=== PATIENT | female | born 1935 | race Caucasian/White ===

== ENCOUNTER 2016-07-01 09:57 | Outpatient (CLI) | payer MEDICARE | END 2016-07-01 09:58 | disposition home or self-care (01) | DX: I48.2 Chronic atrial fibrillation (principal); Z79.01 Long term (current) use of anticoagulants ==

== ENCOUNTER 2016-07-03 11:08 | Outpatient (CLI) | payer MEDICARE | END 2016-07-03 11:09 | disposition home or self-care (01) | DX: I50.9 Heart failure, unspecified (principal); I50.32 Chronic diastolic (congestive) heart failure; I27.2 Other secondary pulmonary hypertension; I36.1 Nonrheumatic tricuspid (valve) insufficiency ==

== ENCOUNTER 2016-07-29 12:06 | Outpatient (CLI) | payer MEDICARE | END 2016-07-29 12:07 | disposition home or self-care (01) | DX: I48.2 Chronic atrial fibrillation (principal); Z79.01 Long term (current) use of anticoagulants ==

== ENCOUNTER 2016-08-27 10:42 | Outpatient (CLI) | payer MEDICARE | END 2016-08-27 10:43 | disposition home or self-care (01) | DX: I48.2 Chronic atrial fibrillation (principal); Z79.01 Long term (current) use of anticoagulants ==

== ENCOUNTER 2016-09-03 09:51 | Outpatient (CLI) | payer MEDICARE | END 2016-09-03 09:52 | disposition home or self-care (01) | DX: I48.2 Chronic atrial fibrillation (principal); Z79.01 Long term (current) use of anticoagulants ==

== ENCOUNTER 2016-09-24 10:24 | Outpatient (CLI) | payer MEDICARE | END 2016-09-24 10:25 | disposition home or self-care (01) | DX: I48.2 Chronic atrial fibrillation (principal); Z79.01 Long term (current) use of anticoagulants ==

== ENCOUNTER 2016-10-22 08:50 | Outpatient (CLI) | payer MEDICARE | END 2016-10-22 08:51 | disposition home or self-care (01) | DX: I48.2 Chronic atrial fibrillation (principal); Z79.01 Long term (current) use of anticoagulants ==

== ENCOUNTER 2016-11-19 09:22 | Outpatient (CLI) | payer MEDICARE | END 2016-11-19 09:23 | disposition home or self-care (01) | LOC: LAB.F 09:22 | PROVIDERS: ATTEND Student in an Organized Health Care Education/Training Program | DX: I48.2 Chronic atrial fibrillation (principal) | CPT/HCPCS: 85610 ==

== ENCOUNTER 2016-12-10 10:04 | Outpatient (CLI) | payer MEDICARE | END 2016-12-10 10:05 | disposition home or self-care (01) | LOC: LAB.F 10:04 | PROVIDERS: ATTEND Student in an Organized Health Care Education/Training Program | DX: I48.2 Chronic atrial fibrillation (principal) | CPT/HCPCS: 85610 ==

== ENCOUNTER 2016-12-22 23:26 | Outpatient (CLI) | payer MEDICARE | END 2016-12-22 23:59 | disposition critical access hospital (66) | LOC: EMS 23:26 | PROVIDERS: ATTEND Surgery | DX: R53.83 Other fatigue (principal); R41.0 Disorientation, unspecified; R53.1 Weakness | CPT/HCPCS: A0425; A0427 ==

== ENCOUNTER 2016-12-22 23:55 | Observation (INO) | payer MEDICARE ==
[2016-12-23] MEDS ORDERED: SODIUM CHLORIDE 0.9% 1,000 ML IV ONE (00:03)
--- NOTE | 2016-12-23 00:14 | ED Physician Documentation ---
PD HPI ALTERED MENTAL STATUS - Stated complaint Stated Complaint: ALOC/WEAK - Chief complaint Chief Complaint: Neuro - History obtained from History obtained from: Patient, EMS - History of Present Illness Timing - onset: Today Timing - duration: Other (states has felt "off" all day.) Timing - details: Abrupt onset (awoke this am in a "fog") Quality / character: Confused. No: Less responsive, Unresponsive, Disoriented, Memory Loss, Agitated, Combative, Hallucinating Associated symptoms: General weakness. No: Fever, Headache, Stiff neck, Dyspnea , Cough, NVD, Urinary sx, Focal weakness, Seizure activity, Syncope Contributing factors: Anticoagulated, Diabetic Basline status: Alert and oriented X 3, Ambulatory, Independent Treatment COMPLETION MANAGER: Accucheck (53) Similar symptoms before: Has not had sx before Recently seen: Not recently seen Review of Systems Ten Systems: 10 systems reviewed and negative Constitutional: reports: Chills (fels cold). denies: Fever Eyes: denies: Decreased vision, Photophobia Ears: denies: Ear pain Nose: denies: Rhinorrhea / runny nose, Congestion Throat: denies: Sore throat Cardiac: denies: Chest pain / pressure Respiratory: denies: Dyspnea, Cough, Wheezing GI: denies: Abdominal Pain, Nausea, Vomiting, Diarrhea : denies: Dysuria, Frequency, Hesitancy Skin: denies: Rash Musculoskeletal: denies: Neck pain, Back pain Neurologic: reports: Confused, Altered mental status. denies: Focal weakness, Numbness, Syncope, Seizure, Headache PD PAST MEDICAL HISTORY - Past Medical History Past Medical History: Yes Cardiovascular: Hypertension, Atrial fibrillation - Present Medications Home Medications: Ambulatory Orders Medication Instructions Recorded Confirmed Biotin 5,000 mcg ORAL BID 12/23/16 12/23/16 Calcium Carbonate 600 mg ORAL BID 12/23/16 12/23/16 Cholecalciferol (Vitamin D3) 2,000 mcg ORAL TID 12/23/16 12/23/16 [Vitamin D3] Furosemide 40 mg ORAL DAILY 12/23/16 12/23/16 Loratadine [Claritin] 5 mg ORAL DAILY 12/23/16 12/23/16 Losartan [Cozaar] 25 mg ORAL BID 12/23/16 12/23/16 Metoprolol Succinate 50 mg ORAL BID 12/23/16 12/23/16 Multivitamin [Multiple Vitamins] 2 tab ORAL DAILY 12/23/16 12/23/16 Oxybutynin [Ditropan] 5 mg ORAL DAILY 12/23/16 12/23/16 Spironolactone 50 mg ORAL DAILY 12/23/16 12/23/16 Tramadol HCl [Tramadol HCl] 50 mg ORAL BID 12/23/16 12/23/16 Verapamil ER [Calan SA] 90 mg ORAL BID 12/23/16 12/23/16 Warfarin [Coumadin] 5 mg ORAL DAILY 12/23/16 12/23/16 - Allergies Allergies/Adverse Reactions: Allergies Allergy/AdvReac Type Severity Reaction Status Date / Time codeine Allergy Unknown Verified 12/23/16 00:04 Penicillins Allergy Unknown Verified 12/23/16 00:04 Sulfa (Sulfonamide Allergy Unknown Verified 12/23/16 00:04 Antibiotics) - Living Situation Living Arrangement: reports: At home - Social History Does the pt smoke?: No Does the pt have substance abuse?: No - Family History Family history: reports: Non contributory PD ED PE NORMAL - Vitals Vital signs reviewed: Yes - General General: No acute distress, Other (alert, oriented to person, place and time, but slow to respond at times) - HEENT HEENT: Atraumatic, PERRL, Moist mucous membranes, Pharynx benign - Neck Neck: Supple, no meningeal sign - Cardiac Cardiac: RRR, Strong equal pulses - Respiratory Respiratory: No respiratory distress, Clear bilaterally - Abdomen Abdomen: Soft, Non tender, Non distended - Back Back: No spinal TTP - Derm Derm: Warm and dry - Extremities Extremities: No tenderness to palpate, No edema, No calf tenderness / cord - Neuro Neuro: Alert and oriented X 3, dosier operator 2-12 intact, No motor deficit, No sensory deficit, Normal speech - Psych Psych: Normal mood, Normal affect Results - Vitals Vitals: Vital Signs - 24 hr 12/22/16 12/23/16 12/23/16 23:57 00:44 01:07 Temperature 35.6 C L Heart Rate 93 92 Respiratory 14 14 Rate Blood Pressure 132/61 H 114/55 L O2 Saturation 100 99 Oxygen O2 Source Room air - EKG (time done) 0038 Rate: Rate (enter#) (89) Rhythm: Atrial fibrillation Mart: Normal Intervals: RBBB Ischemia: Non specific changes Compare to prior EKG: Old EKG unavailable - Labs Labs: Laboratory Tests 12/23/16 12/23/16 12/23/16 00:08 00:08 00:08 WBC 13.7 H RBC 3.86 L Hgb 12.4 Hct 37.5 MCV 97.1 MCH 32.2 H MCHC 33.1 RDW 14.0 Plt Count 254 MPV 7.8 L Neut # 11.6 H Lymph # 0.9 L [place] # 1.1 H Eos # 0.1 Baso # 0.1 Absolute Nucleated RBC 0.01 Nucleated RBCs 0.0 PT INR Sodium 138 Potassium 3.3 L Chloride 106 Carbon Dioxide 20 L Anion Gap 12.0 BUN 55 H Creatinine 1.6 H Estimated GFR (MDRD) 31 L Glucose 148 H Calcium 9.2 Total Bilirubin 0.6 AST 40 ALT 27 Alkaline Phosphatase 74 Troponin I Total Protein 7.0 Albumin 4.4 Globulin 2.6 Albumin/Globulin Ratio 1.7 Lipase 49 TSH 2.76 Free T4 Urine Color Urine Clarity Urine pH Ur Specific [place] Urine Protein Urine Glucose (UA) Urine Ketones Urine Occult Blood Urine Nitrite Urine Bilirubin Urine Urobilinogen Ur Leukocyte Esterase Urine RBC Urine WBC Ur Squamous Epith Cells Urine Bacteria Ur Microscopic Review Urine Culture Comments Salicylates < 6.0 Urine Opiates Screen Ur Oxycodone Screen Urine Methadone Screen Ur Propoxyphene Screen Acetaminophen < 10 L Ur Barbiturates Screen Ur Tricyclics Screen Ur Phencyclidine Scrn Ur Amphetamine Screen U Methamphetamines Scrn U Benzodiazepines Scrn Urine Cocaine Screen U Cannabinoids Screen Ethyl Alcohol < 5.0 12/23/16 12/23/16 12/23/16 00:08 00:08 00:08 WBC RBC Hgb Hct MCV MCH MCHC RDW Plt Count MPV Neut # Lymph # [place] # Eos # Baso # Absolute Nucleated RBC Nucleated RBCs PT 40.4 H INR 3.5 H Sodium Potassium Chloride Carbon Dioxide Anion Gap BUN Creatinine Estimated GFR (MDRD) Glucose Calcium Total Bilirubin AST ALT Alkaline Phosphatase Troponin I 0.05 Total Protein Albumin Globulin Albumin/Globulin Ratio Lipase TSH Free T4 1.13 Urine Color Urine Clarity Urine pH Ur Specific [place] Urine Protein Urine Glucose (UA) Urine Ketones Urine Occult Blood Urine Nitrite Urine Bilirubin Urine Urobilinogen Ur Leukocyte Esterase Urine RBC Urine WBC Ur Squamous Epith Cells Urine Bacteria Ur Microscopic Review Urine Culture Comments Salicylates Urine Opiates Screen Ur Oxycodone Screen Urine Methadone Screen Ur Propoxyphene Screen Acetaminophen Ur Barbiturates Screen Ur Tricyclics Screen Ur Phencyclidine Scrn Ur Amphetamine Screen U Methamphetamines Scrn U Benzodiazepines Scrn Urine Cocaine Screen U Cannabinoids Screen Ethyl Alcohol 12/23/16 01:09 WBC RBC Hgb Hct MCV MCH MCHC RDW Plt Count MPV Neut # Lymph # [place] # Eos # Baso # Absolute Nucleated RBC Nucleated RBCs PT INR Sodium Potassium Chloride Carbon Dioxide Anion Gap BUN Creatinine Estimated GFR (MDRD) Glucose Calcium Total Bilirubin AST ALT Alkaline Phosphatase Troponin I Total Protein Albumin Globulin Albumin/Globulin Ratio Lipase TSH Free T4 Urine Color LT. YELLOW Urine Clarity SL. CLOUDY Urine pH 5.0 Ur Specific [place] 1.015 Urine Protein NEGATIVE Urine Glucose (UA) NEGATIVE Urine Ketones NEGATIVE Urine Occult Blood NEGATIVE Urine Nitrite NEGATIVE Urine Bilirubin NEGATIVE Urine Urobilinogen 0.2 (NORMAL) Ur Leukocyte Esterase SMALL H Urine RBC 0-5 Urine WBC 6-10 H Ur Squamous Epith Cells MOD Squamous H Urine Bacteria Rare Ur Microscopic Review INDICATED Urine Culture Comments NOT INDICATED Salicylates Urine Opiates Screen NEGATIVE Ur Oxycodone Screen NEGATIVE Urine Methadone Screen NEGATIVE Ur Propoxyphene Screen NEGATIVE Acetaminophen Ur Barbiturates Screen NEGATIVE Ur Tricyclics Screen NEGATIVE Ur Phencyclidine Scrn NEGATIVE Ur Amphetamine Screen NEGATIVE U Methamphetamines Scrn NEGATIVE U Benzodiazepines Scrn NEGATIVE Urine Cocaine Screen NEGATIVE U Cannabinoids Screen NEGATIVE Ethyl Alcohol - Rads (name of study) head CT Radiology: Prelim report reviewed, EMP read contemporaneously, See rad report ( No acute intracranial abnormality) cxr Radiology: Prelim report reviewed, EMP read contemporaneously, See rad report ( no acute disease) PD MEDICAL DECISION MAKING - ED course Complexity details: reviewed results, re-evaluated patient, considered differential, d/w patient, d/w family ED course: Patient is a 80-year-old female who lives alone at home who presents to the ED with altered mental status. Had difficulty speaking and spoke slowly initially upon arrival to the emergency department. This did improve in the ED. She appears to have a UTI and will place on Rocephin for this. Her INR is mildly elevated, will likely hold her next warfarin dose. Family states that she has been having syncopal events at home as well and spans of time where she does not remember what happened. She is being followed by cardiology and is supposed to have a Holter monitor placed. Unclear etiology of her altered mental status, but given the UTI, leukocytosis and altered mental status will place in observation. Discussed the case with Dr. Gibson, hospitalist who accepts. This document was made in part using voice recognition software. While efforts are made to proofread this document, sound alike and grammatical errors may occur. Departure - Departure Disposition: ED Place in Observation Clinical Impression: UTI (urinary tract infection) Qualifiers: Urinary tract infection type: acute cystitis Hematuria presence: without hematuria Qualified Code(s): N30.00 - Acute cystitis without hematuria Altered mental status Qualifiers: Altered mental status type: unspecified Qualified Code(s): R41.82 - Altered mental status, unspecified Leukocytosis Qualifiers: Leukocytosis type: unspecified Qualified Code(s): D72.829 - Elevated white blood cell count, unspecified Condition: Stable Discharge Date/Time: 12/23/16 03:26
[2016-12-23 00:17] LABS: BASOPHILS # (AUTO) 0.1 10^3/uL (0.0-0.1); BASOPHILS % (AUTO) 0.5 %; EOSINOPHILS # (AUTO) 0.1 10^3/uL (0.0-0.7); EOSINOPHILS % (AUTO) 0.4 %; HCT - HEMATOCRIT 37.5 % (37.0-47.0); HGB - HEMOGLOBIN 12.4 g/dL (12.0-16.0); LYMPHOCYTES # (AUTO) 0.9 10^3/uL (1.5-3.5); LYMPHOCYTES % (AUTO) 6.9 %; MEAN CORPUSCULAR HEMOGLOBIN 32.2 pg (27.0-31.0); MEAN CORPUSCULAR HGB CONC 33.1 g/dL (32.0-36.0); MEAN CORPUSCULAR VOLUME 97.1 fL (81.0-99.0); MEAN PLATELET VOLUME 7.8 fL (7.9-10.8); MONOCYTES # (AUTO) 1.1 10^3/uL (0.0-1.0); MONOCYTES % (AUTO) 7.8 %; NEUTROPHILS # (AUTO) 11.6 10^3/uL (1.5-6.6); NEUTROPHILS % (AUTO) 84.4 %; RED BLOOD COUNT 3.86 10^6/uL (4.20-5.40); UNCORRECTED WHITE BLOOD COUNT 13.7 x10^3/uL; WHITE BLOOD COUNT 13.7 x10^3/uL (4.8-10.8)
[2016-12-23 00:21] LABS: INR 3.5 (0.8-1.2); PT - PROTHROMBIN TIME 40.4 secs (9.9-12.6)
[2016-12-23 00:30] LABS: ALBUMIN/GLOBULIN RATIO 1.7 (1.0-2.2); BILIRUBIN,TOTAL 0.6 mg/dL (0.2-1.0); BUN - BLOOD UREA NITROGEN 55 mg/dL (6-20); CALCIUM 9.2 mg/dL (8.5-10.3); CARBON DIOXIDE - CO2 20 mmol/L (21-32); CHLORIDE 106 mmol/L (101-111); CREATININE 1.6 mg/dL (0.4-1.0); GFR - MDRD 31 (>89); GLUCOSE 148 mg/dL (70-100); LIPASE 49 U/L (22-51); POTASSIUM 3.3 mmol/L (3.5-5.0); SALICYLATE < 6.0 mg/dL; SODIUM 138 mmol/L (135-145)
[2016-12-23 00:31] LABS: ACETAMINOPHEN < 10 ug/mL (10-30)
--- NOTE | 2016-12-23 00:52 | CT Preliminary Report ---
Exam: CT Head W/O IMPRESSION: Generalized age-related cortical atrophic changes without evidence of acute intracranial abnormality. [facility] SITE ID: [id number]
--- NOTE | 2016-12-23 00:55 | CT Report ---
EXAM: CT HEAD EXAM DATE: 12/23/2016 12:33 AM. CLINICAL HISTORY: Altered level of consciousness. COMPARISON: None. TECHNIQUE: Multiaxial CT images were obtained from the foramen magnum to the vertex. IV contrast: Non e. Reformats: Coronal. In accordance with CT protocol optimization, one or more of the following dose reduction techniques w ere utilized for this exam: automated exposure control, adjustment of mA and/or KV based on patient s ize, or use of iterative reconstructive technique. FINDINGS: Parenchyma: No intraparenchymal hemorrhage. No evidence of mass, midline shift, or CT findings of acu te infarction. Garcia-white differentiation is distinct. Extraaxial Spaces: Normal for age. No subdural or epidural collections identified. Ventricles: The ventricles and cortical sulci are moderately enlarged, consistent with age-related ti ssue loss. Sinuses: Imaged paranasal sinuses, orbits, and mastoids show no significant abnormality. Bones: No evidence of fracture or calvarial defect. Other: Mild diffuse chronic microangiopathic white matter changes are evident. Mild intracranial athe rosclerosis is noted. IMPRESSION: Generalized age-related cortical atrophic changes without evidence of acute intracranial abnormality. [facility] Referring Provider Line: [phone] SITE ID: [id number]
[2016-12-23 01:42] LABS: BILIRUBIN,URINE NEGATIVE (NEGATIVE)
[2016-12-23 01:56] LABS: UA w/ MICROSCOPIC CHARGE YES
[2016-12-23 01:57] LABS: UR CULTURE IF IND NOT INDICATED
[2016-12-23] MEDS ORDERED: cefTRIAXone 1 GM in SODIUM CHLORIDE 0.9% MINIBAG 100 ML IV STA (01:59)
[2016-12-23] MEDS ORDERED: cefTRIAXone 1 GM VIAL ONE (02:09)
[2016-12-23] MEDS ORDERED: SODIUM CHLORIDE FLUSH 0.9% 10 ML SYRINGE IVP PRN (02:10)
[2016-12-23] MEDS ORDERED: ONDANSETRON 4 MG/2 ML VIAL IVP PRN (02:10)
[2016-12-23] MEDS ORDERED: PROCHLORPERAZINE 10 MG/2 ML VIAL IVP PRN (02:10)
[2016-12-23] MEDS ORDERED: ACETAMINOPHEN 325 MG TABLET PO PRN (02:10)
[2016-12-23] MEDS ORDERED: NS W/20 MEQ KCL 1,000 ML IV SCH (03:00)
--- NOTE | 2016-12-23 03:07 | XRAY Preliminary Report ---
Exam: XR Chest 2 View PA/LAT IMPRESSION: Stable appearance of the chest without acute cardiopulmonary abnormality. [facility] SITE ID: [id number]
--- NOTE | 2016-12-23 03:09 | XRAY Report ---
EXAM: CHEST RADIOGRAPHY EXAM DATE: 12/23/2016 02:29 AM. CLINICAL HISTORY: Leukocytosis, altered level of consciousness. COMPARISON: 03/26/2007 TECHNIQUE: 2 views. FINDINGS: Lungs/Pleura: No focal opacities evident. No pleural effusion. No pneumothorax. Normal volumes. Mediastinum: Nonspecific enlargement of the right pulmonary hilum, probably due to a prominent right descending pulmonary artery. This is stable from the prior exam. There is mild enlargement of the car diac silhouette. No pulmonary vascular congestion. Other: Left shoulder prosthesis noted. There is moderate multilevel degenerative change within the sp ine. IMPRESSION: Stable appearance of the chest without acute cardiopulmonary abnormality. [facility] Referring Provider Line: [phone] SITE ID: [id number]
--- NOTE | 2016-12-23 04:20 | HISTORY & PHYSICAL EXAMINATION ---
Chief Complaint - Chief Complaint Chief Complaint: weakness and confusion History of Present Illness - Admitted From Admitted From:: Emergency department - History Obtained From Records Reviewed: yes History obtained from: patient and daughter Exam Limitations: none - History of Present Illness HPI Comment/Other: Patient is a very pleasant 80-year-old female with a past medical history significant for atrial fibrillation on Coumadin, hypertension, congestive heart failure, coronary artery disease, osteoarthritis and history of bariatric surgery who presented to the emergency department with a chief complaint of weakness and confusion. The patient states that over the last month she has had several episodes of losing consciousness and not being able to remember periods of time. She states that she saw her primary care physician regarding this complaint 2 weeks ago and had blood tests as well as an echocardiogram at that time. She was then sent to a barrel bung remover and dumper just one week ago because of some changes on her echocardiogram. She states that the barrel bung remover and dumper was concerned that she may be on too many diuretics but did not change her medication. He did however order a Holter monitor which the patient is still awaiting. The patient states that today she just did not feel her normal self and this evening she went to the bathroom and had another episode where she lost consciousness. She states that she remembers waking up in the bathroom. She states that she then went to her bedroom and lied in bed for some time but she felt as though she was confused and was feeling dizzy. She states that she feels weak and confused as though everything is very foggy. She denies any fevers or chills. She does state that about a month ago she was having some dysuria and increased urinary frequency. She states that the dysuria has resolved but she continues to have increased frequency. She denies any abdominal pain, she does state that she feels nauseous but has not been vomiting. She denies any chest pain or palpitations she denies any headache or focal neurologic deficits. She denies having had any diarrhea. She states that she's been eating and drinking normally. She denies any changes in her appetite or recent unintentional weight loss. The patient denies any cough or shortness of air. She also denies any increased lower swelling, PND or orthopnea. The patient states that she pressed her life alert button in her room because she felt as though she was weak and confused. When the paramedics arrived at her home they found that she had a blood sugar of 53 and her temperature was 35.5. She was given some glucose with which she didn't really have an improvement in her mentation. On presentation to the emergency department the patient was found to have a temperature of 35.6, heart rate was in the 90s and she was saturating well on room air. She did not seem to be in any acute distress but continued to feel as though she was confused. She underwent routine lab work which did reveal a leukocytosis of 13.7, she also had hypokalemia with potassium of 3.3 and was mildly acidotic with an elevated creatinine of 1.6 from a baseline of 0.6-6 months earlier. The patient's troponin was 0.05 her EKG revealed atrial fibrillation with no obvious ST elevations or ischemic changes. The remainder the patient's electrolytes were within normal limits and her INR was slightly elevated at 3.5. The patient's urinalysis showed small leukocyte Estrace with 6- 10 WBCs and bacteria. Patient's UA tox was negative and her chest x-ray revealed no acute cardiopulmonary abnormalities. The patient also underwent a CT of her head which showed generalized age-related cortical atrophic changes without evidence of acute intracranial abnormality. The patient was placed in observation for treatment of her UTI with altered mental status as well as hydration given her acute kidney injury and potassium replacement. She will also be monitored on telemetry given her recent syncopal episodes. Review of Systems - Constitutional Constitutional: reports: Weakness. denies: Fatigue, Fever, Chills, Malaise, Poor appetite, Diaphoresis, Night sweats, Weight gain, Weight loss - Eyes Eyes: denies: Pain, Irritation, Blurred vision, Spots in vision, Vision loss, Dipolpia - Ears, Nose & Throat Ears, Nose & Throat: denies: Ear pain, Hearing loss, Hearing aids, Nasal pain, Nasal discharge, Nosebleeds, Nasal obstruction, Nasal congestion, Sore throat, Hoarseness - Cardiovascular Cariovascular: reports: Irregular heart rate, Lightheadedness, Syncope. denies : Palpitations, Chest pain, Edema, Exertional dyspnea, Decr. exercise tolerance , Orthopnea - Respiratory Respiratory: denies: Cough, Sputum production, Wheezing, Hemoptysis, Orthopnea, SOB at rest, SOB with exertion, Pleuritic pain - Gastrointestinal Gastrointestinal: reports: Nausea. denies: Abdominal pain, Abdominal distention , Constipation, Diarrhea, Change in bowel habits, Black stools, Bloody stools, Vomiting, Bile emesis, Coffee grounds emesis, Poor appetite - Genitourinary Genitourinary: reports: Dysuria, Frequency. denies: Urgency, Hematuria, Flank pain - Musculoskeletal Musculoskeletal: denies: Muscle pain, Back pain, Muscle aches, Stiffness, Limited range of motion, Muscle weakness, Joint pain, Joint swelling - Integumentary Integumentary: denies: Rash, Lesions, Dryness - Neurological Neurological: reports: General weakness, Dizziness, Memory problems. denies: Focal weakness, Headache, Numbness, Abnormal gait, Seizures, Incoordination, Slurred speech - Psychiatric Psychiatric: denies: Depression, Anxiety, Suicidal - Endocrine Endocrine: reports: Polyuria. denies: Polydypsia, Polyphagia, Intolerance to cold, Intolerance to heat - Hematologic/Lymphatic Hematologic/Lymphatic: denies: Anemia, Petechiae, Lymphadenopathy History - Past Medical History Cardiovascular: reports: Congestive heart failure, Hypertension, High cholesterol, Coronary artery disease, Atrial fibrillation Respiratory: reports: Pneumonia Neuro: reports: Headache/migraine, Fainting Endocrine/Autoimmune: reports: None GI: reports: Ulcers : reports: Incontinence, Kidney stones HEENT: reports: Chronic hearing loss, Other Musculoskeletal: reports: Osteoarthritis Derm: reports: None Other Past Medical History: 1. Atrial fibrillation. 2. Hypertension. 3. Congestive heart failure. 4. Coronary artery disease. 5. History of morbid obesity status post bariatric surgery. 6. History of obstructive sleep apnea improved after bariatric surgery. 7. Carpal tunnel release. 8. Left shoulder replacement. 9. Osteoarthritis. 10. Cataracts - Past Surgical History General: reports: Colonoscopy, Other Ortho: reports: Knee replacement, Shoulder arthroplasty, Carpal Tunnel surgery /COLOR CARD MAKER: reports: Hysterectomy HEENT: reports: Tonsil/Adenoidectomy - Family & Social History Family History: Mother: , CAD (Mom with CAD and CHF), Father: , COPD/Emphysema (Dad had emphysema), Sister: , Cancer (Sister with lung cancer and brother with colon cancer), Brother: , Cancer Family History Comment/Other: mother had congestive heart failure and father had emphysema. sister had lung cancer and brother had colon ca Living arrangement: At home Living Situation: Alone Social History Notes: The patient lives alone at home in [facility]. She is completely independent she does not use any assistance devices for walking. She still is very active in her garden. She has 4 children. Her and her moved to [facility] in 1997 to retired. Previous to that the patient lives in [place]. The patient worked for the [employer] in [place]. The patient is she has a dog. Patient has never smoked she does not drink alcohol and denies any illicit drug use - Substance History Use: Uses substance without health or social issues: NONE Abuse: Recurrent use of substance despite neg consequences: NONE Dependence: Experiences withdrawal or developed tolerances: NONE - POLST Patient has POLST: No POLST Status: DNR Meds/Allgy - Home Medications Home Medications: Ambulatory Orders Medication Instructions Recorded Confirmed Biotin 5,000 mcg ORAL BID 12/23/16 12/23/16 Calcium Carbonate 600 mg ORAL BID 12/23/16 12/23/16 Cholecalciferol (Vitamin D3) 2,000 mcg ORAL TID 12/23/16 12/23/16 [Vitamin D3] Furosemide 40 mg ORAL DAILY 12/23/16 12/23/16 Loratadine [Claritin] 5 mg ORAL DAILY 12/23/16 12/23/16 Losartan [Cozaar] 25 mg ORAL BID 12/23/16 12/23/16 Metoprolol Succinate 50 mg ORAL BID 12/23/16 12/23/16 Multivitamin [Multiple Vitamins] 2 tab ORAL DAILY 12/23/16 12/23/16 Oxybutynin [Ditropan] 5 mg ORAL DAILY 12/23/16 12/23/16 Spironolactone 50 mg ORAL DAILY 12/23/16 12/23/16 Tramadol HCl [Tramadol HCl] 50 mg ORAL BID 12/23/16 12/23/16 Verapamil ER [Calan SA] 90 mg ORAL BID 12/23/16 12/23/16 Warfarin [Coumadin] 5 mg ORAL DAILY 12/23/16 12/23/16 - Allergies Allergies/Adverse Reactions: Allergies Allergy/AdvReac Type Severity Reaction Status Date / Time codeine Allergy Unknown Verified 12/23/16 00:04 Penicillins Allergy Unknown Verified 12/23/16 00:04 Sulfa (Sulfonamide Allergy Unknown Verified 12/23/16 00:04 Antibiotics) Exam - Vital Signs Reviewed Vital Signs: Yes Vital Signs: Vital Signs x48h Temp Pulse Pulse Resp BP BP Pulse Ox 12/23/16 03:53 36.2 C L 79 18 138/70 H 99 12/23/16 02:33 36.4 C L 68 15 116/63 100 12/23/16 01:07 92 14 114/55 L 99 12/23/16 00:44 35.6 C L 12/22/16 23:57 93 14 132/61 H 100 - Physical Exam General Appearance: positive: No acute distress, Alert, Other (Slow to answer quesetions at times but states her confusion is much better after she got fluids and antibiotics) Eyes Bilateral: positive: Normal inspection, PERRL, EOMI, No lid inflammation, Conjunctivae nml, No scleral icterus ENT: positive: ENT inspection nml, Pharynx nml. negative: Purulent nasal drainage, Pharyngeal erythema, Oral lesions, Dry mucous membranes Neck: positive: Nml inspection, Thyroid nml, No JVD, Trachea midline. negative : Thyromegaly, Lymphadenopathy (R), Lymphadenopathy (L), Carotid bruit, Tracheal deviation Respiratory: positive: Chest non-tender, No respiratory distress, Breath sounds nml. negative: Wheezes, Rales, Rhonchi Cardiovascular: positive: No gallop, Irregularly irregular, Systolic murmur Peripheral Pulses: positive: 2+ Abdomen: positive: Non-tender, No organomegaly, Nml bowel sounds, No distention. negative: Guarding, Rebound, Hepatomegaly Skin: positive: Color nml, No rash, Warm. negative: Cyanosis, Pallor, Skin rash Extremities: positive: Non-tender, Full ROM, Nml appearance, No pedal edema. negative: Joint swelling Neurologic/Psychiatric: positive: Oriented x3, CN's nml (2-12), Motor nml, Sensation nml, Mood/affect nml Conclusion/Plan - Problem List (1) UTI (urinary tract infection) Conclusion/Plan: Patient presented with weakness and confusion. She was found to have a leukocytosis and was hypothermic on presentation. Patient's UA revealed leukocyte esterase positive, with WBC and bacteria. Patient had also been having dysuria and increased urinary frequency over the last month. Patients UA did reveal squamous cells but given her symptoms this was enough to diagnose a UTI. Plan: IV ceftriaxone IVFs Repeat UA and urine cx Monitor Qualifiers: Urinary tract infection type: acute cystitis Hematuria presence: without hematuria Qualified Code(s): N30.00 - Acute cystitis without hematuria (2) Syncope Conclusion/Plan: Patient appears to be having syncopal episodes for the past month She had what appears to be another syncopal episode in her bathroom today She has seen her PCP regarding these episodes and underwent lab work and an echocardiogram which she was told had changed from previous therefore she was sent to her barrel bung remover and dumper Holter monitor has been ordered as an outpatient She did appear dehydrated on presentation clinically and with labs It is possible that she maybe having these syncopal episodes secondary to dehydration due to her diuretics and UTI. She could also be having arrhythmias given her history of CHF and atrial fibrillation. These are unlikely to be vasovagal episodes. Stroke or TIA is also unlikely Plan: Telemetry monitoring Treat UTI and give IVFs Hold lasix, lisinopril and aldactone Carotid doppler Qualifiers: Syncope type: unspecified Qualified Code(s): R55 - Syncope and collapse (3) PUSHPA (acute kidney injury) Conclusion/Plan: Likely prerenal as patient appears dry on exam and on labs with mild acidosis and hypokalemia and elevated BUN Home Visitor is elevated to 1.6 from baseline of 0.6 just 6 months ago Likely secondary to over diuresis in the setting of UTI Plan: IVFs with potassium Hold lasix, aldactone and lisinopril Avoid nephrotoxic agents Monitor Home Visitor (4) Hypokalemia Conclusion/Plan: Likely secondary to dehydration and over diuresis Plan: Hold lasix Give IVF with K Recheck K (5) CHF (congestive heart failure) Conclusion/Plan: Patient has history of CHF appears likely to be systolic CHF given her medications She is on optimal meds for systolic HF with metoprolol, lisinopril and aldactone Patient also on lasix but appears to be dry She does not appear to be in an exacerbation Plan: Hold lasix, lisinopril and aldactone given PUSHPA and dehydration Give gentle hydration given history of CHF Echo done at PCP office 2 weeks ago therefore no need for echo Monitor on tele for arrhythmias Qualifiers: Congestive heart failure type: systolic Congestive heart failure chronicity : chronic Qualified Code(s): I50.22 - Chronic systolic (congestive) heart failure (6) Atrial fibrillation Conclusion/Plan: Currently in Afib with controlled rate On metoprolol for rate control On coumadin for anticoagulation CHADS2 score is 3 INR is 3.5 Plan: Hold coumadin for elevated INR Continue metoprolol Monitor on tele Qualifiers: Atrial fibrillation type: chronic Qualified Code(s): I48.2 - Chronic atrial fibrillation - Lab Results Lab results reviewed: Yes Fish Bones: 12/23/16 00:08 12/23/16 00:08 Other Lab Results: Laboratory Results WBC 13.7 x10^3/uL (4.8-10.8) H 12/23/16 00:08 RBC 3.86 10^6/uL (4.20-5.40) L 12/23/16 00:08 Hgb 12.4 g/dL (12.0-16.0) 12/23/16 00:08 Hct 37.5 % (37.0-47.0) 12/23/16 00:08 MCV 97.1 fL (81.0-99.0) 12/23/16 00:08 MCH 32.2 pg (27.0-31.0) H 12/23/16 00:08 MCHC 33.1 g/dL (32.0-36.0) 12/23/16 00:08 RDW 14.0 % (12.0-15.0) 12/23/16 00:08 Plt Count 254 10^3/uL (130-450) 12/23/16 00:08 MPV 7.8 fL (7.9-10.8) L 12/23/16 00:08 Neut # 11.6 10^3/uL (1.5-6.6) H 12/23/16 00:08 Lymph # 0.9 10^3/uL (1.5-3.5) L 12/23/16 00:08 [place] # 1.1 10^3/uL (0.0-1.0) H 12/23/16 00:08 Eos # 0.1 10^3/uL (0.0-0.7) 12/23/16 00:08 Baso # 0.1 10^3/uL (0.0-0.1) 12/23/16 00:08 Absolute Nucleated RBC 0.01 x10^3/uL 12/23/16 00:08 Nucleated RBCs 0.0 /100WBC 12/23/16 00:08 PT 40.4 secs (9.9-12.6) H 12/23/16 00:08 INR 3.5 (0.8-1.2) H 12/23/16 00:08 Sodium 138 mmol/L (135-145) 12/23/16 00:08 Potassium 3.3 mmol/L (3.5-5.0) L 12/23/16 00:08 Chloride 106 mmol/L (101-111) 12/23/16 00:08 Carbon Dioxide 20 mmol/L (21-32) L 12/23/16 00:08 Anion Gap 12.0 (6-13) 12/23/16 00:08 BUN 55 mg/dL (6-20) H 12/23/16 00:08 Creatinine 1.6 mg/dL (0.4-1.0) H 12/23/16 00:08 Estimated GFR (MDRD) 31 (>89) L 12/23/16 00:08 Glucose 148 mg/dL (70-100) H 12/23/16 00:08 Calcium 9.2 mg/dL (8.5-10.3) 12/23/16 00:08 Total Bilirubin 0.6 mg/dL (0.2-1.0) 12/23/16 00:08 AST 40 IU/L (10-42) 12/23/16 00:08 ALT 27 IU/L (10-60) 12/23/16 00:08 Alkaline Phosphatase 74 IU/L (42-121) 12/23/16 00:08 Troponin I 0.05 ng/mL (<0.49) 12/23/16 00:08 Total Protein 7.0 g/dL (6.7-8.2) 12/23/16 00:08 Albumin 4.4 g/dL (3.2-5.5) 12/23/16 00:08 Globulin 2.6 g/dL (2.1-4.2) 12/23/16 00:08 Albumin/Globulin Ratio 1.7 (1.0-2.2) 12/23/16 00:08 Lipase 49 U/L (22-51) 12/23/16 00:08 TSH 2.76 uIU/mL (0.34-5.60) 12/23/16 00:08 Free T4 1.13 ng/dL (0.58-1.64) 12/23/16 00:08 Urine Color LT. YELLOW 12/23/16 01:09 Urine Clarity SL. CLOUDY (CLEAR) 12/23/16 01:09 Urine pH 5.0 PH (5.0-7.5) 12/23/16 01:09 Ur Specific Oto 1.015 (1.002-1.030) 12/23/16 01:09 Urine Protein NEGATIVE mg/dL (NEGATIVE) 12/23/16 01:09 Urine Glucose (UA) NEGATIVE mg/dL (NEGATIVE) 12/23/16 01:09 Urine Ketones NEGATIVE mg/dL (NEGATIVE) 12/23/16 01:09 Urine Occult Blood NEGATIVE (NEGATIVE) 12/23/16 01:09 Urine Nitrite NEGATIVE (NEGATIVE) 12/23/16 01:09 Urine Bilirubin NEGATIVE (NEGATIVE) 12/23/16 01:09 Urine Urobilinogen 0.2 (NORMAL) E.U./dL (NORMAL) 12/23/16 01:09 Ur Leukocyte Esterase SMALL (NEGATIVE) H 12/23/16 01:09 Urine RBC 0-5 /HPF (0-5) 12/23/16 01:09 Urine WBC 6-10 /HPF (0-5) H 12/23/16 01:09 Ur Squamous Epith Cells MOD Squamous (<= Few) H 12/23/16 01:09 Urine Bacteria Rare /HPF (None Seen) 12/23/16 01:09 Ur Microscopic Review INDICATED 12/23/16 01:09 Urine Culture Comments NOT INDICATED 12/23/16 01:09 Salicylates < 6.0 mg/dL 12/23/16 00:08 Urine Opiates Screen NEGATIVE (NEGATIVE) 12/23/16 01:09 Ur Oxycodone Screen NEGATIVE (NEGATIVE) 12/23/16 01:09 Urine Methadone Screen NEGATIVE (NEGATIVE) 12/23/16 01:09 Ur Propoxyphene Screen NEGATIVE (NEGATIVE) 12/23/16 01:09 Acetaminophen < 10 ug/mL (10-30) L 12/23/16 00:08 Ur Barbiturates Screen NEGATIVE (NEGATIVE) 12/23/16 01:09 Ur Tricyclics Screen NEGATIVE (NEGATIVE) 12/23/16 01:09 Ur Phencyclidine Scrn NEGATIVE (NEGATIVE) 12/23/16 01:09 Ur Amphetamine Screen NEGATIVE (NEGATIVE) 12/23/16 01:09 U Methamphetamines Scrn NEGATIVE (NEGATIVE) 12/23/16 01:09 U Benzodiazepines Scrn NEGATIVE (NEGATIVE) 12/23/16 01:09 Urine Cocaine Screen NEGATIVE (NEGATIVE) 12/23/16 01:09 U Cannabinoids Screen NEGATIVE (NEGATIVE) 12/23/16 01:09 Ethyl Alcohol < 5.0 mg/dL 12/23/16 00:08 - Diagnostic Imaging Results Diagnostic Imaging Results: positive: Final report reviewed Diagnostic Imaging Results Comments: CXR: Negative CT head: Negative - EKG Results EKG Interpreted Independently: Yes EKG Findings: A fib with normal rate. No ST elevations. Issues/Core Measures - Anticipated LOS Anticipated Stay Length: Less than 2 midnights - DVT/VTE - Prophylaxis VTE/DVT Device ordered at admit?: Yes
[2016-12-23 05:28] LABS: INR 3.2 (0.8-1.2); PT - PROTHROMBIN TIME 36.7 secs (9.9-12.6)
[2016-12-23 05:40] LABS: ALBUMIN/GLOBULIN RATIO 1.6 (1.0-2.2); BILIRUBIN,TOTAL 0.5 mg/dL (0.2-1.0); CALCIUM 9.1 mg/dL (8.5-10.3); CREATININE 1.6 mg/dL (0.4-1.0); MAGNESIUM 1.9 mg/dL (1.7-2.8); PHOSPHORUS 4.1 mg/dL (2.5-4.6); POTASSIUM 4.2 mmol/L (3.5-5.0); TOTAL PROTEIN 6.5 g/dL (6.7-8.2)
[2016-12-23 06:05] LABS: BASOPHILS % (AUTO) 0.4 %; HCT - HEMATOCRIT 34.7 % (37.0-47.0); HGB - HEMOGLOBIN 11.8 g/dL (12.0-16.0); LYMPHOCYTES # (AUTO) 0.6 10^3/uL (1.5-3.5); LYMPHOCYTES % (AUTO) 8.9 %; MEAN CORPUSCULAR HEMOGLOBIN 32.5 pg (27.0-31.0); MEAN CORPUSCULAR VOLUME 95.6 fL (81.0-99.0); MEAN PLATELET VOLUME 7.2 fL (7.9-10.8); MONOCYTES # (AUTO) 0.5 10^3/uL (0.0-1.0); MONOCYTES % (AUTO) 7.5 %; NEUTROPHILS # (AUTO) 5.4 10^3/uL (1.5-6.6); NEUTROPHILS % (AUTO) 83.2 %; RED BLOOD COUNT 3.63 10^6/uL (4.20-5.40); UNCORRECTED WHITE BLOOD COUNT 6.5 x10^3/uL; WHITE BLOOD COUNT 6.5 x10^3/uL (4.8-10.8)
[2016-12-23 06:19] LABS: HEMOGLOBIN A1C 0.42 g/dL
[2016-12-23] MEDS: CHOLECALCIFEROL 1,000 UNIT TABLET PO SCH ×2 (06:23→14:03)
[2016-12-23] MEDS: SODIUM CHLORIDE FLUSH 0.9% 10 ML SYRINGE IVP SCH ×2 (06:25→14:03)
[2016-12-23] MEDS ORDERED: PANTOPRAZOLE 40 MG TABLET PO SCH (07:00)
--- NOTE | 2016-12-23 07:59 | Ultrasound Preliminary Report ---
Exam: US Carotid Doppler Complete IMPRESSION: 1. No hemodynamically significant internal carotid arterial stenoses. 2. Tortuous bilateral internal carotid arteries, particularly on the left. 3. Antegrade flow bilateral vertebral arteries. [facility] SITE ID: [id number]
[2016-12-23] MEDS ORDERED: SACCHAROMYCES BOULARDII 250 MG CAPSULE PO SCH (08:00)
--- NOTE | 2016-12-23 08:56 | Ultrasound Report ---
EXAM: CAROTID DOPPLER ULTRASOUND EXAM DATE: 12/23/2016 07:36 AM. CLINICAL HISTORY: Syncope. COMPARISON: None. TECHNIQUE: Real-time sonographic vascular imaging was performed by the presiding judge through the [employer] d arterial system with a linear transducer utilizing color-flow, Doppler flow and spectral analysis. Multiple training representative static images were saved for review. FINDINGS: Moderate calcified plaque within the left carotid bulb and ICA. Left ICA is quite tortuous with multiple 90 degree bends. Mild to moderate scattered atherosclerotic plaque in the right, bulb and ICA. Tortuous right ICA. Right: RCCA Prox: PSV 89 cm/sec. RCCA Dist: PSV 83 cm/sec, EDV 13 cm/sec. RECA: PSV 94 cm/sec. R Bulb: PSV 70 cm/sec, EDV 14 cm/sec, ICA/CCA ratio 0.84. TEJAS Prox: PSV 83 cm/sec, EDV 16 cm/sec, ICA/CCA ratio 1.0. TEJAS Mid: PSV 81 cm/sec, EDV 28 cm/sec, ICA/CCA ratio 0.98. TEJAS Dist: PSV 77 cm/sec, EDV 17 cm/sec, ICA/CCA ratio 0.93. RVA: PSV 45 cm/sec. RVA flow direction: Antegrade. Left: LCCA Prox: PSV 109 cm/sec. LCCA Dist: PSV 82 cm/sec, EDV 15 cm/sec. LECA: PSV 106 cm/sec. L Bulb: PSV 79 cm/sec, EDV 15 cm/sec, ICA/CCA ratio 0.96. LICA Prox: PSV 80 cm/sec, EDV 24 cm/sec, ICA/CCA ratio 0.98. LICA Mid: PSV 102 cm/sec, EDV 22 cm/sec, ICA/CCA ratio 1.24. LICA Dist: PSV 70 cm/sec, EDV 22 cm/sec, ICA/CCA ratio 0.85. LVA: PSV 59 cm/sec. LVA flow direction: Antegrade. Other: None. IMPRESSION: 1. No hemodynamically significant internal carotid arterial stenoses. 2. Tortuous bilateral internal carotid arteries, particularly on the left. 3. Antegrade flow bilateral vertebral arteries. Validated velocity measurements with angiographic measurements and velocity criteria are extrapolated from diameter data as defined by the Society of Radiologists in Ultrasound Consensus Conference Radi ology 2003; 229;340-346. [facility] Referring Provider Line: [phone] SITE ID: [id number]
[2016-12-23] MEDS ORDERED: CALCIUM CARBONATE CHEW 500 MG TABLET PO SCH (09:00)
[2016-12-23] MEDS ORDERED: traMADol 50 MG TABLET PO SCH (09:00)
[2016-12-23] MEDS ORDERED: VERAPAMIL ER 180 MG TABLET PO SCH (09:00)
[2016-12-23] MEDS ORDERED: POLYETHYLENE GLYCOL 3350 17 GM PACKET PO SCH (09:00)
[2016-12-23] MEDS ORDERED: METOPROLOL SUCCINATE 50 MG TABLET PO SCH (09:00)
[2016-12-23] MEDS ORDERED: Biotin 5,000 MCG PO SCH (09:00)
[2016-12-23] MEDS ORDERED: OXYBUTYNIN 5MG TABLET PO SCH (09:00)
[2016-12-23] MEDS ORDERED: LORATADINE 10 MG TABLET PO SCH (10:00)
[2016-12-23 12:17] VITALS: BP 140/83
--- NOTE | 2016-12-23 12:28 | PROVIDER PROGRESS NOTE ---
Assessment/Plan - Problem List (1) Hypotension due to medication Assessment/Plan: # UTI Ruled out pt has NO dysuria or frequency. Would not treat given no sing/sx UA Not a clean catch # Syncopal episodes suspect this is due to ANYTI-HYPERTENSIVE therapy. D/w covering for PCP and pt is on multiple bp meds. # Htn on multiple medications, presented with syncope. suspect pt having symptomatic low bp will discontinue spironolactone and losartan # hx of CHF Echo 06/07 Normal systolic function, probable abnormal diastolic function. mod- severe tricuspid insufficiency with mod pulm htn. I see no indication for spironolactone. # Atrial fibrillation Continue coumadin INR 3.2 verapamil CR 180mg 1/2 tab bid and metoprolol 50 bid # hypokalemia resolved AM labs # ARF baseline Cr 0.8 up to 1.6 today. # DVT PPX on coumadin - Current Meds Current Meds: Current Medications Generic Name Dose Route Start Last Admin Trade Name Freq PRN Reason Stop Dose Admin Acetaminophen 650 mg 12/23/16 02:10 12/23/16 04:10 Tylenol PO 650 mg Q4HR PRN Administration Pain 1 to 4 Calcium Carbonate/Glycine 500 mg 12/23/16 09:00 12/23/16 08:57 Tums PO 500 mg BID YOJANA Administration Cholecalciferol 2,000 unit 12/23/16 06:00 12/23/16 06:23 Vitamin D3 PO 2,000 unit TID YOJANA Administration Potassium Chloride/Sodium Chloride 1,000 mls @ 100 mls/hr 12/23/16 03:00 04:10 Normal Saline 0.9% W/20 Meq Kcl IV 100 mls/hr .Q10H YOJANA Administration Loratadine 10 mg 12/23/16 10:00 12/23/16 11:22 Claritin PO 10 mg DAILY YOJANA Administration Metoprolol Succinate 50 mg 12/23/16 09:00 12/23/16 08:58 Toprol Xl PO 50 mg BID YOJANA Administration Oxybutynin Chloride 5 mg 12/23/16 09:00 12/23/16 08:57 Ditropan PO 5 mg DAILY YOJANA Administration Pantoprazole Sodium 40 mg 12/23/16 07:00 12/23/16 06:23 Protonix PO 40 mg QDAC YOJANA Administration Polyethylene Glycol 17 gm 12/23/16 09:00 12/23/16 08:59 Miralax PO Not Given DAILY YOJANA Saccharomyces Boulardii 250 mg 12/23/16 08:00 12/23/16 08:57 Florastor PO 250 mg BIDWM YOJANA Administration Sodium Chloride 10 ml 12/23/16 06:00 12/23/16 06:25 Normal Saline Flush 0.9% IVP Not Given Q8HR YOJANA Tramadol HCl 50 mg 12/23/16 09:00 12/23/16 08:57 Ultram PO 50 mg BID YOJANA Administration Verapamil HCl 90 mg 12/23/16 09:00 12/23/16 08:58 Calan Sa PO 90 mg BID YOJANA Administration - Lab Result Fish Bone Diagrams: 12/23/16 05:58 12/23/16 04:40 - Additional Planning My Orders: My Active Orders 12/23/16 Evaluate and Treat OT [OT] Routine Evaluate and Treat PT [PT] Routine 12/23/16 10:00 Loratadine [Claritin] 10 mg PO DAILY Subjective - Subjective Patient Reports: Resting Comfortably, No Complaints Objective Vital Signs: Vital Signs - 24 hr 12/23/16 12/23/16 12/23/16 02:33 03:53 05:00 Temperature 36.4 C L 36.2 C L 36.4 C L Heart Rate 68 Heart Rate [ 79 63 Brachial] Respiratory 15 18 16 Rate Blood Pressure 116/63 Blood Pressure 138/70 H 122/61 [Left Brachial artery] O2 Saturation 100 99 97 12/23/16 08:00 Temperature 36.8 C Heart Rate Heart Rate [ 80 Brachial] Respiratory 16 Rate Blood Pressure Blood Pressure 128/82 H [Left Brachial artery] O2 Saturation Oxygen O2 Source Room air I&O (Last 24 Hrs): Intake and Output Totals x24h 12/21/16 12/22/16 12/23/16 23:59 23:59 23:59 Intake Total 938 Output Total 650 Balance 288 General: Alert, Oriented x3, Cooperative Cardiovascular: Other (irregular no murmur) Respiratory: Chest non-tender, No respiratory distress, Breath sounds nml Abdomen: Normal bowel sounds, Soft, No tenderness Extremities: No edema, No tenderness/swelling - Results Results: Laboratory Results WBC 6.5 x10^3/uL (4.8-10.8) 12/23/16 05:58 RBC 3.63 10^6/uL (4.20-5.40) L 12/23/16 05:58 Hgb 11.8 g/dL (12.0-16.0) L 12/23/16 05:58 Hct 34.7 % (37.0-47.0) L 12/23/16 05:58 MCV 95.6 fL (81.0-99.0) 12/23/16 05:58 MCH 32.5 pg (27.0-31.0) H 12/23/16 05:58 MCHC 34.0 g/dL (32.0-36.0) 12/23/16 05:58 RDW 14.0 % (12.0-15.0) 12/23/16 05:58 Plt Count 220 10^3/uL (130-450) 12/23/16 05:58 MPV 7.2 fL (7.9-10.8) L 12/23/16 05:58 Neut # 5.4 10^3/uL (1.5-6.6) 12/23/16 05:58 Lymph # 0.6 10^3/uL (1.5-3.5) L 12/23/16 05:58 [place] # 0.5 10^3/uL (0.0-1.0) 12/23/16 05:58 Eos # 0.0 10^3/uL (0.0-0.7) 12/23/16 05:58 Baso # 0.0 10^3/uL (0.0-0.1) 12/23/16 05:58 Absolute Nucleated RBC 0.00 x10^3/uL 12/23/16 05:58 Nucleated RBCs 0.0 /100WBC 12/23/16 05:58 PT 36.7 secs (9.9-12.6) H 12/23/16 04:40 INR 3.2 (0.8-1.2) H 12/23/16 04:40 Sodium 140 mmol/L (135-145) 12/23/16 04:40 Potassium 4.2 mmol/L (3.5-5.0) 12/23/16 04:40 Chloride 110 mmol/L (101-111) 12/23/16 04:40 Carbon Dioxide 21 mmol/L (21-32) 12/23/16 04:40 Anion Gap 9.0 (6-13) 12/23/16 04:40 BUN 55 mg/dL (6-20) H 12/23/16 04:40 Creatinine 1.6 mg/dL (0.4-1.0) H 12/23/16 04:40 Estimated GFR (MDRD) 31 (>89) L 12/23/16 04:40 Glucose 129 mg/dL (70-100) H 12/23/16 04:40 Glycated Hemoglobin 5.3 % (4.6-6.2) 12/23/16 05:58 Estim Average Glucose 105 (70-100) H 12/23/16 05:58 Calcium 9.1 mg/dL (8.5-10.3) 12/23/16 04:40 Phosphorus 4.1 mg/dL (2.5-4.6) 12/23/16 04:40 Magnesium 1.9 mg/dL (1.7-2.8) 12/23/16 04:40 Total Bilirubin 0.5 mg/dL (0.2-1.0) 12/23/16 04:40 AST 35 IU/L (10-42) 12/23/16 04:40 ALT 24 IU/L (10-60) 12/23/16 04:40 Alkaline Phosphatase 64 IU/L (42-121) 12/23/16 04:40 Troponin I 0.05 ng/mL (<0.49) 12/23/16 00:08 Total Protein 6.5 g/dL (6.7-8.2) L 12/23/16 04:40 Albumin 4.0 g/dL (3.2-5.5) 12/23/16 04:40 Globulin 2.5 g/dL (2.1-4.2) 12/23/16 04:40 Albumin/Globulin Ratio 1.6 (1.0-2.2) 12/23/16 04:40 Lipase 49 U/L (22-51) 12/23/16 00:08 TSH 2.76 uIU/mL (0.34-5.60) 12/23/16 00:08 Free T4 1.13 ng/dL (0.58-1.64) 12/23/16 00:08 Urine Color LT. YELLOW 12/23/16 01:09 Urine Clarity SL. CLOUDY (CLEAR) 12/23/16 01:09 Urine pH 5.0 PH (5.0-7.5) 12/23/16 01:09 Ur Specific [place] 1.015 (1.002-1.030) 12/23/16 01:09 Urine Protein NEGATIVE mg/dL (NEGATIVE) 12/23/16 01:09 Urine Glucose (UA) NEGATIVE mg/dL (NEGATIVE) 12/23/16 01:09 Urine Ketones NEGATIVE mg/dL (NEGATIVE) 12/23/16 01:09 Urine Occult Blood NEGATIVE (NEGATIVE) 12/23/16 01:09 Urine Nitrite NEGATIVE (NEGATIVE) 12/23/16 01:09 Urine Bilirubin NEGATIVE (NEGATIVE) 12/23/16 01:09 Urine Urobilinogen 0.2 (NORMAL) E.U./dL (NORMAL) 12/23/16 01:09 Ur Leukocyte Esterase SMALL (NEGATIVE) H 12/23/16 01:09 Urine RBC 0-5 /HPF (0-5) 12/23/16 01:09 Urine WBC 6-10 /HPF (0-5) H 12/23/16 01:09 Ur Squamous Epith Cells MOD Squamous (<= Few) H 12/23/16 01:09 Urine Bacteria Rare /HPF (None Seen) 12/23/16 01:09 Ur Microscopic Review INDICATED 12/23/16 01:09 Urine Culture Comments NOT INDICATED 12/23/16 01:09 Salicylates < 6.0 mg/dL 12/23/16 00:08 Urine Opiates Screen NEGATIVE (NEGATIVE) 12/23/16 01:09 Ur Oxycodone Screen NEGATIVE (NEGATIVE) 12/23/16 01:09 Urine Methadone Screen NEGATIVE (NEGATIVE) 12/23/16 01:09 Ur Propoxyphene Screen NEGATIVE (NEGATIVE) 12/23/16 01:09 Acetaminophen < 10 ug/mL (10-30) L 12/23/16 00:08 Ur Barbiturates Screen NEGATIVE (NEGATIVE) 12/23/16 01:09 Ur Tricyclics Screen NEGATIVE (NEGATIVE) 12/23/16 01:09 Ur Phencyclidine Scrn NEGATIVE (NEGATIVE) 12/23/16 01:09 Ur Amphetamine Screen NEGATIVE (NEGATIVE) 12/23/16 01:09 U Methamphetamines Scrn NEGATIVE (NEGATIVE) 12/23/16 01:09 U Benzodiazepines Scrn NEGATIVE (NEGATIVE) 12/23/16 01:09 Urine Cocaine Screen NEGATIVE (NEGATIVE) 12/23/16 01:09 U Cannabinoids Screen NEGATIVE (NEGATIVE) 12/23/16 01:09 Ethyl Alcohol < 5.0 mg/dL 12/23/16 00:08
--- NOTE | 2016-12-23 14:19 | Discharge Plan ---
Discharge Plan Disposition: 01 Home, Self Care Condition: Stable Diet: Low Sodium Activity Restrictions: No Restrictions Additional Instructions or Follow Up instructions: Low sodium diet. weigh yourself daily check your blood pressure and take to your primary care provider appointment. Don't take coumadin tonight 12/23, resume coumadin 12/24 and take as directed No Smoking: If you smoke, Please STOP! Call for help. Follow-up with: Laurita Villalpando MD [Primary Care Provider] -
--- NOTE | 2016-12-23 22:53 | DISCHARGE SUMMARY ---
DATE OF ADMISSION: 12/23/2016 DATE OF DISCHARGE: 12/23/2016 REASON FOR ADMISSION: Weakness, confusion, and falls. DISCHARGE DIAGNOSES 1. Syncopal episodes due to hypotension. 2. Hypertension. 3. History of diastolic heart failure and pulmonary hypertension. 4. Atrial fibrillation. 5. Hypokalemia. 6. Acute renal failure. 7. Abnormal urinalysis, urinary tract infection ruled out. BRIEF HISTORY OF PRESENTATION: The patient has multiple medical problems, including atrial fibrillati on on Coumadin, hypertension, congestive heart failure, coronary artery disease, osteoarthritis and h istory of bariatric surgery who presented to the emergency department with the chief complaint of wea kness and confusion. The patient states that over the last month, she has had several episodes of los ing consciousness and not being able to remember periods of time. She reports feeling dizzy and light -headed. HOSPITAL COURSE BY PROBLEMS 1. Syncopal episodes, likely due to hypotension. The patient checks her blood pressure at home and st ates it is never above 110 and she feels symptomatic with standing and some times walking, including dizzy, light-headed, and her daughter states has been falling. I spoke with her clinic and the [facility] primary care provider. The patient is on verapamil CR 180 mg 1/2 tablet twice daily, Lasix 40 mg a day, losartan 50 mg. She was not sure if the patient was taking 1-1/2 tablet or 1/2 tablet twice raymundo ly. Metoprolol 50 b.i.d., spironolactone 50 daily, and oxybutynin. The patient received IV fluids in the emergency department, and her blood pressure is now 122/61 to 140/83 with a heart rate of 81. She was continued on metoprolol 50 twice daily and verapamil 90 mg twice daily. I spoke with the patient and her daughter and recommended that metoprolol 50 mg b.i.d. and verapamil 90 b.i.d. be continued, discontinue spironolactone. The patient does not have systolic heart failure and I see no indication for this. Stop taking losartan and stop taking Lasix. If the patient has high blood pressure greater than systolic of 145 to 150, develops lower extremity swelling or daily weight gain, recommend she re sume Lasix. Counseled the patient to avoid salt in her diet and restrict fluid intake. She was [facility] Diet Coke when I walked in the room and I told her to avoid soda pop. 2. Hypertension. On multiple medications. Presented with syncope. Suspect the patient having symptoma tic low blood pressure. See above. 3. History of congestive heart failure. Cardiac echo in May of 2016 with normal systolic functio n, probable abnormal diastolic function, moderate to severe tricuspid insufficiency with moderate pul monary hypertension. I see no indication for spironolactone, which I recommended the patient disconti nue. 4. Atrial fibrillation. On Coumadin, beta adeline, and calcium channel adeline. Recommended the patie nt continue verapamil and metoprolol. If she has hypotension and needs to discontinue one medication, I would discontinue metoprolol. Continue Coumadin. Her INR is 3.2. I told her to skip this evening's dose and resume as usual tomorrow with followup in the Coumadin clinic. 5. Hypokalemia. This resolved with IV fluid. 6. Acute renal failure. Baseline creatinine 0.8, up to 1.6. This did not correct with IV fluid. The p atient needs close followup and would avoid BARBIE or ARB for the time being. DIAGNOSTIC IMAGING 1. CT head. Impression: Generalized, age-related cortical atrophic changes without evidence of acute intracranial abnormality. 2. Carotid Doppler. Impression: No hemodynamically significant internal carotid arterial stenosis, to rtuous bilateral internal carotid arteries, particularly on the left, antegrade flow, bilateral verte bral arteries. I spoke with the covering provider for the patient and recommended they taper the patient off of some of her antihypertensive therapy. The patient was told to follow up with her primary care provider in 1 week. Return to the hospital if she develops any neurologic symptoms or chest pain. JOB #: [id number] EXT JOB #:[id number]
[2016-12-24] MEDS ORDERED: cefTRIAXone 1 GM in SODIUM CHLORIDE 0.9% MINIBAG 100 ML IV SCH (02:00)
[2016-12-24] MEDS ORDERED: MULTIVITAMIN TABLET PO SCH (08:00)
== END 2016-12-23 14:34 | disposition home or self-care (01) ==
LOC: EDUNIT# → ED 23:55 → MS 12-23 02:10
PROVIDERS: ADMIT Internal Medicine; ATTEND Internal Medicine
DX: R55 Syncope and collapse (principal); I95.2 Hypotension due to drugs; T46.5X5A Adverse effect of other antihypertensive drugs, initial encounter; I48.91 Unspecified atrial fibrillation; E87.6 Hypokalemia; N17.9 Acute kidney failure, unspecified; I11.0 Hypertensive heart disease with heart failure; I50.30 Unspecified diastolic (congestive) heart failure; R82.99 Other abnormal findings in urine; I25.10 Atherosclerotic heart disease of native coronary artery without angina pectoris; I27.2 Other secondary pulmonary hypertension; M19.90 Unspecified osteoarthritis, unspecified site; Y92.009 Unspecified place in unspecified non-institutional (private) residence as the place of occurrence of the external cause; Z79.01 Long term (current) use of anticoagulants; Z79.899 Other long term (current) drug therapy; Z96.612 Presence of left artificial shoulder joint; Z98.84 Bariatric surgery status
CPT/HCPCS: 36415; 70450; 71020; 80053; 80306; 80307; 81001; 83036; 83690; 83735; 84100; 84439; 84443; 84484; 85025; 85610; 93005; 93880; 96361; 96374; 99284; 99285; A9270; G0378; G0480; 80320; 80329; 81003; 87086

== ENCOUNTER 2017-01-03 09:44 | Outpatient (CLI) | payer MEDICARE | END 2017-01-03 09:45 | disposition home or self-care (01) | LOC: LAB.F 09:44 | PROVIDERS: ATTEND Student in an Organized Health Care Education/Training Program | DX: I48.2 Chronic atrial fibrillation (principal); Z79.01 Long term (current) use of anticoagulants | CPT/HCPCS: 85610 ==

== ENCOUNTER 2017-01-17 10:10 | Outpatient (CLI) | payer MEDICARE | END 2017-01-17 10:11 | disposition home or self-care (01) | LOC: LAB.F 10:10 | PROVIDERS: ATTEND Student in an Organized Health Care Education/Training Program | DX: I48.2 Chronic atrial fibrillation (principal) | CPT/HCPCS: 85610 ==

== ENCOUNTER 2017-02-14 09:30 | Outpatient (CLI) | payer MEDICARE | END 2017-02-14 09:31 | disposition home or self-care (01) | LOC: LAB.F 09:30 | PROVIDERS: ATTEND Student in an Organized Health Care Education/Training Program | DX: I48.2 Chronic atrial fibrillation (principal) | CPT/HCPCS: 85610 ==

== ENCOUNTER 2017-03-03 09:33 | Outpatient (CLI) | payer MEDICARE | END 2017-03-03 09:34 | disposition home or self-care (01) | LOC: LAB.F 09:33 | PROVIDERS: ATTEND Student in an Organized Health Care Education/Training Program | DX: I48.2 Chronic atrial fibrillation (principal); Z79.01 Long term (current) use of anticoagulants | CPT/HCPCS: 85610 ==

== ENCOUNTER 2017-03-12 10:14 | Outpatient (CLI) | payer MEDICARE | END 2017-03-12 10:15 | disposition home or self-care (01) | LOC: LAB.F 10:14 | PROVIDERS: ATTEND Student in an Organized Health Care Education/Training Program | DX: I48.2 Chronic atrial fibrillation (principal); Z79.01 Long term (current) use of anticoagulants | CPT/HCPCS: 85610 ==

== ENCOUNTER 2017-03-20 09:42 | Outpatient (CLI) | payer MEDICARE | END 2017-03-20 09:43 | disposition home or self-care (01) | LOC: LAB.F 09:42 | PROVIDERS: ATTEND Student in an Organized Health Care Education/Training Program | DX: I48.2 Chronic atrial fibrillation (principal); Z79.01 Long term (current) use of anticoagulants | CPT/HCPCS: 85610 ==

== ENCOUNTER 2017-03-27 09:42 | Outpatient (CLI) | payer MEDICARE | END 2017-03-27 09:43 | disposition home or self-care (01) | LOC: LAB.F 09:42 | PROVIDERS: ATTEND Student in an Organized Health Care Education/Training Program | DX: I48.2 Chronic atrial fibrillation (principal); Z79.01 Long term (current) use of anticoagulants | CPT/HCPCS: 85610 ==

== ENCOUNTER 2017-04-07 10:43 | Outpatient (CLI) | payer MEDICARE | END 2017-04-07 10:44 | disposition critical access hospital (66) | LOC: EMS 10:43 | PROVIDERS: ATTEND Surgery | DX: R06.02 Shortness of breath (principal); R60.0 Localized edema | CPT/HCPCS: A0425; A0427 ==

== ENCOUNTER 2017-04-21 10:04 | Outpatient (CLI) | payer MEDICARE | END 2017-04-21 10:05 | disposition home or self-care (01) | LOC: LAB.F 10:04 | PROVIDERS: ATTEND Student in an Organized Health Care Education/Training Program | DX: I48.2 Chronic atrial fibrillation (principal); Z79.01 Long term (current) use of anticoagulants | CPT/HCPCS: 85610 ==

== ENCOUNTER 2017-05-05 09:52 | Outpatient (CLI) | payer MEDICARE | END 2017-05-05 09:53 | disposition home or self-care (01) | LOC: LAB.F 09:52 | PROVIDERS: ATTEND Student in an Organized Health Care Education/Training Program | DX: I48.2 Chronic atrial fibrillation (principal); Z79.01 Long term (current) use of anticoagulants | CPT/HCPCS: 85610 ==

== ENCOUNTER 2017-05-19 10:37 | Outpatient (CLI) | payer MEDICARE ==
[2017-05-19 18:38] LABS: CALCIUM 8.8 mg/dL (8.5-10.3); CREATININE 1.3 mg/dL (0.4-1.0)
== END 2017-05-19 10:38 | disposition home or self-care (01) ==
LOC: LAB.F 10:37
PROVIDERS: ATTEND Student in an Organized Health Care Education/Training Program
DX: I48.2 Chronic atrial fibrillation (principal); Z79.01 Long term (current) use of anticoagulants; I50.33 Acute on chronic diastolic (congestive) heart failure; Z51.81 Encounter for therapeutic drug level monitoring
CPT/HCPCS: 80048; 85610

== ENCOUNTER 2017-06-02 10:29 | Outpatient (CLI) | payer MEDICARE | END 2017-06-02 10:30 | disposition home or self-care (01) | LOC: LAB.F 10:29 | PROVIDERS: ATTEND Student in an Organized Health Care Education/Training Program | DX: I48.2 Chronic atrial fibrillation (principal); Z79.01 Long term (current) use of anticoagulants ==

== ENCOUNTER 2017-06-23 07:46 | Outpatient (CLI) | payer MEDICARE | END 2017-06-23 07:47 | disposition critical access hospital (66) | LOC: EMS 07:46 | PROVIDERS: ATTEND Surgery | DX: R05 Cough (principal); R50.9 Fever, unspecified; R52 Pain, unspecified | CPT/HCPCS: A0425; A0429 ==

== ENCOUNTER 2017-06-23 08:14 | Emergency (ER) | payer MEDICARE ==
[2017-06-23] MEDS ORDERED: SODIUM CHLORIDE 0.9% 1,000 ML IV ONE (08:23)
[2017-06-23] MEDS ORDERED: ONDANSETRON ODT 4 MG TABLET TL STA (08:23)
[2017-06-23] MEDS ORDERED: BENZONATATE 100 MG CAPSULE PO STA (08:23)
[2017-06-23] MEDS ORDERED: ACETAMINOPHEN 325 MG TABLET PO STA (08:23)
--- NOTE | 2017-06-23 08:28 | ED Physician Documentation ---
History of Present Illness - Stated complaint Stated Complaint: FLU/PNA SYMPTOMS - Additonal information Additional information: hx from pt 81 female sick for 2 days fever (101.8 per EMS) cough nausea diarrhea myalgias got flu shot no travel this AM not able to take her heart meds 2/2 nausea Review of Systems Constitutional: reports: Fever, Chills, Myalgias Cardiac: reports: Chest pain / pressure (from cough) Respiratory: reports: Cough GI: reports: Abdominal Pain (from cough), Nausea, Diarrhea Skin: denies: Rash Musculoskeletal: denies: Extremity swelling Endocrine: reports: Easy bruising / bleeding (coumadin) Immunocompromised: denies: Immunocompromised PD PAST MEDICAL HISTORY - Past Medical History Cardiovascular: Congestive heart failure, Hypertension, High cholesterol, Coronary artery disease, Atrial fibrillation Respiratory: Pneumonia Neuro: Headache/migraine, Fainting Endocrine/Autoimmune: None GI: Ulcers : Incontinence, Kidney stones HEENT: Chronic hearing loss, Other Musculoskeletal: Osteoarthritis Derm: None - Past Surgical History Past Surgical History: Yes General: Colonoscopy, Other Ortho: Knee replacement, Shoulder arthroplasty, Carpal Tunnel surgery /[employer]ING [employer]: Hysterectomy HEENT: Tonsil/Adenoidectomy - Present Medications Home Medications: Ambulatory Orders Medication Instructions Recorded Confirmed Biotin 5,000 mcg ORAL BID 12/23/16 06/23/17 Calcium Carbonate 600 mg ORAL BID 12/23/16 06/23/17 Cholecalciferol (Vitamin D3) 2,000 mcg ORAL TID 12/23/16 06/23/17 [Vitamin D3] Metoprolol Succinate 50 mg ORAL BID 12/23/16 06/23/17 Multivitamin [Multiple Vitamins] 2 tab ORAL DAILY 12/23/16 06/23/17 Oxybutynin [Ditropan] 5 mg ORAL DAILY 12/23/16 06/23/17 Tramadol HCl 50 mg ORAL BID 12/23/16 06/23/17 Verapamil ER [Calan SA] 90 mg ORAL BID 12/23/16 06/23/17 Warfarin [Coumadin] 5 mg ORAL DAILY 12/23/16 06/23/17 Benzonatate [Tessalon] 100 mg PO TID PRN #20 capsule 06/23/17 Ondansetron Odt [Zofran] 4 mg TL Q6H PRN #10 tablet 06/23/17 - Allergies Allergies/Adverse Reactions: Allergies Allergy/AdvReac Type Severity Reaction Status Date / Time codeine Allergy Unknown Verified 12/23/16 00:04 Penicillins Allergy Unknown Verified 12/23/16 00:04 Sulfa (Sulfonamide Allergy Unknown Verified 12/23/16 00:04 Antibiotics) - Social History Does the pt smoke?: No Smoking Status: Never smoker Does the pt drink ETOH?: No Does the pt have substance abuse?: No - Immunizations Immunizations are current?: Yes - POLST Patient has POLST: No POLST Status: DNR PD ED PE NORMAL - Vitals Vital signs reviewed: Yes - General General: Alert and oriented X 3 - HEENT HEENT: PERRL - Neck Neck: Supple, no meningeal sign - Cardiac Cardiac: No: RRR (tachy) - Respiratory Respiratory: No: Clear bilaterally (ronchi afua upper lobes) - Abdomen Abdomen: Soft, Non tender - Derm Derm: Normal color - Extremities Extremities: Other (minimal afua symm edema s TTP) - Neuro Neuro: Alert and oriented X 3 Results - Vitals Vitals: Vital Signs - 24 hr 06/23/17 06/23/17 06/23/17 08:17 08:46 09:03 Temperature 37.7 C H Heart Rate 92 87 Respiratory 20 23 23 Rate Blood Pressure 166/118 H 169/91 H O2 Saturation 96 88 L 100 06/23/17 06/23/17 09:44 09:53 Temperature 37.4 C Heart Rate 83 Respiratory 23 Rate Blood Pressure 145/77 H O2 Saturation 96 94 Oxygen O2 Source Room air Oxygen Flow Rate 2 - Labs Labs: Laboratory Tests 06/23/17 06/23/17 06/23/17 08:30 08:40 08:40 WBC 4.4 L RBC 3.76 L Hgb 11.2 L Hct 33.8 L MCV 90.0 MCH 29.9 MCHC 33.2 RDW 16.6 H Plt Count 226 MPV 6.9 L Neut # 3.3 Lymph # 0.4 L [place] # 0.6 Eos # 0.0 Baso # 0.1 Absolute Nucleated RBC 0.00 Nucleated RBC % 0.0 PT INR Sodium 137 Potassium 4.2 Chloride 99 L Carbon Dioxide 26 Anion Gap 12.0 BUN 19 Creatinine 0.7 Estimated GFR (MDRD) 81 L Glucose 100 Lactic Acid Calcium 9.4 Influenza A (Rapid) Negative Influenza B (Rapid) Negative Influenza Types A,B Ag - 06/23/17 06/23/17 08:40 08:40 WBC RBC Hgb Hct MCV MCH MCHC RDW Plt Count MPV Neut # Lymph # [place] # Eos # Baso # Absolute Nucleated RBC Nucleated RBC % PT 22.9 H INR 2.1 H Sodium Potassium Chloride Carbon Dioxide Anion Gap BUN Creatinine Estimated GFR (MDRD) Glucose Lactic Acid 0.8 Calcium Influenza A (Rapid) Influenza B (Rapid) Influenza Types A,B Ag PD MEDICAL DECISION MAKING - ED course ED course: neg CXR neg flu labs fine except mild anemia which is not new felt better after IVF zofran and tessalon pt had one sat documented at 88 but rpt room air sats were in the 90s, we "road tested" pt and she was steady with ambulating and not hypoxic her son is coming from [place], she has an attentive next door neighbor, she has a lifeline, and she feels safe going home will dc home given age would like close PMD fup Departure - Departure Disposition: Home, Self Care Clinical Impression: Viral syndrome Condition: Good Instructions: ED Viral Syndrome Follow-Up: Janice Aparicio MD [Primary Care Provider] - Prescriptions: Benzonatate [Tessalon] 100 mg PO TID PRN #20 capsule PRN Reason: to ease cough Ondansetron Odt [Zofran] 4 mg TL Q6H PRN #10 tablet PRN Reason: Nausea / Vomiting Comments: The xray did not show pneumonia. The influenza swab was negative. Your blood work looked fine. So this is likely a viral syndrome That does not make you any less ill than if you have a bacterial infection - but it does mean that antibiotics won't help Since you are feeling better after treatment in the ER, I think it is safe for you to go home with tylenol for fevers, zofran for nausea and vomiting, and tessalon to ease the cough. Please rest and drink plenty of fluids Follow up with your PPMD for a recheck this week unless completely better. And return to the ER if worse - sometimes after a viral illness a secondary infection such as pneumonia develops so if you get worse, please come back
[2017-06-23 08:53] LABS: BASOPHILS # (AUTO) 0.1 10^3/uL (0.0-0.1); BASOPHILS % (AUTO) 1.2 %; EOSINOPHILS % (AUTO) 0.9 %; HGB - HEMOGLOBIN 11.2 g/dL (12.0-16.0); LYMPHOCYTES # (AUTO) 0.4 10^3/uL (1.5-3.5); LYMPHOCYTES % (AUTO) 8.7 %; MEAN CORPUSCULAR HEMOGLOBIN 29.9 pg (27.0-31.0); MEAN CORPUSCULAR HGB CONC 33.2 g/dL (32.0-36.0); MEAN PLATELET VOLUME 6.9 fL (7.9-10.8); MONOCYTES # (AUTO) 0.6 10^3/uL (0.0-1.0); MONOCYTES % (AUTO) 13.7 %; NEUTROPHILS # (AUTO) 3.3 10^3/uL (1.5-6.6); NEUTROPHILS % (AUTO) 75.5 %; PLT - PLATELET COUNT 226 10^3/uL (130-450); RED BLOOD COUNT 3.76 10^6/uL (4.20-5.40); RED CELL DISTRIBUTION WIDTH 16.6 % (12.0-15.0); WHITE BLOOD COUNT 4.4 x10^3/uL (4.8-10.8)
[2017-06-23 08:56] LABS: INR 2.1 (0.8-1.2); PT - PROTHROMBIN TIME 22.9 secs (9.9-12.6)
[2017-06-23 09:02] LABS: CALCIUM 9.4 mg/dL (8.5-10.3); CREATININE 0.7 mg/dL (0.4-1.0)
--- NOTE | 2017-06-23 09:16 | XRAY Report ---
EXAM: CHEST RADIOGRAPHY EXAM DATE: 06/23/2017 08:54 AM. CLINICAL HISTORY: Fever cough upper lobe ronchi. COMPARISON: 12/23/2016. TECHNIQUE: 2 views. FINDINGS: Lungs/Pleura: Similar mild cardiomegaly, mild prominence of the right pulmonary hilum. No focal pulmo nary opacity. No pleural effusion or pneumothorax are evident. Mediastinum: As above. Other: None. IMPRESSION: No acute cardiopulmonary abnormality. [facility] Referring Provider Line: [phone] SITE ID: [id number]
--- NOTE | 2017-06-23 09:16 | XRAY Preliminary Report ---
Exam: XR CHEST 2 VIEW PA/LAT IMPRESSION: No acute cardiopulmonary abnormality. [facility] SITE ID: [id number]
[2017-06-23 09:45] VITALS: BP 145/77
== END 2017-06-23 11:05 | disposition home or self-care (01) ==
LOC: EDUNIT# → ED 08:14
DX: B34.9 Viral infection, unspecified (principal); D64.9 Anemia, unspecified; I25.10 Atherosclerotic heart disease of native coronary artery without angina pectoris; I11.0 Hypertensive heart disease with heart failure; I50.9 Heart failure, unspecified; I48.91 Unspecified atrial fibrillation; Z79.01 Long term (current) use of anticoagulants
CPT/HCPCS: 36415; 80048; 83605; 85025; 85610; 87040; 87275; 87276; 96360; 99283; 99284; A9270; Q0162

== ENCOUNTER 2017-07-15 09:58 | Outpatient (CLI) | payer MEDICARE | END 2017-07-15 09:59 | disposition home or self-care (01) | LOC: LAB.F 09:58 | PROVIDERS: ATTEND Student in an Organized Health Care Education/Training Program | DX: I48.2 Chronic atrial fibrillation (principal); Z79.01 Long term (current) use of anticoagulants | CPT/HCPCS: 85610 ==

== ENCOUNTER 2017-08-12 10:50 | Outpatient (CLI) | payer MEDICARE | END 2017-08-12 10:51 | disposition home or self-care (01) | LOC: LAB.F 10:50 | PROVIDERS: ATTEND Student in an Organized Health Care Education/Training Program | DX: I48.2 Chronic atrial fibrillation (principal); Z79.01 Long term (current) use of anticoagulants | CPT/HCPCS: 85610 ==

== ENCOUNTER 2017-08-27 09:12 | Outpatient (CLI) | payer MEDICARE | END 2017-08-27 09:13 | disposition home or self-care (01) | LOC: LAB.F 09:12 | PROVIDERS: ATTEND Student in an Organized Health Care Education/Training Program | DX: I48.2 Chronic atrial fibrillation (principal); Z79.01 Long term (current) use of anticoagulants | CPT/HCPCS: 85610 ==

== ENCOUNTER 2017-09-18 09:06 | Outpatient (CLI) | payer MEDICARE | END 2017-09-18 09:07 | disposition home or self-care (01) | LOC: LAB.F 09:06 | PROVIDERS: ATTEND Student in an Organized Health Care Education/Training Program | DX: I48.2 Chronic atrial fibrillation (principal); Z79.01 Long term (current) use of anticoagulants | CPT/HCPCS: 85610 ==

== ENCOUNTER 2017-10-09 09:37 | Outpatient (CLI) | payer MEDICARE | END 2017-10-09 09:38 | disposition home or self-care (01) | LOC: LAB.F 09:37 | PROVIDERS: ATTEND Nurse Practitioner Family | DX: I48.2 Chronic atrial fibrillation (principal); Z79.01 Long term (current) use of anticoagulants | CPT/HCPCS: 85610 ==

== ENCOUNTER 2017-11-06 10:14 | Outpatient (CLI) | payer MEDICARE | END 2017-11-06 10:15 | disposition home or self-care (01) | LOC: LAB.F 10:14 | PROVIDERS: ATTEND Nurse Practitioner Family | DX: I48.2 Chronic atrial fibrillation (principal); Z79.01 Long term (current) use of anticoagulants | CPT/HCPCS: 85610 ==

== ENCOUNTER 2017-11-20 10:47 | Outpatient (CLI) | payer MEDICARE | END 2017-11-20 10:48 | disposition home or self-care (01) | LOC: LAB.F 10:47 | PROVIDERS: ATTEND Nurse Practitioner Family | DX: I48.2 Chronic atrial fibrillation (principal); Z79.01 Long term (current) use of anticoagulants | CPT/HCPCS: 85610 ==

== ENCOUNTER 2017-12-15 09:53 | Outpatient (CLI) | payer MEDICARE | END 2017-12-15 09:54 | disposition home or self-care (01) | LOC: LAB.F 09:53 | PROVIDERS: ATTEND Nurse Practitioner Family | DX: I48.2 Chronic atrial fibrillation (principal); Z79.01 Long term (current) use of anticoagulants | CPT/HCPCS: 85610 ==

== ENCOUNTER 2017-12-29 09:29 | Outpatient (CLI) | payer MEDICARE | END 2017-12-29 09:30 | disposition home or self-care (01) | LOC: LAB.F 09:29 | PROVIDERS: ATTEND Nurse Practitioner Family | DX: I48.2 Chronic atrial fibrillation (principal); Z79.01 Long term (current) use of anticoagulants | CPT/HCPCS: 85610 ==

== ENCOUNTER 2018-01-01 14:19 | Outpatient (CLI) | payer MEDICARE ==
[2018-01-01 14:48] LABS: BASOPHILS # (AUTO) 0.1 10^3/uL (0.0-0.1); BASOPHILS % (AUTO) 1.3 %; EOSINOPHILS # (AUTO) 0.1 10^3/uL (0.0-0.7); EOSINOPHILS % (AUTO) 2.3 %; HGB - HEMOGLOBIN 9.4 g/dL (12.0-16.0); LYMPHOCYTES % (AUTO) 22.9 %; MEAN CORPUSCULAR HGB CONC 32.5 g/dL (32.0-36.0); MEAN CORPUSCULAR VOLUME 83.1 fL (81.0-99.0); MEAN PLATELET VOLUME 6.6 fL (7.9-10.8); MONOCYTES # (AUTO) 0.6 10^3/uL (0.0-1.0); MONOCYTES % (AUTO) 14.6 %; NEUTROPHILS # (AUTO) 2.6 10^3/uL (1.5-6.6); NEUTROPHILS % (AUTO) 58.9 %; PLT - PLATELET COUNT 316 10^3/uL (130-450); RED CELL DISTRIBUTION WIDTH 16.1 % (12.0-15.0); WHITE BLOOD COUNT 4.4 x10^3/uL (4.8-10.8)
[2018-01-01 15:01] LABS: ALBUMIN/GLOBULIN RATIO 1.4 (1.0-2.2); BILIRUBIN,TOTAL 0.6 mg/dL (0.2-1.0); CALCIUM 9.2 mg/dL (8.5-10.3); CREATININE 0.9 mg/dL (0.4-1.0); TOTAL PROTEIN 6.9 g/dL (6.7-8.2)
[2018-01-01 15:39] LABS: FREE T4 (FREE THYROXINE) 0.93 ng/dL (0.58-1.64)
== END 2018-01-01 14:20 | disposition home or self-care (01) ==
LOC: LAB 14:19
PROVIDERS: ATTEND Internal Medicine Cardiovascular Disease
DX: I48.91 Unspecified atrial fibrillation (principal)
CPT/HCPCS: 36415; 80053; 83880; 84439; 84443; 85025

== ENCOUNTER 2018-01-12 10:20 | Outpatient (CLI) | payer MEDICARE | END 2018-01-12 10:21 | disposition home or self-care (01) | LOC: LAB.F 10:20 | PROVIDERS: ATTEND Nurse Practitioner Family | DX: I48.2 Chronic atrial fibrillation (principal); Z79.01 Long term (current) use of anticoagulants | CPT/HCPCS: 85610 ==

== ENCOUNTER 2018-01-28 10:14 | Outpatient (CLI) | payer MEDICARE | END 2018-01-28 10:15 | disposition home or self-care (01) | LOC: LAB.F 10:14 | PROVIDERS: ATTEND Student in an Organized Health Care Education/Training Program | DX: I48.2 Chronic atrial fibrillation (principal); Z79.01 Long term (current) use of anticoagulants | CPT/HCPCS: 85610 ==

== ENCOUNTER 2018-02-11 10:05 | Outpatient (CLI) | payer MEDICARE ==
[2018-02-11 17:27] LABS: BASOPHILS # (AUTO) 0.1 10^3/uL (0.0-0.1); BASOPHILS % (AUTO) 2.5 %; MEAN CORPUSCULAR HEMOGLOBIN 25.9 pg (27.0-31.0); MEAN CORPUSCULAR VOLUME 80.8 fL (81.0-99.0); MEAN PLATELET VOLUME 7.2 fL (7.9-10.8); MONOCYTES # (AUTO) 0.6 10^3/uL (0.0-1.0); MONOCYTES % (AUTO) 12.6 %; NEUTROPHILS # (AUTO) 2.8 10^3/uL (1.5-6.6); NEUTROPHILS % (AUTO) 60.9 %; PLT - PLATELET COUNT 312 10^3/uL (130-450); RED BLOOD COUNT 3.87 10^6/uL (4.20-5.40); RED CELL DISTRIBUTION WIDTH 17.7 % (12.0-15.0); WHITE BLOOD COUNT 4.5 x10^3/uL (4.8-10.8)
[2018-02-11 18:03] LABS: % IRON SATURATION 47 % (20-50); IRON 231 ug/dL (28-170); TOTAL IRON BINDING CAPACITY 496 ug/dL (250-450); TRANSFERRIN 354 mg/dL (192-382)
== END 2018-02-11 10:06 | disposition home or self-care (01) ==
LOC: LAB.F 10:05
PROVIDERS: ATTEND Nurse Practitioner Family
DX: I48.2 Chronic atrial fibrillation (principal); Z79.01 Long term (current) use of anticoagulants; D64.9 Anemia, unspecified; R79.0 Abnormal level of blood mineral
CPT/HCPCS: 36415; 82728; 83540; 84466; 85025; 85610

== ENCOUNTER 2018-02-15 08:00 | Outpatient (CLI) | payer MEDICARE | END 2018-02-15 23:59 | LOC: LAB.R 08:00 | PROVIDERS: ATTEND Nurse Practitioner Adult Health | DX: D64.9 Anemia, unspecified (principal) | CPT/HCPCS: 82270 ==

== ENCOUNTER 2018-02-19 10:39 | Outpatient (CLI) | payer MEDICARE ==
[2018-02-19] MEDS ORDERED: REGADENOSON 0.4 MG/5 ML SYRINGE IVP ONE ×2 (11:49→14:29)
--- NOTE | 2018-02-19 14:54 | CARDIAC PROCEDURE NOTE ---
DATE OF SERVICE: 02/19/2018 Physician: MIKE Xiong PCP: Dr. Luevano. DIRECTOR OF WOMEN'S SERVICES: Cornel Collier M.D. PROCEDURE: Pharmacologic cardiac stress test. PROCEDURE SYMPTOMS: Dyspnea on exertion. CARDIAC RISK FACTORS: Age, hypertension. PREVIOUS CARDIAC PROCEDURES: MPS. CLINICAL HISTORY: An 82-year-old female without known coronary artery disease. She has chronic atrial fibrillation with a right bundle branch block, congestive heart failure, and mild LVH. INITIAL RESTING VITAL SIGNS: BP 138/66, heart rate 77, height 59 inches, weight 189 pounds. BMI: 38.0. PROCEDURE AND FINDINGS: The patient identity and date verified. Consent signed. Pharmaceutical check. Pharmacologic stress testing was performed with Lexiscan at a dose of 0.4 mg over 10 seconds. The heart rate increased to 103 beats per minute from the infusion. Blood pressure response was normal during the stress procedure. The patient developed moderate infusion-related symptoms, which included flushing, chest pain, headache, and required caffeine to fully resolve. The resting electrocardiogram showed controlled rate atrial fibrillation with right bundle branch block, and nonspecific ST or T-wave changes. Maximum ST segment depression with stress was less than 0.5 mm and upsloping. There was rare PVC ectopy. FINAL IMPRESSIONS 1. Good quality test. 2. Negative electrocardiogram for ischemia in the setting of vasodilator stress. 3. Nondiagnostic stress test for angina. 4. Occasional to rare premature ventricular contractions. DISCUSSION AND RECOMMENDATIONS: Await myocardial perfusion report. TD: 02/19/2018 13:33 MTDD
--- NOTE | 2018-02-19 16:15 | Nuclear Medicine Report ---
Procedure Date: 02/19/2018 Accession Number: [id number] / [id number] Procedure: NM - Myocardial Perfusion STR/RST CPT Code: FULL RESULT: EXAM: SINGLE-ISOTOPE PHARMACOLOGICAL STRESS TEST WITH REGADENOSON. SINGLE-ISOTOPE AND ONE-DAY REST/STRESS MYOCARDIAL PERFUSION SCANS WITH TOMOGRAPHIC IMAGING, QUANTITATIVE ANALYSIS, WALL MOTION ANALYSIS AND CALCULATION OF EJECTION FRACTION. EXAM DATE: 02/19/2018 12:11 PM. CLINICAL HISTORY: Dyspnea on exertion COMPARISON: None. TECHNIQUE: After the intravenous administration of 9.6 mCi of Tc-99m sestamibi, a rest myocardial perfusion scan was done with tomography. Motion correction was applied when appropriate. After an appropriate delay, pharmacological stress was performed with the infusion of 0.4 mg regadenoson per protocol. According to protocol, 41.9 mCi of Tc-99m sestamibi was injected for stress myocardial perfusion scan. Motion correction was applied when appropriate. Gated tomographic images were obtained for wall motion analysis and computation of left ventricular ejection fraction. FINDINGS: Perfusion images: Left ventricular chamber size is normal at rest and unchanged at stress. No convincing fixed perfusion deficits. There is a moderate size region of mildly to moderately reduced uptake involving the entire inferior/inferolateral wall, similar on stress and rest images without convincing focal wall motion on gated images, may represent diaphragmatic attenuation artifact. No convincing reversible perfusion deficits. Gated images: No convincing focal wall motion abnormality. The left ventricular ejection fraction is estimated at 64% (normal > 50%). IMPRESSION: 1. No convincing reversible perfusion deficits to indicate stress-induced ischemia. 2. Moderate size fixed inferior/inferolateral wall perfusion deficit may represent diaphragmatic attenuation artifact. 3. Left ventricular ejection fraction of 64% (normal > 50%). [facility]
[2018-02-19 16:51] VITALS: BP 138/66
== END 2018-02-19 10:40 | disposition home or self-care (01) ==
LOC: DI 10:39
PROVIDERS: ATTEND Internal Medicine Cardiovascular Disease
DX: R06.00 Dyspnea, unspecified (principal); I48.2 Chronic atrial fibrillation; I11.0 Hypertensive heart disease with heart failure; I50.9 Heart failure, unspecified; I45.10 Unspecified right bundle-branch block
CPT/HCPCS: 78452; 93017; A9500; J2785

== ENCOUNTER 2018-03-09 11:57 | Outpatient (CLI) | payer MEDICARE | END 2018-03-09 11:58 | disposition home or self-care (01) | LOC: LAB.S 11:57 | PROVIDERS: ATTEND Nurse Practitioner Family | DX: I48.2 Chronic atrial fibrillation (principal); Z79.01 Long term (current) use of anticoagulants | CPT/HCPCS: 85610 ==

== ENCOUNTER 2018-04-06 10:37 | Outpatient (CLI) | payer MEDICARE ==
[2018-04-06 17:57] LABS: INR 4.3 (0.8-1.2)
== END 2018-04-06 10:38 | disposition home or self-care (01) ==
LOC: LAB.F 10:37
PROVIDERS: ATTEND Nurse Practitioner Family
DX: I48.2 Chronic atrial fibrillation (principal); Z79.01 Long term (current) use of anticoagulants; Z51.81 Encounter for therapeutic drug level monitoring
CPT/HCPCS: 36415; 85610

== ENCOUNTER → 2018-04-17 | Outpatient (CLI) | payer MEDICARE | LOC: LAB.F 08:00 | PROVIDERS: ATTEND Nurse Practitioner Family | DX: I48.2 Chronic atrial fibrillation (principal); Z79.01 Long term (current) use of anticoagulants | CPT/HCPCS: 85610 ==

== ENCOUNTER 2018-04-29 09:31 | Outpatient (CLI) | payer MEDICARE | END 2018-04-29 09:32 | disposition home or self-care (01) | LOC: LAB.F 09:31 | PROVIDERS: ATTEND Nurse Practitioner Family | DX: I48.2 Chronic atrial fibrillation (principal); Z79.01 Long term (current) use of anticoagulants | CPT/HCPCS: 85610 ==

== ENCOUNTER 2018-05-27 10:15 | Outpatient (CLI) | payer MEDICARE | END 2018-05-27 10:16 | disposition home or self-care (01) | LOC: LAB.F 10:15 | PROVIDERS: ATTEND Family Medicine | DX: I48.2 Chronic atrial fibrillation (principal); Z79.01 Long term (current) use of anticoagulants | CPT/HCPCS: 85610 ==

== ENCOUNTER 2018-06-24 09:17 | Outpatient (CLI) | payer MEDICARE | END 2018-06-24 09:18 | disposition home or self-care (01) | LOC: LAB.F 09:17 | PROVIDERS: ATTEND Family Medicine | DX: I48.2 Chronic atrial fibrillation (principal); Z79.01 Long term (current) use of anticoagulants | CPT/HCPCS: 85610 ==

== ENCOUNTER 2018-07-22 10:17 | Outpatient (CLI) | payer MEDICARE | END 2018-07-22 10:18 | disposition home or self-care (01) | LOC: LAB.F 10:17 | PROVIDERS: ATTEND Family Medicine | DX: I48.2 Chronic atrial fibrillation (principal); Z79.01 Long term (current) use of anticoagulants | CPT/HCPCS: 85610 ==

== ENCOUNTER 2018-08-19 11:12 | Outpatient (CLI) | payer MEDICARE | END 2018-08-19 23:59 | disposition home or self-care (01) | LOC: LAB.F 11:12 | PROVIDERS: ATTEND Family Medicine | DX: I48.2 Chronic atrial fibrillation (principal); Z79.01 Long term (current) use of anticoagulants | CPT/HCPCS: 85610 ==

== ENCOUNTER 2018-09-16 10:33 | Outpatient (CLI) | payer MEDICARE | END 2018-09-16 10:34 | disposition home or self-care (01) | LOC: LAB.F 10:33 | PROVIDERS: ATTEND Family Medicine | DX: I48.2 Chronic atrial fibrillation (principal); Z79.01 Long term (current) use of anticoagulants | CPT/HCPCS: 85610 ==

== ENCOUNTER 2018-10-07 10:12 | Outpatient (CLI) | payer MEDICARE | END 2018-10-07 10:13 | disposition home or self-care (01) | LOC: LAB.F 10:12 | PROVIDERS: ATTEND Family Medicine | DX: I48.2 Chronic atrial fibrillation (principal); Z79.01 Long term (current) use of anticoagulants | CPT/HCPCS: 85610 ==

== ENCOUNTER 2018-11-04 12:34 | Outpatient (CLI) | payer MEDICARE | END 2018-11-04 23:59 | disposition home or self-care (01) | LOC: LAB.F 12:34 | PROVIDERS: ATTEND Family Medicine | DX: I48.2 Chronic atrial fibrillation (principal); Z79.01 Long term (current) use of anticoagulants | CPT/HCPCS: 85610 ==

== ENCOUNTER 2018-12-03 09:12 | Outpatient (CLI) | payer MEDICARE | END 2018-12-03 09:13 | disposition home or self-care (01) | LOC: LAB.F 09:12 | PROVIDERS: ATTEND Family Medicine | DX: I48.2 Chronic atrial fibrillation (principal); Z79.01 Long term (current) use of anticoagulants | CPT/HCPCS: 85610 ==

== ENCOUNTER 2018-12-31 09:34 | Outpatient (CLI) | payer MEDICARE | END 2018-12-31 09:35 | disposition home or self-care (01) | LOC: LAB.S 09:34 | PROVIDERS: ATTEND Family Medicine | DX: I48.2 Chronic atrial fibrillation (principal); Z79.01 Long term (current) use of anticoagulants | CPT/HCPCS: 85610 ==

== ENCOUNTER 2019-01-21 | Outpatient (CLI) | payer MEDICARE | END 2019-01-21 09:40 | disposition home or self-care (01) | DX: I48.2 Chronic atrial fibrillation (principal); Z79.01 Long term (current) use of anticoagulants | CPT/HCPCS: 85610 ==

== ENCOUNTER 2019-02-11 10:19 | Outpatient (CLI) | payer MEDICARE | END 2019-02-11 10:20 | disposition home or self-care (01) | LOC: LAB.S 10:19 | PROVIDERS: ATTEND Family Medicine | DX: I48.2 Chronic atrial fibrillation (principal); Z79.01 Long term (current) use of anticoagulants | CPT/HCPCS: 85610 ==

== ENCOUNTER 2019-03-11 09:33 | Outpatient (CLI) | payer MEDICARE | END 2019-03-11 09:34 | disposition home or self-care (01) | LOC: LAB.S 09:33 | PROVIDERS: ATTEND Family Medicine | DX: I48.2 Chronic atrial fibrillation (principal); Z79.01 Long term (current) use of anticoagulants | CPT/HCPCS: 85610 ==

== ENCOUNTER 2019-04-08 10:00 | Outpatient (CLI) | payer MEDICARE | END 2019-04-08 10:01 | disposition home or self-care (01) | LOC: LAB.S 10:00 | PROVIDERS: ATTEND Family Medicine | DX: I48.20 Chronic atrial fibrillation, unspecified (principal); Z79.01 Long term (current) use of anticoagulants | CPT/HCPCS: 85610 ==

== ENCOUNTER 2019-06-09 10:06 | Outpatient (CLI) | payer MEDICARE | END 2019-06-09 10:07 | disposition home or self-care (01) | LOC: LAB.S 10:06 | PROVIDERS: ATTEND Family Medicine | DX: Z79.01 Long term (current) use of anticoagulants (principal); I48.20 Chronic atrial fibrillation, unspecified | CPT/HCPCS: 85610 ==

== ENCOUNTER 2019-07-14 09:32 | Outpatient (CLI) | payer MEDICARE | END 2019-07-14 09:33 | disposition home or self-care (01) | LOC: LAB.S 09:32 | PROVIDERS: ATTEND Family Medicine | DX: Z79.01 Long term (current) use of anticoagulants (principal); I48.20 Chronic atrial fibrillation, unspecified | CPT/HCPCS: 85610 ==

== ENCOUNTER 2019-08-10 08:40 | Outpatient (CLI) | payer MEDICARE | END 2019-08-10 08:41 | disposition home or self-care (01) | LOC: LAB.S 08:40 | PROVIDERS: ATTEND Family Medicine | DX: I48.20 Chronic atrial fibrillation, unspecified (principal); Z79.01 Long term (current) use of anticoagulants | CPT/HCPCS: 85610 ==

== ENCOUNTER 2019-08-25 09:11 | Outpatient (CLI) | payer MEDICARE | END 2019-08-25 09:12 | disposition home or self-care (01) | LOC: LAB.S 09:11 | PROVIDERS: ATTEND Family Medicine | DX: I48.20 Chronic atrial fibrillation, unspecified (principal); Z79.01 Long term (current) use of anticoagulants | CPT/HCPCS: 85610 ==

== ENCOUNTER 2019-09-15 09:13 | Outpatient (CLI) | payer MEDICARE | END 2019-09-15 09:14 | disposition home or self-care (01) | LOC: LAB.S 09:13 | PROVIDERS: ATTEND Family Medicine | DX: I48.20 Chronic atrial fibrillation, unspecified (principal); Z79.01 Long term (current) use of anticoagulants | CPT/HCPCS: 85610 ==

== ENCOUNTER 2019-10-19 09:53 | Outpatient (CLI) | payer MEDICARE | END 2019-10-19 09:54 | disposition home or self-care (01) | LOC: LAB 09:53 | PROVIDERS: ATTEND Family Medicine | DX: I48.20 Chronic atrial fibrillation, unspecified (principal) | CPT/HCPCS: 85610 ==

== ENCOUNTER 2019-11-16 10:15 | Outpatient (CLI) | payer MEDICARE | END 2019-11-16 10:16 | disposition home or self-care (01) | LOC: LAB 10:15 | PROVIDERS: ATTEND Family Medicine | DX: I48.20 Chronic atrial fibrillation, unspecified (principal) | CPT/HCPCS: 85610 ==

== ENCOUNTER 2019-12-14 09:38 | Outpatient (CLI) | payer MEDICARE | END 2019-12-14 09:39 | disposition home or self-care (01) | LOC: LAB.S 09:38 | PROVIDERS: ATTEND Family Medicine | DX: I48.20 Chronic atrial fibrillation, unspecified (principal) | CPT/HCPCS: 85610 ==

== ENCOUNTER 2020-01-11 09:34 | Outpatient (CLI) | payer MEDICARE | END 2020-01-11 09:35 | disposition home or self-care (01) | LOC: LAB.S 09:34 | PROVIDERS: ATTEND Family Medicine | DX: I48.20 Chronic atrial fibrillation, unspecified (principal) | CPT/HCPCS: 85610 ==

== ENCOUNTER 2020-03-08 10:36 | Outpatient (CLI) | payer MEDICARE | END 2020-03-08 10:37 | disposition home or self-care (01) | LOC: LAB.S 10:36 | PROVIDERS: ATTEND Family Medicine | DX: I48.20 Chronic atrial fibrillation, unspecified (principal) | CPT/HCPCS: 85610 ==

== ENCOUNTER 2020-04-05 09:54 | Outpatient (CLI) | payer MEDICARE | END 2020-04-05 09:55 | disposition home or self-care (01) | LOC: LAB.S 09:54 | PROVIDERS: ATTEND Family Medicine | DX: I48.20 Chronic atrial fibrillation, unspecified (principal) | CPT/HCPCS: 85610 ==

== ENCOUNTER 2020-05-03 10:41 | Outpatient (CLI) | payer MEDICARE | END 2020-05-03 10:42 | disposition home or self-care (01) | LOC: LAB.S 10:41 | PROVIDERS: ATTEND Family Medicine | DX: I48.20 Chronic atrial fibrillation, unspecified (principal) | CPT/HCPCS: 85610 ==

== ENCOUNTER 2020-05-31 10:54 | Outpatient (CLI) | payer MEDICARE | END 2020-05-31 10:55 | disposition home or self-care (01) | LOC: LAB.S 10:54 | PROVIDERS: ATTEND Family Medicine | DX: I48.20 Chronic atrial fibrillation, unspecified (principal) | CPT/HCPCS: 85610 ==

== ENCOUNTER 2020-06-01 12:34 | Outpatient (CLI) | payer MEDICARE ==
--- NOTE | 2020-06-01 13:59 | XRAY Report ---
PROCEDURE: Chest 2 View X-Ray INDICATIONS: COUGH TECHNIQUE: 2 view(s) of the chest. COMPARISON: 06/23/2017 chest radiograph. FINDINGS: Surgical changes and devices: None. Lungs and pleura: Interstitial and airspace opacities in the right perihilar and suprahilar region, n ew from the prior study. Diffusely increased interstitial markings throughout both lungs. Mediastinum: Mediastinal contours are normal. Cardiomegaly. Bones and chest wall: No suspicious bony abnormalities. Soft tissues appear unremarkable. IMPRESSION: Mixed alveolar and airspace opacity in the right perihilar and suprahilar regions with fullness of th e right hilum. Findings are worrisome for malignancy. CT chest with IV contrast is recommended. Cardia mainly with suspected findings of mild to moderate interstitial and perhaps alveolar pulmonary edema. Correlate with BNP level Reviewed by: Tyrell Woodall MD on 06/01/2020 1:58 PM PST Approved by: Tyrell Woodall MD on 06/01/2020 1:58 PM PST Station ID: [id number]
== END 2020-06-01 12:35 | disposition home or self-care (01) ==
LOC: DI.S 12:34
PROVIDERS: ATTEND Family Medicine
DX: R91.8 Other nonspecific abnormal finding of lung field (principal)

== ENCOUNTER 2020-06-28 10:32 | Outpatient (CLI) | payer MEDICARE | END 2020-06-28 23:59 | disposition home or self-care (01) | LOC: LAB.S 10:32 | PROVIDERS: ATTEND Family Medicine | DX: I48.20 Chronic atrial fibrillation, unspecified (principal) | CPT/HCPCS: 85610 ==

== ENCOUNTER 2020-07-26 09:42 | Outpatient (CLI) | payer MEDICARE | END 2020-07-26 09:43 | disposition home or self-care (01) | LOC: LAB.S 09:42 | PROVIDERS: ATTEND Family Medicine | DX: I48.20 Chronic atrial fibrillation, unspecified (principal) | CPT/HCPCS: 85610 ==

== ENCOUNTER 2020-08-17 13:23 | Outpatient (CLI) | payer MEDICARE ==
[2020-08-17 13:51] LABS: CREATININE 0.9 mg/dL (0.4-1.0)
== END 2020-08-17 13:24 | disposition home or self-care (01) ==
LOC: LAB 13:23
PROVIDERS: ATTEND Internal Medicine Cardiovascular Disease
DX: I50.9 Heart failure, unspecified (principal)
CPT/HCPCS: 36415; 80048; 83880

== ENCOUNTER 2020-08-23 09:53 | Outpatient (CLI) | payer MEDICARE | END 2020-08-23 09:54 | disposition home or self-care (01) | LOC: LAB.S 09:53 | PROVIDERS: ATTEND Family Medicine | DX: I48.20 Chronic atrial fibrillation, unspecified (principal) | CPT/HCPCS: 85610 ==

== ENCOUNTER 2020-09-06 09:53 | Outpatient (CLI) | payer MEDICARE | END 2020-09-06 09:54 | disposition home or self-care (01) | LOC: LAB.S 09:53 | PROVIDERS: ATTEND Family Medicine | DX: I48.20 Chronic atrial fibrillation, unspecified (principal) | CPT/HCPCS: 85610 ==

== ENCOUNTER 2020-11-02 09:49 | Outpatient (CLI) | payer MEDICARE | END 2020-11-02 09:50 | disposition home or self-care (01) | LOC: LAB.S 09:49 | PROVIDERS: ATTEND Family Medicine | DX: I48.20 Chronic atrial fibrillation, unspecified (principal) | CPT/HCPCS: 36416; 85610 ==

== ENCOUNTER 2020-11-30 09:43 | Outpatient (CLI) | payer MEDICARE ==
[2020-11-30 14:58] LABS: ALBUMIN 4.7 g/dL (3.2-5.5); BILIRUBIN,TOTAL 0.7 mg/dL (0.2-1.0); CALCIUM 9.5 mg/dL (8.5-10.3); CREATININE 0.9 mg/dL (0.4-1.0); POTASSIUM 4.4 mmol/L (3.5-5.0)
== END 2020-11-30 09:44 | disposition home or self-care (01) ==
LOC: LAB.S 09:43
PROVIDERS: ATTEND Family Medicine
DX: I48.20 Chronic atrial fibrillation, unspecified (principal); I50.9 Heart failure, unspecified; R60.9 Edema, unspecified
CPT/HCPCS: 36415; 36416; 80053; 85610

== ENCOUNTER 2020-12-29 09:30 | Outpatient (CLI) | payer MEDICARE | END 2020-12-29 09:31 | disposition home or self-care (01) | LOC: LAB.S 09:30 | PROVIDERS: ATTEND Family Medicine | DX: I48.20 Chronic atrial fibrillation, unspecified (principal) | CPT/HCPCS: 36416; 85610 ==

== ENCOUNTER 2021-01-26 09:55 | Outpatient (CLI) | payer MEDICARE | END 2021-01-26 09:56 | disposition home or self-care (01) | LOC: LAB.S 09:55 | PROVIDERS: ATTEND Family Medicine | DX: I48.20 Chronic atrial fibrillation, unspecified (principal) | CPT/HCPCS: 36416; 85610 ==

== ENCOUNTER 2021-02-16 09:36 | Outpatient (CLI) | payer MEDICARE | END 2021-02-16 09:37 | disposition home or self-care (01) | LOC: LAB.S 09:36 | PROVIDERS: ATTEND Family Medicine | DX: I48.20 Chronic atrial fibrillation, unspecified (principal) | CPT/HCPCS: 36416; 85610 ==

== ENCOUNTER 2021-03-14 11:20 | Observation (INO) | payer MEDICARE ==
[2021-03-14 12:02] LABS: BASOPHILS # (AUTO) 0.1 10^3/uL (0.0-0.1); BASOPHILS % (AUTO) 1.6 %; EOSINOPHILS # (AUTO) 0.1 10^3/uL (0.0-0.7); EOSINOPHILS % (AUTO) 1.6 %; HCT - HEMATOCRIT 38.4 % (37.0-47.0); HGB - HEMOGLOBIN 12.2 g/dL (12.0-16.0); LYMPHOCYTES # (AUTO) 0.6 10^3/uL (1.5-3.5); LYMPHOCYTES % (AUTO) 13.3 %; MEAN CORPUSCULAR HEMOGLOBIN 33.6 pg (27.0-31.0); MEAN CORPUSCULAR HGB CONC 31.8 g/dL (32.0-36.0); MEAN CORPUSCULAR VOLUME 105.8 fL (81.0-99.0); MEAN PLATELET VOLUME 8.8 fL (7.9-10.8); MONOCYTES # (AUTO) 0.5 10^3/uL (0.0-1.0); MONOCYTES % (AUTO) 11.5 %; NEUTROPHILS # (AUTO) 3.2 10^3/uL (1.5-6.6); NEUTROPHILS % (AUTO) 71.8 %; PLT - PLATELET COUNT 197 10^3/uL (130-450); RED BLOOD COUNT 3.63 10^6/uL (4.20-5.40); RED CELL DISTRIBUTION WIDTH 14.7 % (12.0-15.0); WHITE BLOOD COUNT 4.5 x10^3/uL (4.8-10.8)
--- NOTE | 2021-03-14 12:04 | XRAY Report ---
PROCEDURE: Chest 1 View X-Ray INDICATIONS: Chest pain TECHNIQUE: One view of the chest was acquired. COMPARISON: 06/01/2020 FINDINGS: Surgical changes and devices: None. Lungs and pleura: No pleural effusions or pneumothorax. Right hilar fullness as seen on prior study. Increased interstitial markings. Mediastinum: Mediastinal contours appear normal. Heart size is enlarged. Bones and chest wall: No suspicious bony lesions. Overlying soft tissues appear unremarkable. IMPRESSION: Cardiomegaly with interstitial edema. Fullness in the right hilum as described on the previous chest radiograph report. Findings are suspic ious for malignancy. Please obtain a CT chest with IV contrast as recommended previously. Reviewed by: Tyrell Woodall MD on 03/14/2021 12:02 PM PDT Approved by: Tyrell Woodall MD on 03/14/2021 12:02 PM PDT Station ID: [id number]
[2021-03-14 12:14] LABS: ALBUMIN 4.5 g/dL (3.2-5.5); ALBUMIN/GLOBULIN RATIO 1.7 (1.0-2.2); BILIRUBIN,TOTAL 0.9 mg/dL (0.2-1.0); CALCIUM 9.3 mg/dL (8.5-10.3); CREATININE 1.1 mg/dL (0.4-1.0); POTASSIUM 4.3 mmol/L (3.5-5.0); TOTAL PROTEIN 7.1 g/dL (6.7-8.2)
--- NOTE | 2021-03-14 13:09 | ED Physician Documentation ---
PD HPI DYSPNEA - Stated complaint Stated Complaint: SOA - Chief complaint Chief Complaint: Cardiac - History obtained from History obtained from: Patient - History of Present Illness Timing - onset: How many weeks ago (2-3) Timing - duration: Weeks (2-3) Timing - details: Gradual onset (10 lb weight gain over that time. 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 HEENT: Tonsil/Adenoidectomy - Present Medications Home Medications: Ambulatory Orders Medication Instructions Recorded Confirmed Calcium Carbonate [Calcium] 600 mg ORAL BID 12/23/16 03/14/21 Cholecalciferol (Vitamin D3) 50 mcg ORAL DAILY 12/23/16 03/14/21 [Vitamin D3] Multivitamin [Multiple Vitamins] 1 tab ORAL DAILY 12/23/16 03/14/21 Verapamil ER [Calan SA] 90 mg ORAL BID 12/23/16 06/23/17 Warfarin [Coumadin] 5 mg ORAL TUSA 12/23/16 03/14/21 Ferrous Sulfate 325 mg PO BID 03/14/21 03/14/21 Furosemide [Lasix] 40 mg PO DAILY 03/14/21 03/14/21 Losartan [Cozaar] 50 mg PO DAILY 03/14/21 03/14/21 Metoprolol Tartrate [Lopressor] 50 mg PO BID 03/14/21 03/14/21 Oxybutynin Chloride [Ditropan Xl] 10 mg PO DAILY 03/14/21 03/14/21 Potassium Chloride 20 meq PO DAILY 03/14/21 03/14/21 Warfarin [Coumadin] 7.5 mg PO SUMOWETHFR 03/14/21 03/14/21 traMADol [Ultram] 100 mg PO BID 03/14/21 03/14/21 - Allergies Allergies/Adverse Reactions: Allergies Allergy/AdvReac Type Severity Reaction Status Date / Time codeine Allergy Emesis Verified 03/14/21 17:40 Penicillins Allergy Rash Verified 03/14/21 17:40 Sulfa (Sulfonamide Allergy Emesis Verified 03/14/21 17:40 Antibiotics) - Social History Does the pt smoke?: No Smoking Status: Never smoker Does the pt drink ETOH?: No Does the pt have substance abuse?: No - Immunizations Immunizations are current?: Yes - POLST Patient has POLST: No POLST Status: DNR PD ED PE NORMAL - Vitals Vital signs reviewed: Yes (initial vitals showing 84% sats with walking to ED room.) - General General: Alert and oriented X 3, Well developed/nourished, Other (sats improved with rest and oxygen NC. ) - HEENT HEENT: Pharynx benign - Neck Neck: Supple, no meningeal sign, No adenopathy - Cardiac Cardiac: No murmur. No: RRR (irregular with good rate control c/w chronic atrial fib. ) - Respiratory Respiratory: No: Clear bilaterally (no wheezing. There are fine crackles both sides in lower 1/3 of lung [place]. ) - Abdomen Abdomen: Soft, Non tender, Other (some feeling of fullness and decreased bowel sounds without distension. ) - Female Female : Deferred - Rectal Rectal: Deferred - Back Back: No CVA TTP - Derm Derm: Normal color, Warm and dry - Extremities Extremities: Normal ROM s pain, No calf tenderness / cord, Other (2+ edema both legs/ankles. Feeling of some edema in lower abd pannus as well. NO redness nor warmth. ) - Neuro Neuro: Alert and oriented X 3, No motor deficit, Normal speech Results - Vitals Vitals: Vital Signs - 24 hr 03/14/21 03/14/21 03/14/21 11:27 13:13 13:30 Temperature 36.0 C L Heart Rate 85 66 73 Respiratory 16 26 H 20 Rate Blood Pressure 145/91 H 164/88 H 169/122 H O2 Saturation 100 84 L 97 Oxygen O2 Source Nasal cannula Oxygen Flow Rate 2 - EKG (time done) 11:30 Rate: Rate (enter#) (89) Rhythm: Atrial fibrillation [place]: Normal Intervals: RBBB Ischemia: Normal ST segments. No: ST elevation c/w ischemia, ST depression Compare to prior EKG: Unchanged from prior EKG (from few years ago) - Labs Labs: Laboratory Tests 03/14/21 03/14/21 03/14/21 11:54 11:54 11:54 WBC 4.5 L RBC 3.63 L Hgb 12.2 Hct 38.4 MCV 105.8 H MCH 33.6 H MCHC 31.8 L RDW 14.7 Plt Count 197 MPV 8.8 Neut # (Auto) 3.2 Lymph # (Auto) 0.6 L [place] # (Auto) 0.5 Eos # (Auto) 0.1 Baso # (Auto) 0.1 Absolute Nucleated RBC 0.00 Nucleated RBC % 0.0 PT INR Sodium 139 Potassium 4.3 Chloride 102 Carbon Dioxide 25 Anion Gap 12.0 BUN 39 H Creatinine 1.1 H Estimated GFR (MDRD) 47 L Glucose 89 Calcium 9.3 Magnesium Total Bilirubin 0.9 AST 68 H ALT 57 Alkaline Phosphatase 117 Troponin I High Sens 40.8 H* B-Natriuretic Peptide Total Protein 7.1 Albumin 4.5 Globulin 2.6 Albumin/Globulin Ratio 1.7 Lipase 34 Nasal Adenovirus (PCR) Nasal B. parapertussis DNA (PCR) Nasal Coronavir 229E PCR Nasal Coronavir HKU1 PCR Nasal Coronavir NL63 PCR Nasal Coronavir OC43 PCR Nasal Enterovir/Rhinovir PCR Nasal Influenza B PCR Nasal Influenza A PCR Nasal Parainfluen 1 PCR Nasal Parainfluen 2 PCR Nasal Parainfluen 3 PCR Nasal Parainfluen 4 PCR Nasal RSV (PCR) Nasal B.pertussis DNA PCR Nasal C.pneumoniae (PCR) Pierre Human Metapneumo PCR Nasal M.pneumoniae (PCR) Nasal SARS-CoV-2 (PCR) 03/14/21 03/14/21 03/14/21 11:54 11:54 13:42 WBC RBC Hgb Hct MCV MCH MCHC RDW Plt Count MPV Neut # (Auto) Lymph # (Auto) [place] # (Auto) Eos # (Auto) Baso # (Auto) Absolute Nucleated RBC Nucleated RBC % PT 41.0 H INR 3.7 H Sodium Potassium Chloride Carbon Dioxide Anion Gap BUN Creatinine Estimated GFR (MDRD) Glucose Calcium Magnesium 2.2 Total Bilirubin AST ALT Alkaline Phosphatase Troponin I High Sens B-Natriuretic Peptide 731 H Total Protein Albumin Globulin Albumin/Globulin Ratio Lipase Nasal Adenovirus (PCR) Nasal B. parapertussis DNA (PCR) Nasal Coronavir 229E PCR Nasal Coronavir HKU1 PCR Nasal Coronavir NL63 PCR Nasal Coronavir OC43 PCR Nasal Enterovir/Rhinovir PCR Nasal Influenza B PCR Nasal Influenza A PCR Nasal Parainfluen 1 PCR Nasal Parainfluen 2 PCR Nasal Parainfluen 3 PCR Nasal Parainfluen 4 PCR Nasal RSV (PCR) Nasal B.pertussis DNA PCR Nasal C.pneumoniae (PCR) Pierre Human Metapneumo PCR Nasal M.pneumoniae (PCR) Nasal SARS-CoV-2 (PCR) 03/14/21 13:48 WBC RBC Hgb Hct MCV MCH MCHC RDW Plt Count MPV Neut # (Auto) Lymph # (Auto) [place] # (Auto) Eos # (Auto) Baso # (Auto) Absolute Nucleated RBC Nucleated RBC % PT INR Sodium Potassium Chloride Carbon Dioxide Anion Gap BUN Creatinine Estimated GFR (MDRD) Glucose Calcium Magnesium Total Bilirubin AST ALT Alkaline Phosphatase Troponin I High Sens B-Natriuretic Peptide Total Protein Albumin Globulin Albumin/Globulin Ratio Lipase Nasal Adenovirus (PCR) NOT DETECTED Nasal B. parapertussis DNA (PCR) NOT DETECTED Nasal Coronavir 229E PCR NOT DETECTED Nasal Coronavir HKU1 PCR NOT DETECTED Nasal Coronavir NL63 PCR NOT DETECTED Nasal Coronavir OC43 PCR NOT DETECTED Nasal Enterovir/Rhinovir PCR NOT DETECTED Nasal Influenza B PCR NOT DETECTED Nasal Influenza A PCR NOT DETECTED Nasal Parainfluen 1 PCR NOT DETECTED Nasal Parainfluen 2 PCR NOT DETECTED Nasal Parainfluen 3 PCR NOT DETECTED Nasal Parainfluen 4 PCR NOT DETECTED Nasal RSV (PCR) NOT DETECTED Nasal B.pertussis DNA PCR NOT DETECTED Nasal C.pneumoniae (PCR) NOT DETECTED Pierre Human Metapneumo PCR NOT DETECTED Nasal M.pneumoniae (PCR) NOT DETECTED Nasal SARS-CoV-2 (PCR) NOT DETECTED - Rads (name of study) chest xray Radiology: Prelim report reviewed (some vascular congestion. right perihilar fullness concerning for mass on film. Similar to a year ago with suggestion of CT to eval. No further imaging at that time. ), See rad report chest CT Radiology: Prelim report reviewed (no mass nor infiltrate. The apparent mass on CXR likely shadow confluence and some shadow of the aorta. Normal CT appearance. ), See rad report PD MEDICAL DECISION MAKING - ED course Complexity details: reviewed results, re-evaluated patient (she has urine output of 800 ml after IV dose lasix. ), considered differential (seems c/w CHF from atrial fib. Not hypertensive, and no accessory muscle use. Will give diuretic and did not give nitrates right off. 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
[2021-03-14] MEDS ORDERED: FUROSEMIDE 40 MG/4 ML VIAL IVP STA (13:34)
[2021-03-14] MEDS ORDERED: IOPAMIDOL-300 100 ML VIAL ONE (13:41)
[2021-03-14 13:52] LABS: INR 3.7 (0.8-1.2)
--- NOTE | 2021-03-14 14:36 | CT Report ---
PROCEDURE: CHEST W INDICATIONS: right hilar infiltrate on CXR CONTRAST: IV CONTRAST: Isovue 300 ml: 100 PO CONTRAST: *NO PO CONTRAST TECHNIQUE: After the administration of intravenous contrast, images were acquired from the pulmonary apices to t he posterior costophrenic angles. Multiplanar MIP reformats were acquired. For radiation dose reduc tion, the following was used: automated exposure control, adjustment of mA and/or kV according to pa tient size. COMPARISON: Chest x-ray 03/14/2021 FINDINGS: Image quality: There is limited visualization of the chest secondary to artifact from shoulder arthro plasty. Lungs and pleura: Mild bilateral effusions, right greater than left. Central and peripheral airways a re patent and normal in caliber. Mediastinum: Heart size is markedly enlarged. No pericardial effusion. No mediastinal or hilar niesha opathy by size criteria. The ascending thoracic aorta measures 3.7 cm. Esophagus is normal in caliber . No hiatal hernia. Bones and chest wall: No suspicious bony lesions. No vertebral body compression fractures. No axil silvano or supraclavicular adenopathy by size criteria. The thyroid is normal in size and there are no incidental findings.. Abdomen: Bilateral nonobstructing renal calculi are noted. As noted on the left. Visualized upper ab dominal solid organs appear normal. Upper abdominal bowel loops are normal in caliber. IMPRESSION: 1. No hilar mass. Appearance on x-ray was likely secondary to markedly enlarged cardiac silhouette an d patient positioning. 2. Mild bilateral effusions. CLINICAL RECOMMENDATION STATEMENTS: In patients <35 years with an ITN detected on CT, MRI, or extrathyroidal ultrasound, the Committee re commends further evaluation with dedicated thyroid ultrasound if the nodule is ?1 cm and has no suspi cious imaging features, and if the patient has normal life expectancy. In patients ?35 years with an ITN detected on CT, MRI, or extrathyroidal ultrasound, the Committee re commends further evaluation with dedicated thyroid ultrasound if the nodule is ?1.5 cm and has no neil picious imaging features, and if the patient has normal life expectancy. (ACR, 2014) Reviewed by: Nell Chacon MD on 03/14/2021 2:35 PM PDT Approved by: Nell Chacon MD on 03/14/2021 2:35 PM PDT Station ID: [id number]
[2021-03-14 15:12] LABS: B. PARAPERTUSSIS- RESP PCR PAN NOT DETECTED; B. PERTUSSIS- RESP PCR PANEL NOT DETECTED; C. PNEUMONIAE- RESP PCR PANEL NOT DETECTED; CORONAVIRUS 229E-RESP PCR NOT DETECTED; CORONAVIRUS HKU1-RESP PCR NOT DETECTED; CORONAVIRUS NL63-RESP PCR NOT DETECTED; CORONAVIRUS OC43-RESP PCR NOT DETECTED; HUMAN METAPNEUMOVIRUS NOT DETECTED; INFLUENZA A- RESP PCR PANEL NOT DETECTED; INFLUENZA B - RESP PCR PANEL NOT DETECTED; M. PNEUMONIAE- RESP PCR PANEL NOT DETECTED; PARAINFLUENZA VIRUS 1 NOT DETECTED; PARAINFLUENZA VIRUS 2 NOT DETECTED; PARAINFLUENZA VIRUS 3 NOT DETECTED; PARAINFLUENZA VIRUS 4 NOT DETECTED; RHINOVIRUS/ENTEROVIRUS NOT DETECTED; RSV- RESP PCR PANEL NOT DETECTED; SARS-CoV-2 -RESP PCR PANEL NOT DETECTED
[2021-03-14] MEDS ORDERED: ONDANSETRON 4 MG/2 ML VIAL IVP PRN (15:28)
[2021-03-14] MEDS ORDERED: ACETAMINOPHEN 325 MG TABLET PO PRN (15:28)
[2021-03-14] MEDS ORDERED: SODIUM CHLORIDE FLUSH 0.9% 10 ML SYRINGE IVP PRN (15:28)
[2021-03-14] MEDS ORDERED: IOPAMIDOL-300 100 ML VIAL IVP ONE (15:43)
--- NOTE | 2021-03-14 15:56 | HISTORY & PHYSICAL EXAMINATION ---
Chief Complaint - Chief Complaint Chief Complaint: " I couldn't breath" and "I was going up in my weight" <Stephany Clark - Last Filed: 03/14/21 19:04> History of Present Illness - Admitted From Admitted From:: [facility] <Stephany Clark - Last Filed: 03/14/21 19:04> - History of Present Illness HPI Comment/Other: Pleasant 85 year old female presented to the hospital with dyspnea and increased edema. She reports that her work of breathing was steadily becoming more difficult over the course of 1 month and she noticed that her weight was also increasing despite making a conscious effort to eat healthier and restrict sodium in her diet. She contacted her PCP Janice Aparicio in [place] today after noticing a 10 lb weight gain over 1 month who instructed her to been seen at the hospital. She reports taking her Lasix 40mg as instructed. She denies chest pain, cough, or fevers. She reports intermittent wheezing and orthopenea that has improved since admission. She denies significant changes to lower extremity edema but reported feeling that her "abdomen feels full". Her past medical history is significant for atrial fibrillation in which she take coumadin. She also has a history of congestive heart failure which she takes lasix and a potassium supplement to manage. Her osteoarthrtitis led to bilateral knee replacements and she uses Tramadol for chronic pain control. Lastly she reports a history of bariatric surgery helped her loss 150 lbs. Upon presentation to the emergency department the patient had a bedside oxygen saturation of 84% on room air. She was placed on 2L/min nasal canula and her bedside oxygen saturation improved to 97%. Lasix 80mg IV was also given. Her initial chest x-ray reported cardiomegaly, interstitial edema, and a right hilar mass. A subsequent chest CT with contrast was completed and interpreted as negative for hilar mass with the appearance on the initial x-ray likely due to an enlarged cardiac silhouette. The CT also identified mild bilateral effusions. Upon presentation to the unit, patient reported "feeling better" and denied dyspnea. (Glenna Clarkarina) History - Past Medical History Cardiovascular: reports: Congestive heart failure, Hypertension, High cholesterol, Coronary artery disease, Atrial fibrillation Respiratory: reports: Pneumonia Neuro: reports: Headaches, Migraines Endocrine/Autoimmune: reports: None GI: reports: Ulcers : reports: Incontinence, Kidney stones HEENT: reports: Chronic vision loss, Chronic hearing loss Musculoskeletal: reports: Osteoarthritis Derm: reports: None - Past Surgical History General: reports: Colonoscopy, Other (Bariatric surgery) Ortho: reports: Knee replacement, Shoulder arthroplasty, Carpal Tunnel surgery /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 She is completely independent and uses a cane for walking. She still active in her garden. She has 4 children, one that in 2019 from suicide. Her remaining children live in [place] with her closest son in [place]. She moved to [facility] in 1997 with her to retired. Previous to that the patient lives in [facility]. The patient worked for the [employer] in [employer]. The patient is and has a dog. Patient has never smoked she does not drink alcohol and denies any illicit drug use - Substance History Use: Uses substance without health or social issues: NONE Dependence: Experiences withdrawal or developed tolerances: NONE - POLST Patient has POLST: No POLST Status: DNR <Stephany Clark - Last Filed: 03/14/21 19:04> Meds/Allgy <Stephany Clark - Last Filed: 03/14/21 19:04> <Shien Juarez - Last Filed: 03/14/21 19:06> - Home Medications Home Medications: Ambulatory Orders Medication Instructions Recorded Confirmed Calcium Carbonate [Calcium] 600 mg ORAL BID 12/23/16 03/14/21 Cholecalciferol (Vitamin D3) 50 mcg ORAL DAILY 12/23/16 03/14/21 [Vitamin D3] Multivitamin [Multiple Vitamins] 1 tab ORAL DAILY 12/23/16 03/14/21 Verapamil ER [Calan SA] 90 mg ORAL BID 12/23/16 06/23/17 Warfarin [Coumadin] 5 mg ORAL TUSA 12/23/16 03/14/21 Ferrous Sulfate 325 mg PO BID 03/14/21 03/14/21 Furosemide [Lasix] 40 mg PO DAILY 03/14/21 03/14/21 Losartan [Cozaar] 50 mg PO DAILY 03/14/21 03/14/21 Metoprolol Tartrate [Lopressor] 50 mg PO BID 03/14/21 03/14/21 Oxybutynin Chloride [Ditropan Xl] 10 mg PO DAILY 03/14/21 03/14/21 Potassium Chloride 20 meq PO DAILY 03/14/21 03/14/21 Warfarin [Coumadin] 7.5 mg PO SUMOWETHFR 03/14/21 03/14/21 traMADol [Ultram] 100 mg PO BID 03/14/21 03/14/21 - Allergies Allergies/Adverse Reactions: Allergies Allergy/AdvReac Type Severity Reaction Status Date / Time codeine Allergy Emesis Verified 03/14/21 17:40 Penicillins Allergy Rash Verified 03/14/21 17:40 Sulfa (Sulfonamide Allergy Emesis Verified 03/14/21 17:40 Antibiotics) Review of Systems - Constitutional Constitutional: reports: Fatigue, Weight gain (10 lbs over 1 month). denies: Fever, Chills, Weakness, Poor appetite - Eyes Eyes: reports: Vision loss, Corrective lenses. denies: Blurred vision - Ears, Nose & Throat Ears, Nose & Throat: reports: Hearing loss, Hearing aids, Nasal discharge (related to allergies). denies: Vertigo, Sore throat - Cardiovascular Cariovascular: reports: Irregular heart rate, Edema, Exertional dyspnea. chelo es: Palpitations, Chest pain - Respiratory Respiratory: reports: Wheezing, SOB with exertion. denies: Cough, Sputum production, Pleuritic pain - Gastrointestinal Gastrointestinal: reports: Abdominal distention. denies: Abdominal pain, Constipation, Diarrhea, Change in bowel habits, Nausea, Vomiting - Genitourinary Genitourinary: reports: Frequency, Incontinence - Musculoskeletal Musculoskeletal: reports: Stiffness - Integumentary Integumentary: denies: Rash - Neurological Neurological: denies: Focal weakness, Headache, Numbness, Abnormal gait - Psychiatric Psychiatric: denies: Depression, Anxiety - Hematologic/Lymphatic Hematologic/Lymphatic: reports: Bruising <Stephany Clark - Last Filed: 03/14/21 19:04> <Eduardo,Stephany - Last Filed: 03/14/21 19:04> Prior Level of Functionality: Living home alone, independent with activities of daily living. Uses cane for stability during ambulation. (Stephany Clark) Exam - Vital Signs Reviewed Vital Signs: Yes - Physical Exam General Appearance: positive: No acute distress, Alert Eyes Bilateral: positive: Normal inspection, PERRL, EOMI Respiratory: positive: Chest non-tender, No respiratory distress, Other (Slight decreased breath sounds to left lower base.) Cardiovascular: positive: No murmur, Irregularly irregular, JVD present Peripheral Pulses: positive: 2+ Abdomen: positive: Non-tender, Nml bowel sounds, No distention Back: positive: Nml inspection Skin: positive: Color nml, Warm, Dry, Other (Scattered areas of ecchymosis to bilateral arms) Extremities: positive: Non-tender, Full ROM, Nml appearance, Pedal edema, Other (1+ pitting edema to bilateral feet to mid-calf.) Neurologic/Psychiatric: positive: Oriented x3, Sensation nml, Mood/affect nml <Stephany Clark - Last Filed: 03/14/21 19:04> - Vital Signs Vital Signs: Vital Signs x48h Temp Pulse Pulse Resp BP BP Pulse Ox 03/14/21 16:59 36.3 C L 63 16 150/82 H 100 03/14/21 13:30 73 20 169/122 H 97 03/14/21 13:13 66 26 H 164/88 H 84 L 03/14/21 11:27 36.0 C L 85 16 145/91 H 100 Conclusion/Plan - Problem List (1) Acute exacerbation of CHF (congestive heart failure) Conclusion/Plan: Patient presented to ED to with c/c of progressive dyspnea and weight gain over 1 month. She has a history of CHF which she manages with lasix 40mg twice daily and follows a low sodium diet. She reported a slight increased in her bilateral lower extremity edema but reported her "abdomen feeling full". Initial chest x- ray showed cardiomegaly with interstitial edema. A subsequent chest CT with contrast showed mild bilateral effusions. She was given 80 mg of Lasix in the ED. BNP was elevated at 731. Initial troponin was 40.8. Elevated BNP and troponin most likely due to CHF exacerbation. Plan: Continue to diuresis patient with lasix 40mg IVP twice daily. Resume low sodium cardiac diet. Daily weights to monitor effectiveness of treatment. Repeat troponin to monitor trend. (2) Acute respiratory failure with hypoxia Conclusion/Plan: Patient presented to the ED with dyspnea, edema, and weight gain. She has a history of CHF. Her initial chest x-ray showed interstitial edema and cardiomeglay. A subsequent Chest CT with contrast was reported as mild bilateral effusions. Upon presentation to the ED she was found to be hypoxic with bedside oxygen saturation 84% on room air. She was placed on nasal cannula with 2L/min of oxygen therapy and her bedside oxygenation saturation improved to 97. She remains on 2L/min nasal cannula and denies dyspnea. Hypoxia is likely secondary to CHF exacerbation. Plan: Continue to monitor bedside oxygenation saturation and titrate oxygen therapy as needed. Encourage coughing and deep breathing exercises to prevent atalectasis from decreased activity. (3) PUSHPA (acute kidney injury) Conclusion/Plan: Initial labs showed elevated Creatinine 1.1 and low GFR 47. Previous hospitalization from 06/23/2017 Creatinine within range 0.7 with low GFR 81. Most likely due to CHF exacerbation. Plan: Continue to monitor kidney function with daily BMPs. (4) Atrial fibrillation, chronic Conclusion/Plan: Patient has a history of atrial fibrillation and is on Coumadin therapy. INR on admission is 3.7. Her cardiac rhythm is currently controlled A-fib with a rate of 60-80s. She also takes metoprolol 50 mg twice daily at home. Plan: Continue to monitor INR and dose Coumadin therapy accordingly. Continue to monitor cardiac rhythm with remote telemetry. Continue with home Metoprolol dose for rate control. - Lab Results Lab results reviewed: Yes Fish Bones: 03/14/21 11:54 03/14/21 11:54 - Diagnostic Imaging Results Diagnostic Imaging Results: positive: Final report reviewed <Stephany Clark - Last Filed: 03/14/21 19:04> - Lab Results Fish Bones: 03/14/21 11:54 03/14/21 11:54 <Shine Juarez - Last Filed: 03/14/21 19:06>
[2021-03-14] MEDS ORDERED: WARFARIN 5 MG TABLET PO SCH (19:00)
[2021-03-14] MEDS: traMADol 50 MG TABLET PO SCH (20:29)
[2021-03-14] MEDS: METOPROLOL TARTRATE 50 MG TABLET PO SCH (20:29)
[2021-03-14] MEDS: SODIUM CHLORIDE FLUSH 0.9% 10 ML SYRINGE IVP SCH (20:29)
[2021-03-15] MEDS: SODIUM CHLORIDE FLUSH 0.9% 10 ML SYRINGE IVP SCH ×2 (00:24→08:28)
[2021-03-15] MEDS: FUROSEMIDE 40 MG/4 ML VIAL IVP SCH ×2 (05:18→11:54)
[2021-03-15 06:17] LABS: BASOPHILS # (AUTO) 0.1 10^3/uL (0.0-0.1); EOSINOPHILS # (AUTO) 0.1 10^3/uL (0.0-0.7); EOSINOPHILS % (AUTO) 3.5 %; HCT - HEMATOCRIT 39.3 % (37.0-47.0); HGB - HEMOGLOBIN 12.5 g/dL (12.0-16.0); LYMPHOCYTES # (AUTO) 0.7 10^3/uL (1.5-3.5); LYMPHOCYTES % (AUTO) 19.4 %; MEAN CORPUSCULAR HEMOGLOBIN 33.3 pg (27.0-31.0); MEAN CORPUSCULAR HGB CONC 31.8 g/dL (32.0-36.0); MEAN CORPUSCULAR VOLUME 104.8 fL (81.0-99.0); MEAN PLATELET VOLUME 9.3 fL (7.9-10.8); MONOCYTES # (AUTO) 0.6 10^3/uL (0.0-1.0); MONOCYTES % (AUTO) 15.9 %; NEUTROPHILS % (AUTO) 58.9 %; PLT - PLATELET COUNT 213 10^3/uL (130-450); RED BLOOD COUNT 3.75 10^6/uL (4.20-5.40); RED CELL DISTRIBUTION WIDTH 14.6 % (12.0-15.0); WHITE BLOOD COUNT 3.5 x10^3/uL (4.8-10.8)
[2021-03-15 06:24] LABS: CALCIUM 9.2 mg/dL (8.5-10.3); CREATININE 0.9 mg/dL (0.4-1.0)
[2021-03-15] MEDS ORDERED: FERROUS GLUCONATE 324 MG TABLET PO SCH (08:00)
[2021-03-15] MEDS ORDERED: MULTIVITAMIN TABLET PO SCH (08:00)
[2021-03-15] MEDS: traMADol 50 MG TABLET PO SCH (08:26)
[2021-03-15] MEDS: METOPROLOL TARTRATE 50 MG TABLET PO SCH (08:27)
[2021-03-15] MEDS ORDERED: POTASSIUM CHLORIDE 10 MEQ CAPSULE PO SCH (09:00)
[2021-03-15] MEDS ORDERED: LOSARTAN 50 MG TABLET PO SCH (09:00)
[2021-03-15] MEDS ORDERED: SOLIFENACIN SUCCINATE 10 MG TABLET PO SCH (09:00)
[2021-03-15] MEDS ORDERED: CHOLECALCIFEROL 25 MCG TABLET PO SCH (09:00)
[2021-03-15] MEDS ORDERED: LORATADINE 10 MG TABLET PO SCH (09:00)
[2021-03-15] MEDS ORDERED: CALCIUM CARB (OYSTER SHELL) 500 MG TABLET PO SCH (09:00)
[2021-03-15 10:41] LABS: FOLATE 8.82 ng/mL (5.90 - >24.8)
--- NOTE | 2021-03-15 11:07 | DISCHARGE SUMMARY ---
Discharge Summary Admit Date: 03/14/21 Discharge Date: 03/15/21 Discharging Provider: Shine Juarez Code Status: Attempt Resuscitation Condition at Discharge: Stable Discharge Disposition: 01 Home, Self Care - DIAGNOSES Admission Diagnoses: Acute Exacerbation of CHF Acute respiratory failure with hypoxia Acute kidney injury Atrial fibrillation, chronic Discharge Diagnoses with Status of Each Condition: Acute Exacerbation of CHF: Improved/resolved. Patient breathing comfortably on room air. Acute respiratory failure with hypoxia: Improved/resolved. Patient breathing comfortably on room air. Acute kidney injury:. Improved/resolved Atrial fibrillation, chronic: Stable - HPI History of Present Illness: HPI: Pleasant 85 year old female presented to the hospital with dyspnea and increased edema. She reports that her work of breathing was steadily becoming more difficult over the course of 1 month and she noticed that her weight was also increasing despite making a conscious effort to eat healthier and restrict sodium in her diet. She contacted her PCP Janice Aparicio in [place] today after noticing a 10 lb weight gain over 1 month who instructed her to been seen at the hospital. She reports taking her Lasix 40mg as instructed. She denies chest pain, cough, or fevers. She reports intermittent wheezing and orthopenea that has improved since admission. She denies significant changes to lower extremity edema but reported feeling that her "abdomen feels full". Her past medical history is significant for atrial fibrillation in which she take coumadin. She also has a history of congestive heart failure which she takes lasix and a potassium supplement to manage. Her osteoarthrtitis led to bilateral knee replacements and she uses Tramadol for chronic pain control. Lastly she reports a history of bariatric surgery helped her loss 150 lbs. Upon presentation to the emergency department the patient had a bedside oxygen saturation of 84% on room air. She was placed on 2L/min nasal canula and her bedside oxygen saturation improved to 97%. Lasix 80mg IV was also given. Her initial chest x-ray reported cardiomegaly, interstitial edema, and a right hilar mass. A subsequent chest CT with contrast was completed and interpreted as negative for hilar mass with the appearance on the initial x-ray likely due to an enlarged cardiac silhouette. The CT also identified mild bilateral effusions. Upon presentation to the unit, patient reported "feeling better" and denied dyspnea. - HOSPITAL COURSE Hospital Course: Patient was admitted to the MedSurg floor and Lasix 40 mg IV twice daily was ordered. She received 2 doses by the time of discharge. By the time she got to her room she was feeling better and came off supplemental oxygen shortly afterwards. She had a desaturation study done on 03/15/2021 and was deemed not in need of supplemental oxygen upon discharge because her oxygen saturation maintained at least 90% with ambulation on room air. 2D echocardiogram done on 03/15/2021 showed left ventricular size was normal. T here was moderate concentric left ventricular hypertrophy. Overall left ventricular systolic function was mildly impaired with an ejection fraction of 45 to 50%. Diastolic G and subtle regional wall motion abnormalities with difficult to assess due to the presence of arrhythmia. The left ventricular septal wall was flattened in diastole and systole which was consistent with right ventricular volume and pressure overload. Right ventricle: Severe right ventricular enlargement. The right ventricular systolic function is moderately impaired. Left atrium: Severe increase in left atrial volume index. Right atrium: Severe right atrial enlargement. The aortic valve is trileaflet there is moderate aortic valve sclerosis but no aortic stenosis Secondary mitral regurgitation noted. Severe tricuspid regurgitation is present. The RVSP at rest is 55 mmHg. Moderate abnormal right heart pressures. There is no pericardial effusion. There is no pleural effusion. There is no mass or thrombus. The patient was discharged home in stable condition. She was instructed to take Lasix 40 mg p.o. twice daily x5 days. She is to follow-up with her primary care physician within 1 week. She is to call and schedule a follow-up appointment with her head packager Dr. Collier. - ALLERGIES Allergies/Adverse Reactions: Allergies Allergy/AdvReac Type Severity Reaction Status Date / Time codeine Allergy Emesis Verified 03/14/21 17:40 Penicillins Allergy Rash Verified 03/14/21 17:40 Sulfa (Sulfonamide Allergy Emesis Verified 03/14/21 17:40 Antibiotics) - MEDICATIONS Home Medications: Ambulatory Orders Medication Instructions Recorded Confirmed Calcium Carbonate [Calcium] 600 mg ORAL BID 12/23/16 03/14/21 Cholecalciferol (Vitamin D3) 50 mcg ORAL DAILY 12/23/16 03/14/21 [Vitamin D3] Multivitamin [Multiple Vitamins] 1 tab ORAL DAILY 12/23/16 03/14/21 Verapamil ER [Calan SA] 90 mg ORAL BID 12/23/16 06/23/17 Warfarin [Coumadin] 5 mg ORAL TUSA 12/23/16 03/14/21 Ferrous Sulfate 325 mg PO BID 03/14/21 03/14/21 Furosemide [Lasix] 40 mg PO DAILY 03/14/21 03/14/21 Losartan [Cozaar] 50 mg PO DAILY 03/14/21 03/14/21 Metoprolol Tartrate [Lopressor] 50 mg PO BID 03/14/21 03/14/21 Oxybutynin Chloride [Ditropan Xl] 10 mg PO DAILY 03/14/21 03/14/21 Potassium Chloride 20 meq PO DAILY 03/14/21 03/14/21 Warfarin [Coumadin] 7.5 mg PO SUMOWETHFR 03/14/21 03/14/21 traMADol [Ultram] 100 mg PO BID 03/14/21 03/14/21 - PHYSICAL EXAM AT DISCHARGE General Appearance: positive: No acute distress, Alert Eyes Bilateral: positive: PERRL, EOMI ENT: positive: No signs of dehydration Neck: positive: Thyroid nml, Trachea midline Respiratory: positive: Chest non-tender, No respiratory distress, Breath sounds nml. negative: Wheezes, Rales, Rhonchi Cardiovascular: positive: Irregularly irregular, JVD present (improved from admission) Abdomen: positive: Non-tender, No organomegaly, Nml bowel sounds, No distention. negative: Guarding, Rebound Back: positive: Nml inspection Skin: positive: No rash, Warm, Dry Extremities: positive: Non-tender, Full ROM, Nml appearance, No pedal edema Neurologic/Psychiatric: positive: Oriented x3, Mood/affect nml - LABS Result Diagrams: 03/15/21 05:26 03/15/21 05:26 - TIME SPENT Time Spent in Discharge (Minutes): 20
--- NOTE | 2021-03-15 11:18 | Discharge Plan ---
Discharge Plan Problem Reviewed?: Yes Disposition: Home, Self Care Condition: Stable Diet: Cardiac Activity Restrictions: Activity as Tolerated Health Concerns: You were admitted on 03/14/2021 with difficulty in breathing and hypoxia. This was believed to be secondary to exacerbation of CHF. You were treated with IV Lasix on the day of admission and the following day. Your breathing improved significantly. You had oxygen study done on the day of discharge and you were determined not to be in need of oxygen upon discharge. You had a 2D echocardiogram of your heart done on 03/15/2021 which showed your ejection fraction of 45-50. This is a mild impairment in its function. You are being discharged with instructions to take Lasix 40 mg twice a day by mouth for the next 5 days. You are to follow-up with your primary care physician within 7 days. You are also to follow-up with your tar distillation supervisor Dr. Collier. The above was explained to you, you expressed understanding and are agreeable with the plan. No Smoking: If you smoke, Please STOP! Call for help. Follow-up with: DINA COLLAZO MD [Primary Care Provider] -
[2021-03-15 11:30] VITALS: BP 130/65
[2021-03-15] MEDS ORDERED: TRIAMCIN/MOXIFLOX OPHTHALMIC 0.6 ML VIAL IO ONE (13:42)
[2021-03-17] MEDS ORDERED: WARFARIN 5 MG TABLET PO SCH (18:19)
== END 2021-03-15 13:45 | disposition home or self-care (01) ==
LOC: ED 11:20 → MS2 15:28
PROVIDERS: ADMIT Internal Medicine; ATTEND Internal Medicine
DX: I11.0 Hypertensive heart disease with heart failure (principal); I50.23 Acute on chronic systolic (congestive) heart failure; J96.01 Acute respiratory failure with hypoxia; I48.20 Chronic atrial fibrillation, unspecified; N17.9 Acute kidney failure, unspecified; I08.3 Combined rheumatic disorders of mitral, aortic and tricuspid valves; E78.5 Hyperlipidemia, unspecified; I25.10 Atherosclerotic heart disease of native coronary artery without angina pectoris; G89.29 Other chronic pain; M19.90 Unspecified osteoarthritis, unspecified site; R32 Unspecified urinary incontinence; R35.0 Frequency of micturition; H54.7 Unspecified visual loss; H91.90 Unspecified hearing loss, unspecified ear; Z66 Do not resuscitate; Z20.822 Contact with and (suspected) exposure to COVID-19; Z79.899 Other long term (current) drug therapy; Z79.01 Long term (current) use of anticoagulants; Z98.84 Bariatric surgery status; Z96.653 Presence of artificial knee joint, bilateral; Z87.01 Personal history of pneumonia (recurrent)
CPT/HCPCS: 36415; 71045; 71260; 80048; 80053; 82607; 82746; 83690; 83735; 83880; 84484; 85025; 85610; 87631; 93005; 93306; 94761; 96374; 96376; 99281; 99285; A9270; G0378; Q9967; 0202U

== ENCOUNTER 2021-03-20 10:23 | Outpatient (CLI) | payer MEDICARE | END 2021-03-20 10:24 | disposition home or self-care (01) | LOC: LAB.S 10:23 | PROVIDERS: ATTEND Family Medicine | DX: I48.20 Chronic atrial fibrillation, unspecified (principal) | CPT/HCPCS: 36416; 85610 ==

== ENCOUNTER 2021-04-03 09:31 | Outpatient (CLI) | payer MEDICARE | END 2021-04-03 09:32 | disposition home or self-care (01) | LOC: LAB.S 09:31 | PROVIDERS: ATTEND Family Medicine | DX: I48.20 Chronic atrial fibrillation, unspecified (principal) | CPT/HCPCS: 36416; 85610 ==

== ENCOUNTER 2021-04-17 10:21 | Outpatient (CLI) | payer MEDICARE | END 2021-04-17 10:22 | disposition home or self-care (01) | LOC: LAB.S 10:21 | PROVIDERS: ATTEND Family Medicine | DX: I48.20 Chronic atrial fibrillation, unspecified (principal) | CPT/HCPCS: 36416; 85610 ==

== ENCOUNTER 2021-05-01 11:18 | Outpatient (CLI) | payer MEDICARE | END 2021-05-01 11:19 | disposition home or self-care (01) | LOC: LAB.S 11:18 | PROVIDERS: ATTEND Family Medicine | DX: I48.20 Chronic atrial fibrillation, unspecified (principal) | CPT/HCPCS: 36416; 85610 ==

== ENCOUNTER 2021-05-22 10:48 | Outpatient (CLI) | payer MEDICARE | END 2021-05-22 10:49 | disposition home or self-care (01) | LOC: LAB.S 10:48 | PROVIDERS: ATTEND Family Medicine | DX: I48.20 Chronic atrial fibrillation, unspecified (principal) | CPT/HCPCS: 36416; 85610 ==

== ENCOUNTER 2021-05-31 10:32 | Outpatient (CLI) | payer MEDICARE ==
[2021-05-31 10:50] LABS: BASOPHILS # (AUTO) 0.1 10^3/uL (0.0-0.1); BASOPHILS % (AUTO) 1.7 %; EOSINOPHILS # (AUTO) 0.1 10^3/uL (0.0-0.7); EOSINOPHILS % (AUTO) 2.8 %; HCT - HEMATOCRIT 39.6 % (37.0-47.0); LYMPHOCYTES # (AUTO) 0.8 10^3/uL (1.5-3.5); LYMPHOCYTES % (AUTO) 22.3 %; MEAN CORPUSCULAR HEMOGLOBIN 33.9 pg (27.0-31.0); MEAN CORPUSCULAR HGB CONC 32.8 g/dL (32.0-36.0); MEAN CORPUSCULAR VOLUME 103.1 fL (81.0-99.0); MEAN PLATELET VOLUME 9.1 fL (7.9-10.8); MONOCYTES # (AUTO) 0.5 10^3/uL (0.0-1.0); MONOCYTES % (AUTO) 14.9 %; NEUTROPHILS # (AUTO) 2.1 10^3/uL (1.5-6.6); PLT - PLATELET COUNT 191 10^3/uL (130-450); RED BLOOD COUNT 3.84 10^6/uL (4.20-5.40); RED CELL DISTRIBUTION WIDTH 13.2 % (12.0-15.0); WHITE BLOOD COUNT 3.6 x10^3/uL (4.8-10.8)
[2021-05-31 11:10] LABS: ALBUMIN 4.5 g/dL (3.2-5.5); ALBUMIN/GLOBULIN RATIO 1.6 (1.0-2.2); BILIRUBIN,TOTAL 0.9 mg/dL (0.2-1.0); CALCIUM 9.9 mg/dL (8.5-10.3); CREATININE 1.3 mg/dL (0.4-1.0); POTASSIUM 4.2 mmol/L (3.5-5.0); TOTAL PROTEIN 7.3 g/dL (6.7-8.2)
[2021-05-31 11:27] LABS: THYROID STIMULATING HORMONE 2.05 uIU/mL (0.34-5.60)
[2021-05-31 11:29] LABS: FREE T4 (FREE THYROXINE) 0.96 ng/dL (0.58-1.64)
== END 2021-05-31 10:33 | disposition home or self-care (01) ==
LOC: LAB 10:32
PROVIDERS: ATTEND Internal Medicine Cardiovascular Disease
DX: I50.9 Heart failure, unspecified (principal)
CPT/HCPCS: 36415; 80053; 83880; 84439; 84443; 85025

== ENCOUNTER 2021-06-28 10:50 | Outpatient (CLI) | payer MEDICARE | END 2021-06-28 10:51 | disposition home or self-care (01) | LOC: LAB.S 10:50 | PROVIDERS: ATTEND Family Medicine | DX: I48.20 Chronic atrial fibrillation, unspecified (principal) | CPT/HCPCS: 36416; 85610 ==

== ENCOUNTER 2021-07-17 12:21 | Outpatient (CLI) | payer MEDICARE ==
[2021-07-17] MEDS ORDERED: REGADENOSON 0.4 MG/5 ML SYRINGE IVP ONE (12:50)
--- NOTE | 2021-07-17 14:27 | CARDIAC PROCEDURE NOTE ---
Stress Test Report Service Date: 07/17/21 Service Time: 12:30 Ordering Provider: Cornel Collier MD Indication for Test: Assess for inducible ischemia, in setting of recent heart failure exacerbation and intermittent chest pressure. Significant Medical History: -Magda has a known history of chronic systolic heart failure dating back at least a few years, as well as atrial fibrillation. In 2018 she had a Lexiscan stress myocardial perfusion imaging study that was negative for ischemia. However she presented in late February to this hospital with concern for subacute fluid retention estimated at over 30 pounds accumulating over several weeks, for which she was admitted for diuresis and optimization of her medical regimen. An echocardiogram during that admission showed mild global LV hypokinesis with ejection fraction 45 to 50%, severe right ventricular enlargement and impaired function, dilated atria, estimated RV/PA systolic pressure 55 mmHg and CVP greater than 15 mmHg. Today's study was ordered in follow-up of that admission. -She tells me that since discharge she has felt much better than did prior to the hospitalization and the achieved benefit has been maintained, with weight- based diuretic dosing. She is able to lie flat without nocturnal dyspnea. She does admit to intermittent episodes of chest pressure sometimes associated with diaphoresis, that is unpredictable in onset. However she believes the last significant episode was prior to her hospitalization. She lives alone in a 1 story home and is able to succeed with all the basic activities of daily living, though she tells me that at times she moves slowly and it might take her a couple of days to fully unload her car after a big shopping trip, out perishables for the first day and bringing in all the dry goods over the next 1- 2 days. She would feel well enough to pursue some gardening, which is her favorite activity, though has not done this since the hospitalization, due to the cold weather. Cardiac Risk Factors: Her chart indicates a history of coronary artery disease (details not available); she has history of hypertension and her mother had CHF (details unknown). She denies history of diabetes, tobacco smoking and hyperlipidemia. Type of Stress Test: Pharmacologic Stress Test with MPI Pharmacologic Agent: Lexiscan Procedure: -Pharmacologic Stress Test- After signing informed consent, the patient underwent rest SPECT imaging and then performed a walking Lexiscan pharmacologic stress test. After obtaining resting vital signs and EKG (resting), the patient walked for 2 minutes (without elevation) at 0.8 mph ("baseline") followed by injection of Lexiscan and high dose 99Tc-Myoview with an additional 2 minutes of walking ("peak" reassesment) followed by monitoring for an additional 8 minutes ("recovery"). The test was terminated due to completing the protocol. Resting heart rate (HR): 70 Baseline HR: 100 Peak HR: 96 Abnormal HR response. Resting BP: 127/81 Baseline BP: 101/73 Peak BP: 79/50 Hypotensive BP response. Rhythm during testing: Atrial fibrillation, with probable intermittently aberrantly conducted QRS complexes. Symptoms: Following Lexiscan administration the patient initially experienced increased shortness of breath, followed by marked lightheadedness, correlating temporally with the marked BP decrease. Symptoms were fully resolved by 8 minutes of recovery. EKG at rest showed atrial fibrillation with controlled ventricular response rate, with right bundle branch block with secondary repolarization abnormalities. EKG at peak stress showed no ischemia by EKG criteria. In Recovery blood pressure slowly increased after initial hypotensive response; note that data recording cuts off after 6 minutes, but repeat BP at 8 minutes showed likely rebound hypertensive response, at 173/71. Nuclear imaging was performed at rest and with stress. The images are reported separately. ILuis A MD, was present throughout this pharmacologic stress study and supervised it in its entirety. Summary: 1) Abnormal resting EKG. 2) Adequate stress was likely achieved. 3) Abnormal hypotensive BP response to pharmacologic agent. 4) No ischemic changes by EKG criteria were seen at peak stress. 5) Analysis of gated nuclear images reveals normal left ventricular size and systolic function, though with comment noting "septal rocking"; SPECT analysis reveals normal perfusion of the left ventricle at rest and following walking Lexiscan stress, thus no evidence of prior infarct or inducible ischemia. See separate report for more detail. CONCLUSIONS: 1) Abnormal walking Lexiscan stress myocardial perfusion study, with marked and symptomatic hypotension, that gradually resolved, with rebound hypertension. 2) In spite of abnormal hypotensive response to Lexiscan there is no evidence of prior infarct or inducible ischemia.
[2021-07-17] MEDS: REGADENOSON 0.4 MG/5 ML SYRINGE IVP ONE (14:32)
--- NOTE | 2021-07-17 17:48 | Nuclear Medicine Report ---
PROCEDURE: Rest and pharmacological stress myocardial perfusion SPECT with gated imaging and ejection fraction INDICATIONS: FATIGUE, CHF RADIOPHARMACEUTICAL: 13.1 mCi Tc-99m Myoview IV at rest and 40.8 mCi Tc-99m Myoview IV at peak exerc ise. Gwx-jet-xpfzoock was performed. TECHNIQUE: Radiopharmaceutical was injected at peak stress test, and also at rest. SPECT images wer e obtained. SPECT myocardial perfusion images were displayed in short axis, horizontal long axis, an d vertical long axis views. Gated images were reviewed using Auto[employer] software. COMPARISON: Myocardial perfusion scan, 02/19/2018. FINDINGS: Raw data: There is good myocardial labeling by radiotracer. No significant motion artifacts. Lung- to-heart ratio is 0.34 (normal is less than 0.46 for tetrafosmin tracer). Left ventricle function: Gated images demonstrate normal left ventricle wall thickening. There is se ptal rocking. No transient ischemic dilation; TID is 0.87 (normal less than 1.30). The left ventric le resting end-diastolic volume is 72 mL. Left ventricle stress ejection fraction is 62%; normal jv ues are above 45%. Myocardial perfusion: There is normal distribution of activity in the left and right ventricular nomi cardium. No fixed or reversible perfusion defects. IMPRESSION: 1. Normal myocardial perfusion images. No perfusion defect to suggest myocardial ischemia or infarct. 2. Normal left ventricular volume and systolic function. There is septal rocking. 3. No significant change from the last exam. 4. Please correlate with stress EKG result. PQRS ATTESTATIONS: Measure 322 - Is this imaging test primarily performed on a low-risk surgery patient for preoperative evaluation within 30 days preceding their low-risk non-cardiac surgery? Low-risk surgery is defined as cardiac or myocardial infarction less than 1%, including (but not limited to) endoscopic pr ocedures, superficial procedures, cataract surgery, and excisional breast surgery: Answer: No Measure 323 - Is this imaging test performed primarily for the monitoring of an asymptomatic patient who had percutaneous coronary intervention on the visit date or within 2 years of the visit date? An swer: No Measure 324 - Is this imaging test performed primarily for the initial detection and risk assessment on an asymptomatic, low coronary heart disease patient? Low CHD risk definition = clinicians should consider the maximum number of available patient factors used to estimate risk based on [place] (A TP III criteria), typically age, gender, diabetes, smoking status, and use of blood pressure medicati on, and integrate age appropriate estimates for missing elements, such as LDL or standard blood press ure. Answer: No Reviewed by: Zhao Dickey MD on 07/17/2021 5:47 PM PST Approved by: Zhao Dickey MD on 07/17/2021 5:47 PM PST Station ID: [id number]
== END 2021-07-17 12:22 | disposition home or self-care (01) ==
LOC: DI 12:21
PROVIDERS: ATTEND Internal Medicine Cardiovascular Disease
DX: R53.83 Other fatigue (principal); I50.9 Heart failure, unspecified; R94.39 Abnormal result of other cardiovascular function study; I25.10 Atherosclerotic heart disease of native coronary artery without angina pectoris; I11.0 Hypertensive heart disease with heart failure
CPT/HCPCS: 78452; 93016; 93017; 93018; A9500; J2785

== ENCOUNTER 2021-08-02 10:16 | Outpatient (CLI) | payer MEDICARE | END 2021-08-02 10:17 | disposition home or self-care (01) | LOC: LAB.S 10:16 | PROVIDERS: ATTEND Family Medicine | DX: I48.20 Chronic atrial fibrillation, unspecified (principal) | CPT/HCPCS: 36416; 85610 ==

== ENCOUNTER 2021-08-20 10:17 | Outpatient (CLI) | payer MEDICARE | END 2021-08-20 10:18 | disposition home or self-care (01) | LOC: LAB.S 10:17 | PROVIDERS: ATTEND Family Medicine | DX: I48.20 Chronic atrial fibrillation, unspecified (principal) | CPT/HCPCS: 36416; 85610 ==

== ENCOUNTER 2021-09-17 10:06 | Outpatient (CLI) | payer MEDICARE | END 2021-09-17 10:07 | disposition home or self-care (01) | LOC: LAB.S 10:06 | PROVIDERS: ATTEND Family Medicine | DX: I48.20 Chronic atrial fibrillation, unspecified (principal) | CPT/HCPCS: 36416; 85610 ==

== ENCOUNTER 2021-10-15 10:55 | Outpatient (CLI) | payer MEDICARE | END 2021-10-15 10:56 | disposition home or self-care (01) | LOC: LAB.S 10:55 | PROVIDERS: ATTEND Family Medicine | DX: I48.20 Chronic atrial fibrillation, unspecified (principal) | CPT/HCPCS: 36416; 85610 ==

== ENCOUNTER 2021-11-12 09:59 | Outpatient (CLI) | payer MEDICARE | END 2021-11-12 10:00 | disposition home or self-care (01) | LOC: LAB.S 09:59 | PROVIDERS: ATTEND Family Medicine | DX: I48.20 Chronic atrial fibrillation, unspecified (principal) | CPT/HCPCS: 36416; 85610 ==

== ENCOUNTER 2021-12-12 10:29 | Outpatient (CLI) | payer MEDICARE | END 2021-12-12 10:30 | disposition home or self-care (01) | LOC: LAB.S 10:29 | PROVIDERS: ATTEND Family Medicine | DX: I48.20 Chronic atrial fibrillation, unspecified (principal) | CPT/HCPCS: 36416; 85610 ==

== ENCOUNTER 2022-01-14 09:45 | Outpatient (CLI) | payer MEDICARE | END 2022-01-14 09:46 | disposition home or self-care (01) | LOC: LAB.S 09:45 | PROVIDERS: ATTEND Family Medicine | DX: I48.20 Chronic atrial fibrillation, unspecified (principal) | CPT/HCPCS: 36416; 85610 ==

== ENCOUNTER 2022-03-11 09:45 | Outpatient (CLI) | payer MEDICARE | END 2022-03-11 09:46 | disposition home or self-care (01) | LOC: LAB.S 09:45 | PROVIDERS: ATTEND Family Medicine | DX: I48.20 Chronic atrial fibrillation, unspecified (principal) | CPT/HCPCS: 36416; 85610 ==

== ENCOUNTER 2022-04-08 10:08 | Outpatient (CLI) | payer MEDICARE | END 2022-04-08 10:09 | disposition home or self-care (01) | LOC: LAB.S 10:08 | PROVIDERS: ATTEND Family Medicine | DX: I48.20 Chronic atrial fibrillation, unspecified (principal) | CPT/HCPCS: 36416; 85610 ==

== ENCOUNTER 2022-05-06 09:50 | Outpatient (CLI) | payer MEDICARE | END 2022-05-06 09:51 | disposition home or self-care (01) | LOC: LAB.S 09:50 | PROVIDERS: ATTEND Family Medicine | DX: I48.20 Chronic atrial fibrillation, unspecified (principal) | CPT/HCPCS: 36416; 85610 ==

== ENCOUNTER 2022-05-22 13:10 | Emergency (ER) | payer MEDICARE ==
[2022-05-22 13:20] VITALS: BP 148/76
--- NOTE | 2022-05-22 14:03 | XRAY Report ---
PROCEDURE: Ankle 3 View LT INDICATIONS: fall TECHNIQUE: 3 views of the ankle were acquired. COMPARISON: None FINDINGS: Bones: Bones are diffusely osteopenic. No fractures or dislocations. Ankle mortise is normally align ed. No suspicious bony lesions. Soft tissues: No tibiotalar joint effusion. Achilles tendon appears normal. IMPRESSION: No acute fracture. If pain persists, consider repeat imaging in 5-7 days to exclude occu lt fracture. Reviewed by: Cayla Alvarado MD on 05/22/2022 2:02 PM PST Approved by: Cayla Alvarado MD on 05/22/2022 2:02 PM PST Station ID: [id number]
--- NOTE | 2022-05-22 14:05 | XRAY Report ---
PROCEDURE: Foot 3 View LT INDICATIONS: fall TECHNIQUE: 3 views of the foot were acquired. COMPARISON: None FINDINGS: Bones: Bones are diffusely osteopenic. There is diffuse moderate to severe interphalangeal joint spac e narrowing and degenerative changes of the midfoot. No fractures or dislocations. No suspicious bon y lesions. Soft tissues: No tibiotalar joint effusion. Achilles tendon appears normal. IMPRESSION: Degenerative change. Osteopenia. No acute fracture visualized. If pain persists, consider repeat imag ing in 5-7 days to exclude occult fracture. Reviewed by: Cayla Alvarado MD on 05/22/2022 2:04 PM PST Approved by: Cayla Alvarado MD on 05/22/2022 2:04 PM PST Station ID: [id number]
--- NOTE | 2022-05-22 14:07 | XRAY Report ---
PROCEDURE: Wrist 3 View LT INDICATIONS: fall TECHNIQUE: 3 views of the wrist were acquired. COMPARISON: None FINDINGS: Bones: No fractures or dislocations. No suspicious bony lesions. Severe degenerative changes are pr esent throughout the carpal bones and the first CMC joint. The trapezium is likely surgically absent. There is negative ulnar variance. Soft tissues: No suspicious soft tissue calcifications. IMPRESSION: Severe degenerative change. No acute radiographic findings. If pain persists, consider repeat imaging in 5-7 days to exclude occult fracture. Reviewed by: Cayla Alvarado MD on 05/22/2022 2:05 PM [facility] Approved by: Cayla Alvarado MD on 05/22/2022 2:05 PM [facility] Station ID: [id number]
--- NOTE | 2022-05-22 14:09 | CT Report ---
PROCEDURE: HEAD WO INDICATIONS: head injury on coumadin TECHNIQUE: Noncontrast 4.5 mm thick angled axial sections acquired from the foramen magnum to the vertex. For r adiation dose reduction, the following was used: automated exposure control, adjustment of mA and/or kV according to patient size. COMPARISON: None FINDINGS: Image quality: Excellent. CSF spaces: Basal cisterns are patent. No extra-axial fluid collections. The ventricles are symmet sindhu in size and shape. Brain: No intracranial bleeds or masses. There is cerebral volume loss for age, with resultant vent ricular and sulcal prominence. There are periventricular and deep white matter chronic small vessel ischemic changes. There is intracranial internal carotid artery atherosclerosis. Skull and face: Calvarium and visualized facial bones appear intact, without suspicious lesions. Sinuses: Visualized sinuses and mastoids are clear. IMPRESSION: 1. No acute intracranial findings. 2. Findings likely associated with chronic microvascular ischemic changes. Reviewed by: Cayla Alvarado MD on 05/22/2022 2:08 PM PST Approved by: Cayla Alvarado MD on 05/22/2022 2:08 PM PST Station ID: [id number]
--- NOTE | 2022-05-22 14:45 | ED Physician Documentation ---
PD HPI HEAD INJURY - Stated complaint Stated Complaint: GLF, HEAD PX - Chief complaint Chief Complaint: Trauma Hd/Nk - History obtained from History obtained from: Patient, Family - Additional information Additional information: Patient is an 86-year-old female with a history of atrial fibrillation (on Coumadin) presenting for evaluation after a fall yesterday around noon time. Patient was in the garage standing on a small step stool when she fell back as the stool had collapsed. She believes she did not open the stool fully before stepping onto it.She did strike her head on the garage floor. She did not have LOC. She reports pain to the back of her head, left wrist and left ankle.She went to the walk-in clinic in [place] who directed her to the emergency department for evaluation. She denies dizziness, chest pain, difficulty breathing.She has been able to ambulate at her baseline with her walker. Review of Systems Constitutional: denies: Fever Nose: denies: Congestion Cardiac: denies: Chest pain / pressure Respiratory: denies: Dyspnea GI: denies: Abdominal Pain : denies: Dysuria Musculoskeletal: reports: Extremity pain PD PAST MEDICAL HISTORY - Past Medical History Cardiovascular: Congestive heart failure, Hypertension, High cholesterol, Coronary artery disease, Atrial fibrillation Respiratory: Pneumonia Neuro: Headaches, Migraines Endocrine/Autoimmune: None GI: Ulcers : Incontinence, Kidney stones HEENT: Chronic hearing loss, Other Musculoskeletal: Osteoarthritis Derm: None - Past Surgical History Past Surgical History: Yes General: Colonoscopy, Other Ortho: Knee replacement, Shoulder arthroplasty, Carpal 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 surgery /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: Hysterectomy HEENT: Tonsil/Adenoidectomy - Present Medications Home Medications: Ambulatory Orders Medication Instructions Recorded Confirmed Calcium Carbonate [Calcium] 600 mg ORAL BID 12/23/16 03/14/21 Cholecalciferol (Vitamin D3) 50 mcg ORAL DAILY 12/23/16 03/14/21 [Vitamin D3] Multivitamin [Multiple Vitamins] 1 tab ORAL DAILY 12/23/16 03/14/21 Verapamil ER [Calan SA] 90 mg ORAL BID 12/23/16 06/23/17 Warfarin [Coumadin] 5 mg ORAL TUSA 12/23/16 03/14/21 Ferrous Sulfate 325 mg PO BID 03/14/21 03/14/21 Furosemide [Lasix] 40 mg PO DAILY 03/14/21 03/14/21 Losartan [Cozaar] 50 mg PO DAILY 03/14/21 03/14/21 Metoprolol Tartrate [Lopressor] 50 mg PO BID 03/14/21 03/14/21 Oxybutynin Chloride [Ditropan Xl] 10 mg PO DAILY 03/14/21 03/14/21 Potassium Chloride 20 meq PO DAILY 03/14/21 03/14/21 Warfarin [Coumadin] 7.5 mg PO SUMOWETHFR 03/14/21 03/14/21 traMADol [Ultram] 100 mg PO BID 03/14/21 03/14/21 - Allergies Allergies/Adverse Reactions: Allergies Allergy/AdvReac Type Severity Reaction Status Date / Time adhesive tape Allergy Rash Verified 05/22/22 13:21 codeine Allergy Emesis Verified 03/14/21 17:40 Penicillins Allergy Rash Verified 03/14/21 17:40 Sulfa (Sulfonamide Allergy Emesis Verified 03/14/21 17:40 Antibiotics) - Social History Does the pt smoke?: No Smoking Status: Never smoker Does the pt drink ETOH?: No Does the pt have substance abuse?: No - Immunizations Immunizations are current?: Yes - POLST Patient has POLST: No POLST Status: DNR PD ED PE NORMAL - General General: Alert and oriented X 3, No acute distress, Well developed/nourished - HEENT HEENT: PERRL, EOMI, Moist mucous membranes, Pharynx benign, Other (Abrasion to occipital scalp) - Neck Neck: Supple, no meningeal sign, No bony TTP, C-Spine cleared by NEXUS criteria - Cardiac Cardiac: RRR, No murmur - Respiratory Respiratory: No respiratory distress, Clear bilaterally - Abdomen Abdomen: Soft, Non tender - Back Back: No spinal TTP - Derm Derm: Warm and dry - Extremities Extremities: Other (Mild tenderness and swelling to left wrist and left ankle) - Neuro Neuro: Alert and oriented X 3, clinical informatics specialist 2-12 intact, No motor deficit, Normal speech Eye Opening: Spontaneous Motor: Obeys Commands Verbal: Oriented GCS Score: 15 Results - Vitals Vitals: Vital Signs - 24 hr 05/22/22 13:15 Temperature 36.5 C Heart Rate 73 Respiratory 16 Rate Blood Pressure 148/76 H O2 Saturation 99 Oxygen O2 Source Room air - Labs Labs: Laboratory Tests 05/22/22 13:44 PT 50.9 H INR 5.0 H* Departure - Departure Disposition: ED Transfer to [facility] Clinical Impression: Supratherapeutic INR Head injury Qualifiers: Encounter type: initial encounter Qualified Code(s): S09.90XA - Unspecified injury of head, initial encounter Left ankle sprain Qualifiers: Encounter type: initial encounter Contusion of left wrist Qualifiers: Encounter type: initial encounter Qualified Code(s): S60.212A - Contusion of left wrist, initial encounter Condition: Stable Instructions: ED Head Injury Closed, ED Sprain Ankle Comments: The CT scan of your head as well as x-rays of your left wrist, ankle and foot all negative for injuries. Your warfarin level was checked and is too high (INR = 5.0). Please skip your dose today and tomorrow and resume on Friday. Please keep Your appointment to have it checked on Friday. Continue with rest, ice, Du wraps as needed for areas of pain.If you have any worsening symptoms please consider return to the emergency department.
[2022-05-22 14:46] LABS: PT - PROTHROMBIN TIME 50.9 secs (9.9-12.6)
== END 2022-05-22 15:50 | disposition home or self-care (01) ==
LOC: ED 13:10
DX: S09.90XA Unspecified injury of head, initial encounter (principal); S60.212A Contusion of left wrist, initial encounter; S93.402A Sprain of unspecified ligament of left ankle, initial encounter; W17.89XA Other fall from one level to another, initial encounter; I48.91 Unspecified atrial fibrillation; Z79.01 Long term (current) use of anticoagulants
CPT/HCPCS: 36415; 85610; 99282; 99284

== ENCOUNTER 2022-05-27 10:47 | Outpatient (CLI) | payer MEDICARE | END 2022-05-27 10:48 | disposition home or self-care (01) | LOC: LAB.S 10:47 | PROVIDERS: ATTEND Family Medicine | DX: I48.20 Chronic atrial fibrillation, unspecified (principal) | CPT/HCPCS: 36416; 85610 ==

== ENCOUNTER 2022-06-25 10:06 | Outpatient (CLI) | payer MEDICARE | END 2022-06-25 10:07 | disposition home or self-care (01) | LOC: LAB.S 10:06 | PROVIDERS: ATTEND Family Medicine | DX: I48.20 Chronic atrial fibrillation, unspecified (principal) | CPT/HCPCS: 36416; 85610 ==

== ENCOUNTER 2022-07-16 09:46 | Outpatient (CLI) | payer MEDICARE | END 2022-07-16 09:47 | disposition home or self-care (01) | LOC: LAB.S 09:46 | PROVIDERS: ATTEND Family Medicine | DX: I48.20 Chronic atrial fibrillation, unspecified (principal) | CPT/HCPCS: 36416; 85610 ==

== ENCOUNTER 2022-07-31 10:48 | Outpatient (CLI) | payer MEDICARE | END 2022-07-31 10:49 | disposition home or self-care (01) | LOC: LAB.S 10:48 | PROVIDERS: ATTEND Family Medicine | DX: I48.20 Chronic atrial fibrillation, unspecified (principal) | CPT/HCPCS: 36416; 85610 ==

== ENCOUNTER 2022-08-21 10:11 | Outpatient (CLI) | payer MEDICARE | END 2022-08-21 10:12 | disposition home or self-care (01) | LOC: LAB.S 10:11 | PROVIDERS: ATTEND Family Medicine | DX: I48.20 Chronic atrial fibrillation, unspecified (principal) | CPT/HCPCS: 36416; 85610 ==

== ENCOUNTER 2022-09-04 09:45 | Outpatient (CLI) | payer MEDICARE | END 2022-09-04 09:46 | disposition home or self-care (01) | LOC: LAB.S 09:45 | PROVIDERS: ATTEND Family Medicine | DX: I48.20 Chronic atrial fibrillation, unspecified (principal) | CPT/HCPCS: 36416; 85610 ==

== ENCOUNTER 2022-09-12 15:51 | Outpatient (CLI) | payer MEDICARE | END 2022-09-12 23:59 | disposition critical access hospital (66) | LOC: EMS 15:51 | DX: S00.83XA Contusion of other part of head, initial encounter (principal); W01.0XXA Fall on same level from slipping, tripping and stumbling without subsequent striking against object, initial encounter; Y92.007 Garden or yard of unspecified non-institutional (private) residence as the place of occurrence of the external cause; Z79.01 Long term (current) use of anticoagulants | CPT/HCPCS: A0425; A0429 ==

== ENCOUNTER 2022-09-12 16:21 | Emergency (ER) | payer MEDICARE ==
--- NOTE | 2022-09-12 16:33 | ED Physician Documentation ---
PD HPI HEAD INJURY - Stated complaint Stated Complaint: GLF HIT FACE - Chief complaint Chief Complaint: Trauma Hd/Nk - History obtained from History obtained from: Patient - Additional information Additional information: This is a corina 86-year-old woman on warfarin for A-fib who had an INR of 2.1 a week ago per her. She was out looking at the birds and tripped over her own feet and landed face first against some paving tiles. She has a mild left-sided headache and facial pain as well as pain at the nasal bridge from where her glasses kind of impacted onto it. She also complains of pain near the left fourth toe. No loss of consciousness. 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 HEENT: Tonsil/Adenoidectomy - Present Medications Home Medications: Ambulatory Orders Medication Instructions Recorded Confirmed Calcium Carbonate [Calcium] 600 mg ORAL BID 12/23/16 03/14/21 Cholecalciferol (Vitamin D3) 50 mcg ORAL DAILY 12/23/16 03/14/21 [Vitamin D3] Multivitamin [Multiple Vitamins] 1 tab ORAL DAILY 12/23/16 03/14/21 Verapamil ER [Calan SA] 90 mg ORAL BID 12/23/16 06/23/17 Warfarin [Coumadin] 5 mg ORAL TUSA 12/23/16 03/14/21 Ferrous Sulfate 325 mg PO BID 03/14/21 03/14/21 Furosemide [Lasix] 40 mg PO DAILY 03/14/21 03/14/21 Losartan [Cozaar] 50 mg PO DAILY 03/14/21 03/14/21 Metoprolol Tartrate [Lopressor] 50 mg PO BID 03/14/21 03/14/21 Oxybutynin Chloride [Ditropan Xl] 10 mg PO DAILY 03/14/21 03/14/21 Potassium Chloride 20 meq PO DAILY 03/14/21 03/14/21 Warfarin [Coumadin] 7.5 mg PO SUMOWETHFR 03/14/21 03/14/21 traMADol [Ultram] 100 mg PO BID 03/14/21 03/14/21 - Allergies Allergies/Adverse Reactions: Allergies Allergy/AdvReac Type Severity Reaction Status Date / Time adhesive tape Allergy Rash Verified 05/22/22 13:21 codeine Allergy Emesis Verified 03/14/21 17:40 Penicillins Allergy Rash Verified 03/14/21 17:40 Sulfa (Sulfonamide Allergy Emesis Verified 03/14/21 17:40 Antibiotics) - Social History Does the pt smoke?: No Smoking Status: Never smoker Does the pt drink ETOH?: No Does the pt have substance abuse?: No - Immunizations Immunizations are current?: Yes - POLST Patient has POLST: No POLST Status: DNR PD ED PE NORMAL - Vitals Vital signs reviewed: Yes - General General: Alert and oriented X 3, No acute distress - HEENT HEENT: PERRL, EOMI, Other (Very mild tenderness over the nasal bridge and left infraorbital area with some bruising there.) - Neck Neck: Supple, no meningeal sign, No bony TTP - Extremities Extremities: Other (Tender to the left fourth metatarsal distally without visible trauma there.) - Neuro Neuro: Alert and oriented X 3, Normal speech Eye Opening: Spontaneous Motor: Obeys Commands Verbal: Oriented GCS Score: 15 Results - Vitals Vitals: Vital Signs - 24 hr 09/12/22 16:28 Temperature 36.9 C Heart Rate 70 Respiratory 16 Rate Blood Pressure 146/86 H O2 Saturation 93 Oxygen O2 Source Room air - Labs Labs: Laboratory Tests 09/12/22 16:34 INR (Fingerstick) 3.4 H - Rads (name of study) CT of the head, face, and cervical spine demonstrate nondisplaced nasal fracture, otherwise no trauma Relevant Findings:: Final report received, EMP independent interpretation of test X-ray of the left foot demonstrates a subtle probably nondisplaced fracture of the third metatarsal neck Relevant Findings:: Final report received, EMP independent interpretation of test PD Medical Decision Making - ED course ED course: This is a corina 86-year-old woman who is anticoagulated who had a fall today. She hit her head. Advanced imaging of the head neck and face demonstrate only a subtle nondisplaced nasal fracture. She also hurt her foot and imaging there demonstrates a left third metatarsal neck fracture for which she is placed in a boot. I do not think she would tolerate nonweightbearing and looks pretty minor so we will have her weight-bear until follow-up. Departure - Departure Disposition: 01 Home, Self Care Clinical Impression: Supratherapeutic INR Fracture of third metatarsal bone of left foot Qualifiers: Encounter type: initial encounter Fracture type: closed Fracture alignment: nondisplaced Qualified Code(s): S92.335A - Nondisplaced fracture of third metatarsal bone, left foot, initial encounter for closed fracture Nasal fracture Qualifiers: Encounter type: initial encounter Fracture type: closed Qualified Code(s): S02.2XXA - Fracture of nasal bones, initial encounter for closed fracture Head injury Qualifiers: Encounter type: initial encounter Qualified Code(s): S09.90XA - Unspecified injury of head, initial encounter Facial contusion Qualifiers: Encounter type: initial encounter Qualified Code(s): S00.83XA - Contusion of other part of head, initial encounter Condition: Stable Record reviewed to determine appropriate education?: Yes Instructions: ED Fx Foot, ED Fx Nasal Conf W X Ray Follow-Up: [facility] [Provider Group] JF COELHO [Physician No Access] - Comments: Your INR today was slightly elevated over range at 3.4. Skip your next dose of warfarin, have your level rechecked on Friday. Regarding the nasal fracture, if you would like you can follow-up with Dr. Jf Coelho a facial fracture specialist in [place]. That said the fracture is nondisplaced so I do not think it is 100% necessary. For the foot fracture you should follow-up with orthopedics, the numbers on this form as well. Tylenol as needed for pain. Return for new or worsening symptoms.
--- NOTE | 2022-09-12 17:14 | XRAY Report ---
PROCEDURE: Foot 3 View LT INDICATIONS: foot inj TECHNIQUE: 3 views of the foot were acquired. COMPARISON: 05/22/2022 FINDINGS: Bones: Deformity involving third metatarsal neck is seen concerning for subtle nondisplaced fracture in this area suggest clinical correlation. Osteoarthritic changes are noted throughout left foot. Dif fuse osteopenia is also seen. No suspicious bony lesions. Soft tissues: No tibiotalar joint effusion. Achilles tendon appears normal. IMPRESSION: Finding is suggestive of a subtle nondisplaced third metatarsal neck fracture. Diffuse osteopenia. Di ffuse left foot osteoarthritis. Reviewed by: David Monroy MD on 09/12/2022 4:13 PM KAREY Approved by: David Monroy MD on 09/12/2022 4:13 PM AKXAVIER Station ID: [id number]
--- NOTE | 2022-09-12 17:30 | CT Report ---
PROCEDURE: HEAD WO INDICATIONS: Head and face injury on warfarin TECHNIQUE: Noncontrast 4.5 mm thick angled axial sections acquired from the foramen magnum to the vertex. For r adiation dose reduction, the following was used: automated exposure control, adjustment of mA and/or kV according to patient size. COMPARISON: Noncontrast head CT 05/22/2022. FINDINGS: Image quality: Excellent. CSF spaces: Basal cisterns are patent. No extra-axial fluid collections. Ventricles are normal in size and shape. Brain: No midline shift. No intracranial masses or hemorrhage. No area of hypodensity in a vascula r distribution to suggest acute infarction. There is periventricular hypodensity consistent with special order jeweler hair microvascular ischemic disease. Age-related parenchymal loss. Skull and face: Calvarium and visualized facial bones are intact, without suspicious lesions. Sinuses: Visualized sinuses and mastoids are clear. IMPRESSION: No acute intracranial abnormality. Reviewed by: Kleber Garcia MD on 09/12/2022 5:29 PM PDT Approved by: Kleber Garcia MD on 09/12/2022 5:29 PM PDT Station ID: [id number]
--- NOTE | 2022-09-12 17:33 | CT Report ---
PROCEDURE: CERVICAL SPINE WO INDICATIONS: Head and face injury on warfarin TECHNIQUE: Noncontrast 3 mm thick sections acquired from the skull base to the T4 level. Sagittal and coronal r eformats were then constructed. For radiation dose reduction, the following was used: automated exp osure control, adjustment of mA and/or kV according to patient size. COMPARISON: None. FINDINGS: Image quality: Excellent. Bones: No fractures or dislocations. Moderate degenerative change. Bridging osteophyte anteriorly at C4-C5. Disc osteophyte complexes. Visualized superior ribs are intact. Soft tissues: Prevertebral soft tissues are normal in thickness. No paravertebral hematomas. No ap ical pneumothoraces. Bilateral carotid bulb atherosclerotic calcifications. IMPRESSION: No acute osseous abnormality. Reviewed by: Kleber Garcia MD on 09/12/2022 5:31 PM PDT Approved by: Kleebr Garcia MD on 09/12/2022 5:31 PM PDT Station ID: [id number]
[2022-09-12] MEDS ORDERED: ACETAMINOPHEN 500 MG TABLET PO STA (17:37)
--- NOTE | 2022-09-12 17:57 | CT Report ---
PROCEDURE: MAXILLOFACIAL WO INDICATIONS: Head and face injury on warfarin TECHNIQUE: Noncontrast 1.5 mm thick axial images acquired from the mandible through the frontal sinuses, with co jana and sagittal reformatting. For radiation dose reduction, the following was used: automated ex posure control, adjustment of mA and/or kV according to patient size. COMPARISON: None. FINDINGS: Image quality: Excellent. Bones and teeth: Orbital hudson are intact. Sinus hudson show no fracture or deformity. Deformity inv olving bilateral anterior nasal bones are seen suggestive of slightly displaced nasal bone fractures. Nasal septum is midline. Visualized portions of the mandible demonstrate no fractures or subluxation . Zygomatic arches are intact. Pterygoid plates are intact. Visualized portions of the skull base and auditory canals are intact. Sinuses: Paranasal sinuses are aerated, without fluid levels, mucosal thickening, or mucoceles. Mas toid air cells are aerated. Soft tissues: No edema, masses, or fluid collections. No enlarged lymph nodes. No soft tissue lace rations or debris. Vascular: Visualized vascular structures appear normal in the absence of contrast. Bony vascular fo ramina and canals are intact. IMPRESSION: 1. Age-indeterminate deformity involving bilateral anterior nasal bones as described above suggest cl inical correlation. Nasal septum is midline. 2. No other facial bone fracture is seen. Bilateral orbital hudson are intact. The lateral orbital андрей bes are intact. 3. Bilateral paranasal sinuses are well aerated. Reviewed by: David Monroy MD on 09/12/2022 4:55 PM AKDT Approved by: David Monroy MD on 09/12/2022 4:55 PM AKDT Station ID: [id number]
[2022-09-12 18:28] VITALS: BP 167/98
== END 2022-09-12 18:27 | disposition home or self-care (01) ==
LOC: EDUNIT# → ED 16:21
DX: S92.335A Nondisplaced fracture of third metatarsal bone, left foot, initial encounter for closed fracture (principal); S02.2XXA Fracture of nasal bones, initial encounter for closed fracture; S09.90XA Unspecified injury of head, initial encounter; S00.83XA Contusion of other part of head, initial encounter; W01.198A Fall on same level from slipping, tripping and stumbling with subsequent striking against other object, initial encounter; Y93.89 Activity, other specified; R79.1 Abnormal coagulation profile; Z79.01 Long term (current) use of anticoagulants; Z66 Do not resuscitate
CPT/HCPCS: 70450; 70486; 72125; 73630; 85610; 99284; A9270

== ENCOUNTER 2022-09-17 09:48 | Outpatient (CLI) | payer MEDICARE | END 2022-09-17 09:49 | disposition home or self-care (01) | LOC: LAB.S 09:48 | PROVIDERS: ATTEND Family Medicine | DX: I48.20 Chronic atrial fibrillation, unspecified (principal) | CPT/HCPCS: 36416; 85610 ==

== ENCOUNTER 2022-09-27 09:16 | Outpatient (CLI) | payer MEDICARE | END 2022-09-27 09:17 | disposition home or self-care (01) | LOC: LAB.S 09:16 | PROVIDERS: ATTEND Family Medicine | DX: I48.20 Chronic atrial fibrillation, unspecified (principal) | CPT/HCPCS: 36416; 85610 ==

== ENCOUNTER 2022-10-18 09:19 | Outpatient (CLI) | payer MEDICARE | END 2022-10-18 09:20 | disposition home or self-care (01) | LOC: LAB.S 09:19 | PROVIDERS: ATTEND Family Medicine | DX: I48.20 Chronic atrial fibrillation, unspecified (principal) | CPT/HCPCS: 36416; 85610 ==

== ENCOUNTER 2022-11-04 10:07 | Outpatient (CLI) | payer MEDICARE | END 2022-11-04 10:08 | disposition home or self-care (01) | LOC: LAB.S 10:07 | PROVIDERS: ATTEND Family Medicine | DX: I48.20 Chronic atrial fibrillation, unspecified (principal) | CPT/HCPCS: 36416; 85610 ==

== ENCOUNTER 2022-11-14 19:14 | Inpatient (IN) | payer MEDICARE ==
[2022-11-14] MEDS ORDERED: FUROSEMIDE 100 MG/10 ML VIAL IVP STA (19:39)
--- NOTE | 2022-11-14 19:40 | ED Physician Documentation ---
History of Present Illness - Stated complaint Stated Complaint: SOA - Chief complaint Chief Complaint: Resp - History obtained from History obtained from: Patient - Additonal information Additional information: 86yF with pmh afib on warfarin, CHF on 40mg daily lasix, p/w progressive leg swelling, soa, and pillow orthopnea over past week. also with reported 20lb weight gain today she attributes to water retention. denies hemoptysis, cough, fever, uri symptoms, cp, nausea, diaphoresis. she states she saw her pcp Bonny MCKEON at [facility] today and was sent here for evaluation. Review of Systems Constitutional: denies: Fever Nose: denies: Rhinorrhea / runny nose, Congestion Throat: denies: Sore throat Cardiac: denies: Chest pain / pressure, Palpitations Respiratory: reports: Dyspnea. denies: Cough GI: denies: Nausea PD PAST MEDICAL HISTORY - Past Medical History Cardiovascular: Congestive heart failure, Hypertension, High cholesterol, Coronary artery disease, Atrial fibrillation Respiratory: Pneumonia Neuro: Headaches, Migraines Endocrine/Autoimmune: None GI: Ulcers : Incontinence, Kidney stones HEENT: Chronic hearing loss, Other Musculoskeletal: Osteoarthritis Derm: None - Past Surgical History Past Surgical History: Yes General: Colonoscopy, Other Ortho: Knee replacement, Shoulder arthroplasty, Carpal Tunnel surgery /[employer] SPECIALIST: Hysterectomy HEENT: Tonsil/Adenoidectomy - Present Medications Home Medications: Ambulatory Orders Medication Instructions Recorded Confirmed Calcium Carbonate [Calcium] 600 mg ORAL BID 12/23/16 03/14/21 Cholecalciferol (Vitamin D3) 50 mcg ORAL DAILY 12/23/16 03/14/21 [Vitamin D3] Multivitamin [Multiple Vitamins] 1 tab ORAL DAILY 12/23/16 03/14/21 Verapamil ER [Calan SA] 90 mg ORAL BID 12/23/16 06/23/17 Warfarin [Coumadin] 5 mg ORAL TUSA 12/23/16 03/14/21 Ferrous Sulfate 325 mg PO BID 03/14/21 03/14/21 Furosemide [Lasix] 40 mg PO DAILY 03/14/21 03/14/21 Losartan [Cozaar] 50 mg PO DAILY 03/14/21 03/14/21 Metoprolol Tartrate [Lopressor] 50 mg PO BID 03/14/21 03/14/21 Potassium Chloride 20 meq PO DAILY 03/14/21 03/14/21 Warfarin [Coumadin] 7.5 mg PO SUMOWETHFR 03/14/21 03/14/21 oxyBUTYnin chloride [Ditropan Xl] 10 mg PO DAILY 03/14/21 03/14/21 traMADol [Ultram] 100 mg PO BID 03/14/21 03/14/21 - Allergies Allergies/Adverse Reactions: Allergies Allergy/AdvReac Type Severity Reaction Status Date / Time adhesive tape Allergy Rash Verified 05/22/22 13:21 codeine Allergy Emesis Verified 03/14/21 17:40 Penicillins Allergy Rash Verified 03/14/21 17:40 Sulfa (Sulfonamide Allergy Emesis Verified 03/14/21 17:40 Antibiotics) - Social History Does the pt smoke?: No Smoking Status: Never smoker Does the pt drink ETOH?: No Does the pt have substance abuse?: No - Immunizations Immunizations are current?: Yes - POLST Patient has POLST: No POLST Status: DNR PD ED PE NORMAL - Vitals Vital signs reviewed: Yes - General General: Alert and oriented X 3, No acute distress, Other (elderly appearing) - HEENT HEENT: Atraumatic, PERRL, EOMI - Neck Neck: Supple, no meningeal sign - Cardiac Cardiac: RRR - Respiratory Respiratory: Other (BL inspiratory crackles in lower lung [place]. mild to moderate resting tachypnea) - Abdomen Abdomen: Non tender, Non distended - Derm Derm: Normal color, Warm and dry - Extremities Extremities: Other (BL 2+ LE pitting edema) - Neuro Neuro: Alert and oriented X 3 - Psych Psych: Normal mood, Normal affect Results - Vitals Vitals: Vital Signs - 24 hr 11/14/22 11/14/22 19:21 20:24 Temperature 37.0 C Heart Rate 81 72 Respiratory 23 17 Rate Blood Pressure 136/81 H 132/62 H O2 Saturation 97 98 Oxygen O2 Source Room air - EKG (time done) 2018 EKG releavant findings:: EKG personally interpreted by author of this note. Relevant findings are: Rate: Rate (enter#) (73) Rhythm: Atrial fibrillation Intervals: RBBB Ischemia: Normal ST segments Compare to prior EKG: Unchanged from prior EKG (03/14/21) Computer interpretation: Agree with computer - Labs Labs: Laboratory Tests 11/14/22 11/14/22 11/14/22 19:43 19:43 19:43 WBC 4.9 RBC 3.60 L Hgb 12.4 Hct 37.6 MCV 104.4 H MCH 34.4 H MCHC 33.0 RDW 14.9 Plt Count 191 MPV 9.5 Neut # (Auto) 3.2 Lymph # (Auto) 0.9 L [place] # (Auto) 0.6 Eos # (Auto) 0.1 Baso # (Auto) 0.1 Absolute Nucleated RBC 0.00 Nucleated RBC % 0.0 PT INR VBG pH 7.463 H VBG pCO2 32.8 L VBG pO2 64.2 H VBG HCO3 23.0 VBG Total CO2 24.0 VBG O2 Saturation 94.2 H VBG Base Excess -0.1 Sodium Potassium Chloride Carbon Dioxide Anion Gap BUN Creatinine Estimated GFR (MDRD) Glucose Calcium Total Bilirubin AST ALT Alkaline Phosphatase B-Natriuretic Peptide 991 H Total Protein Albumin Globulin Albumin/Globulin Ratio Lipase 11/14/22 11/14/22 20:09 20:09 WBC RBC Hgb Hct MCV MCH MCHC RDW Plt Count MPV Neut # (Auto) Lymph # (Auto) [place] # (Auto) Eos # (Auto) Baso # (Auto) Absolute Nucleated RBC Nucleated RBC % PT 35.4 H INR 3.4 H VBG pH VBG pCO2 VBG pO2 VBG HCO3 VBG Total CO2 VBG O2 Saturation VBG Base Excess Sodium 141 Potassium 4.1 Chloride 99 L Carbon Dioxide 27 Anion Gap 15.0 H BUN 41 H Creatinine 1.2 H Estimated GFR (MDRD) 43 L Glucose 99 Calcium 9.8 Total Bilirubin 0.9 AST 49 H ALT 34 Alkaline Phosphatase 86 B-Natriuretic Peptide Total Protein 7.5 Albumin 4.5 Globulin 3.0 Albumin/Globulin Ratio 1.5 Lipase 46 PD Medical Decision Making - ED course ED course: 86yF p/w CHF exacerbation with normal O2 status on RA but with moderate tachypnea at rest. Low suspicion for PE given no hemoptysis, cough, not hypoxic and she is on warfarin. Low suspicion for MT or pneumonia given no nausea, cp, diaphoresis, and no fever or cough. CBC, abdominal panel, vbg, INR ordered in addition to CXR and ekg. will f/u results. Plan to administer 100mg IV lasix and reevaluate. Labwork stable from previous with therapeutic INR at 3.4. Plan to f/u routinely in coumadin clinic. CXR with evidence of atelectasis and some mild pulmonary overload c/w CHF exacerbation. Patient clinically is not showing symptoms of pneumonia and is afebrile here therefore no antibiotics ordered. EKG unchanged from previous in 2020. afib with RBBB. Patient made 500cc urine s/p 100mg IV las ix but is still tachypneic with RR 22 at rest on my reevaluation and O2 sat dropping to 80s when she moves around in bed. Plan to admit to observation and continue diuresis. Departure - Departure Disposition: ED Place in Observation Clinical Impression: CHF exacerbation Condition: Stable
[2022-11-14 19:57] LABS: BASOPHILS # (AUTO) 0.1 10^3/uL (0.0-0.1); BASOPHILS % (AUTO) 1.2 %; EOSINOPHILS # (AUTO) 0.1 10^3/uL (0.0-0.7); EOSINOPHILS % (AUTO) 1.8 %; HCT - HEMATOCRIT 37.6 % (37.0-47.0); HGB - HEMOGLOBIN 12.4 g/dL (12.0-16.0); LYMPHOCYTES # (AUTO) 0.9 10^3/uL (1.5-3.5); LYMPHOCYTES % (AUTO) 18.2 %; MEAN CORPUSCULAR HEMOGLOBIN 34.4 pg (27.0-31.0); MEAN CORPUSCULAR VOLUME 104.4 fL (81.0-99.0); MEAN PLATELET VOLUME 9.5 fL (7.9-10.8); MONOCYTES # (AUTO) 0.6 10^3/uL (0.0-1.0); MONOCYTES % (AUTO) 12.4 %; NEUTROPHILS # (AUTO) 3.2 10^3/uL (1.5-6.6); PLT - PLATELET COUNT 191 10^3/uL (130-450); RED CELL DISTRIBUTION WIDTH 14.9 % (12.0-15.0); WHITE BLOOD COUNT 4.9 x10^3/uL (4.8-10.8)
[2022-11-14 20:02] LABS: VBG BASE EXCESS -0.1 mmol/L (-2 - +2); VBG OXYGEN SATURATION 94.2 % (60-80); VBG PCO2 32.8 mmHg (41-51); VBG PH 7.463 (7.31-7.41); VBG PO2 64.2 mmHg (25-47)
--- NOTE | 2022-11-14 20:07 | XRAY Report ---
PROCEDURE: Chest 1 View X-Ray INDICATIONS: Chest Pain TECHNIQUE: One view of the chest was acquired. COMPARISON: Chest x-ray 03/14/2021. FINDINGS: Surgical changes and devices: Left shoulder prosthesis redemonstrated. Lungs and pleura: Mild blunting of the bilateral costophrenic angles appear similar to the prior stud y suggestive of chronic pleural thickening. There are medial bibasilar reticular opacities likely rep resenting atelectasis. Mediastinum: Mediastinal contours appear unchanged. Heart size is enlarged. Bones and chest wall: No suspicious bony lesions. Overlying soft tissues appear unremarkable. IMPRESSION: 1. Medial retrocardiac opacities bilaterally likely represent atelectasis, and less likely developing consolidation. Reviewed by: Daquan Ray MD on 11/14/2022 8:05 PM PDT Approved by: Daquan Ray MD on 11/14/2022 8:05 PM PDT Station ID: [id number]
[2022-11-14 20:25] LABS: ALBUMIN 4.5 g/dL (3.2-5.5); ALBUMIN/GLOBULIN RATIO 1.5 (1.0-2.2); BILIRUBIN,TOTAL 0.9 mg/dL (0.2-1.0); CALCIUM 9.8 mg/dL (8.5-10.3); CREATININE 1.2 mg/dL (0.4-1.0); POTASSIUM 4.1 mmol/L (3.5-5.0); TOTAL PROTEIN 7.5 g/dL (6.7-8.2)
[2022-11-14 20:28] LABS: INR 3.4 (0.8-1.2); PT - PROTHROMBIN TIME 35.4 secs (9.9-12.6)
[2022-11-14] MEDS ORDERED: SODIUM CHLORIDE FLUSH 0.9% 10 ML SYRINGE IVP PRN (21:19)
[2022-11-14] MEDS ORDERED: PROCHLORPERAZINE 10 MG/2 ML VIAL IVP PRN (21:19)
[2022-11-14] MEDS ORDERED: ONDANSETRON 4 MG/2 ML VIAL IVP PRN (21:19)
[2022-11-14] MEDS ORDERED: IPRATROPIUM/ALBUTEROL 3 ML NEB INH PRN (21:23)
[2022-11-14] MEDS ORDERED: hydrALAZINE INJ 20 MG/ML VIAL IVP PRN (21:30)
--- NOTE | 2022-11-14 21:37 | HISTORY & PHYSICAL EXAMINATION ---
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 Patient reports symptoms for the past 1.5-2wks with initial loss of appetite. She subsequently noted progressive SOB and swelling in BLE. Patient currently has difficulty ambulating the same distance without SOB. She states no chest pain. She had an episode of palpitation more than a month ago that resolved without incident. She mentions no fever. No URIs symptoms. No n/v/d. No dysuria. No rash. No trauma. No change in medications. She reports weighing herself however she denies fluid restriction. She mentions having similar sxs before associated with worsening of her heart failure. Here in the ED, patient is noted for a retrocardic opacity on CXR without support for opacity. She is hypoxic with exertion to 88% while on RA. She has an elevated BNP in the 900s. History - Past Medical History Cardiovascular: reports: Congestive heart failure, Hypertension, High cholesterol, Coronary artery disease, Atrial fibrillation Respiratory: reports: Pneumonia Neuro: reports: Headaches, Migraines Endocrine/Autoimmune: reports: None GI: reports: Ulcers : reports: Incontinence, Kidney stones HEENT: reports: Chronic hearing loss, Other Musculoskeletal: reports: Osteoarthritis Derm: reports: None - Past Surgical History General: reports: Colonoscopy, Other Ortho: reports: Knee replacement, Shoulder arthroplasty, Carpal Tunnel surgery /MEDICARE INTERVIEWER: reports: Hysterectomy HEENT: reports: Tonsil/Adenoidectomy - Family & Social History Family History: Mother: , CAD, Father: , COPD/Emphysema, Sister: Cancer, Brother: Cancer Family History Comment/Other: Mother had CAD and CHF, Father had COPD, Sister had lung Cancer, and Brother had Colon Cancer Living Situation: Alone Social History Notes: The patient lives alone at [place] [facility] [place]. She is completely independent and uses a cane for walking. She still active in her garden. She has 4 children, one that in 2019 from suicide. Her remaining children live in [place] with her closest son in [place]. She moved to [facility] in 1997 with her to retired. Previous to that the pa nicky lives in [facility]. The patient worked for the [employer] in [employer]. The patient is and has a dog. Patient has never smoked she does not drink alcohol and denies any illicit drug use - Substance History Use: Uses substance without health or social issues: NONE - POLST Patient has POLST: No POLST Status: DNR Meds/Allgy - Home Medications Home Medications: Ambulatory Orders Medication Instructions Recorded Confirmed Calcium Carbonate [Calcium] 600 mg ORAL BID 12/23/16 03/14/21 Cholecalciferol (Vitamin D3) 50 mcg ORAL DAILY 12/23/16 03/14/21 [Vitamin D3] Multivitamin [Multiple Vitamins] 1 tab ORAL DAILY 12/23/16 03/14/21 Verapamil ER [Calan SA] 90 mg ORAL BID 12/23/16 06/23/17 Warfarin [Coumadin] 5 mg ORAL TUSA 12/23/16 03/14/21 Ferrous Sulfate 325 mg PO BID 03/14/21 03/14/21 Furosemide [Lasix] 40 mg PO DAILY 03/14/21 03/14/21 Losartan [Cozaar] 50 mg PO DAILY 03/14/21 03/14/21 Metoprolol Tartrate [Lopressor] 50 mg PO BID 03/14/21 03/14/21 Potassium Chloride 20 meq PO DAILY 03/14/21 03/14/21 Warfarin [Coumadin] 7.5 mg PO SUMOWETHFR 03/14/21 03/14/21 oxyBUTYnin chloride [Ditropan Xl] 10 mg PO DAILY 03/14/21 03/14/21 traMADol [Ultram] 100 mg PO BID 03/14/21 03/14/21 - Allergies Allergies/Adverse Reactions: Allergies Allergy/AdvReac Type Severity Reaction Status Date / Time adhesive tape Allergy Rash Verified 05/22/22 13:21 codeine Allergy Emesis Verified 03/14/21 17:40 Penicillins Allergy Rash Verified 03/14/21 17:40 Sulfa (Sulfonamide Allergy Emesis Verified 03/14/21 17:40 Antibiotics) Review of Systems - Constitutional Constitutional: reports: Fatigue, Poor appetite, Weight gain. denies: Fever - Cardiovascular Cariovascular: reports: Palpitations, Edema, Exertional dyspnea. denies: Chest pain, Orthopnea - Respiratory Respiratory: reports: SOB at rest, SOB with exertion. denies: Cough, Sputum production - Gastrointestinal Gastrointestinal: denies: Diarrhea, Nausea, Vomiting - Genitourinary Genitourinary: denies: Dysuria - Integumentary Integumentary: denies: Rash Exam - Vital Signs Reviewed Vital Signs: Yes Vital Signs: Vital Signs x48h Temp Pulse Resp BP Pulse Ox 11/14/22 21:18 83 14 130/75 97 11/14/22 20:55 37.0 C 68 23 140/81 H 88 L 11/14/22 20:24 72 17 132/62 H 98 11/14/22 19:21 37.0 C 81 23 136/81 H 97 - Physical Exam General Appearance: positive: No acute distress Eyes Bilateral: positive: Normal inspection ENT: positive: ENT inspection nml Neck: positive: Nml inspection Respiratory: positive: Rales. negative: Wheezes, Rhonchi Cardiovascular: positive: Systolic murmur Abdomen: positive: Non-tender, No distention. negative: Tenderness, Guarding, R ebound Skin: positive: Color nml Extremities: positive: Pedal edema Neurologic/Psychiatric: positive: Oriented x3, CN's nml (2-12), Motor nml, Sensation nml, Mood/affect nml Conclusion/Plan - Problem List (1) Acute exacerbation of CHF (congestive heart failure) Conclusion/Plan: acute on chronic HFmrEF. 45-50%. hx and sxs and labs support diagnosis of CHF exacerbation. ED gave patient a large dose IV Lasix 100mg. will continue diuresis with 40mg IV daily. BMP to monitor for electrolyte abn and renal injury. check cardiac enzymes - trop and BNP. update echo. monitor on tele. fluid restrict. daily weighing. I & O . Qualifiers: Heart failure type: diastolic Qualified Code(s): I50.33 - Acute on chronic diastolic (congestive) heart failure (2) Acute respiratory failure with hypoxia Conclusion/Plan: O2 saturation down 88% on RA c exertion. O2 support c NC. breathing treatment as needed. diurese patient in CHF exacerbation. (3) Atrial fibrillation, chronic Conclusion/Plan: rate controlled. opted to restart metoprolol but hold verapamil given CHF exacrbation. monitor on tele. cover hypercoagulable state 2/2 afib with warfarin but to hold at this time given supratherapeutic INR. RN can give once INR< 3 per parameter. (4) Hypertension Conclusion/Plan: controlled. cover with metoprolol. hold verapamil 2/2 CHF exacebation. hold Losartan out of concern for possible renal inury after Lasix 100mg. if no renal injury, then restart Losartan home med. prn coverage with hydralazine. (5) Supratherapeutic INR Conclusion/Plan: INR 3.5 on warfarin. no acute bleed noted and hgb/hct stable. cover hypercoagulable state 2/2 afib with warfarin but to hold at this time given supratherapeutic INR. RN can give once INR< 3 per parameter. - Lab Results Lab results reviewed: Yes Mau Bones: 11/14/22 19:43 11/14/22 20:09 - Diagnostic Imaging Results Diagnostic Imaging Results: positive: Final report reviewed Diagnostic Imaging Results Comments: CXR citing no opacity. there is retrocardiac atelectasis - EKG Results EKG Interpreted Independently: Yes EKG Findings: afib. HR 73. RBBB. no significant ST changes Core Measures - Anticipated LOS I expect patient to be DC'd or transferred within 96 hours.: No - Issues Hospital Issues and Management Plan: The patient consented to receive this telemedicine service, which I performed via live two-way audiovisual equipment. The patient is at ([facility]) and I am physically in [facility]. A nurse assisted me in the visit. - DVT/VTE - Prophylaxis VTE/DVT Device ordered at admit?: Yes Telemedicine Consult Details - Provider Location & Consult Time Telemedicine consultation conducted via videoconferencing?: Yes List names and roles of persons who participated in consult:: patient and RN Telemedicine provider location:: [facility] Time Telemedicine consult began:: 21:08 Time Telemedicine consult completed:: 22:08
[2022-11-14 21:39] LABS: B. PARAPERTUSSIS- RESP PCR PAN NOT DETECTED; B. PERTUSSIS- RESP PCR PANEL NOT DETECTED; C. PNEUMONIAE- RESP PCR PANEL NOT DETECTED; CORONAVIRUS 229E-RESP PCR NOT DETECTED; CORONAVIRUS HKU1-RESP PCR NOT DETECTED; CORONAVIRUS NL63-RESP PCR NOT DETECTED; CORONAVIRUS OC43-RESP PCR NOT DETECTED; HUMAN METAPNEUMOVIRUS NOT DETECTED; INFLUENZA A- RESP PCR PANEL NOT DETECTED; INFLUENZA B - RESP PCR PANEL NOT DETECTED; M. PNEUMONIAE- RESP PCR PANEL NOT DETECTED; PARAINFLUENZA VIRUS 1 NOT DETECTED; PARAINFLUENZA VIRUS 2 NOT DETECTED; PARAINFLUENZA VIRUS 3 NOT DETECTED; PARAINFLUENZA VIRUS 4 NOT DETECTED; RHINOVIRUS/ENTEROVIRUS NOT DETECTED; RSV- RESP PCR PANEL NOT DETECTED; SARS-CoV-2 -RESP PCR PANEL NOT DETECTED
[2022-11-14] MEDS: traMADol 50 MG TABLET PO PRN (22:43)
[2022-11-14] MEDS: SODIUM CHLORIDE FLUSH 0.9% 10 ML SYRINGE IVP SCH (22:44)
[2022-11-14] MEDS: METOPROLOL TARTRATE 50 MG TABLET PO SCH (22:44)
[2022-11-15 05:34] LABS: HCT - HEMATOCRIT 34.6 % (37.0-47.0); HGB - HEMOGLOBIN 11.5 g/dL (12.0-16.0); MEAN CORPUSCULAR HEMOGLOBIN 34.5 pg (27.0-31.0); MEAN CORPUSCULAR HGB CONC 33.2 g/dL (32.0-36.0); MEAN CORPUSCULAR VOLUME 103.9 fL (81.0-99.0); MEAN PLATELET VOLUME 9.2 fL (7.9-10.8); RED BLOOD COUNT 3.33 10^6/uL (4.20-5.40); RED CELL DISTRIBUTION WIDTH 14.9 % (12.0-15.0); WHITE BLOOD COUNT 4.4 x10^3/uL (4.8-10.8)
[2022-11-15 05:45] LABS: INR 2.9 (0.8-1.2); PT - PROTHROMBIN TIME 30.3 secs (9.9-12.6)
[2022-11-15 05:48] LABS: BUN - BLOOD UREA NITROGEN 40 mg/dL (6-20); CALCIUM 9.3 mg/dL (8.5-10.3); CARBON DIOXIDE - CO2 28 mmol/L (21-32); GFR - MDRD 53 (>89); GLUCOSE 85 mg/dL (70-100); IONIZED CALCIUM IF INDICATED NO; MAGNESIUM 1.9 mg/dL (1.7-2.8); PHOSPHORUS 3.1 mg/dL (2.5-4.6); POTASSIUM 3.8 mmol/L (3.5-5.0); SODIUM 137 mmol/L (135-145)
[2022-11-15] MEDS: ACETAMINOPHEN 325 MG TABLET PO PRN (06:19)
--- NOTE | 2022-11-15 06:24 | PROVIDER PROGRESS NOTE ---
Public Welfare Worker Note - Public Welfare Worker Note Public Welfare Worker Note: RN reports troponin 79.6. Patient admitted for CHF exacerbation. No chest pain on presentation. Likely type 2 [place] related to CHF exacerbation. address CHF exacerbation. trend troponin. tele monitoring. followup echo. Larissa Valero DO Internal Medicine [employer] Tele Public Welfare Worker
[2022-11-15] MEDS ORDERED: ZINC OXIDE 20% OINT 30 GM TUBE TOP PRN (08:17)
[2022-11-15] MEDS: METOPROLOL TARTRATE 50 MG TABLET PO SCH ×2 (08:53→21:08)
[2022-11-15] MEDS: SOLIFENACIN SUCCINATE 5 MG TABLET PO SCH (08:53)
[2022-11-15] MEDS: CHOLECALCIFEROL 25 MCG TABLET PO SCH (08:53)
[2022-11-15] MEDS: POTASSIUM CHLORIDE 10 MEQ CAPSULE PO SCH (08:53)
[2022-11-15] MEDS: SODIUM CHLORIDE FLUSH 0.9% 10 ML SYRINGE IVP SCH ×3 (08:58→23:56)
[2022-11-15] MEDS: FUROSEMIDE 40 MG/4 ML VIAL IVP SCH (08:58)
[2022-11-15] MEDS: MULTIVITAMIN TABLET PO SCH (08:58)
[2022-11-15] MEDS ORDERED: CALCIUM CARB (OYSTER SHELL) 500 MG TABLET PO SCH ×2 (09:00→10:20)
[2022-11-15] MEDS ORDERED: FERROUS SULFATE 325 MG TABLET PO SCH (09:00)
--- NOTE | 2022-11-15 10:42 | PHARMACY PROGRESS NOTE ---
- Best Possible Medication History Admit Date and Time: 11/14/222118 Processed by: Pharmacy Medication History completed: Yes Patient Interview: Completed Secondary Source(s): Pharmacy records, Insurance records As the person ultimately responsible for medication therapy, providers are able to order a medication from an existing home medication list in [facility] via the "Reconcile Routine" prior to Confirmation of that medication by media production support manager. Such practice is discouraged except when the physician, in their clinical judgment, deems that a medical need exists for a medication without regard to previous use.
--- NOTE | 2022-11-15 10:52 | PHARMACY PROGRESS NOTE ---
- Monitoring Indication for anticoagulation: Atrial Fibrillation Goal INR: 2-3 Previous home regime: 7.5 mg on Mo,We,Fr. 5 mg all other days Potentially interacting medications: Tramadol, Tylenol, Melatonin Other anticoagulation: None Risk factors for bleed: Hypertension, Heart disease or [place], Age >65 - Recommendations Dosing: Anticoagulation Monitoring 11/15/22 11/15/22 11/14/22 05:14 05:14 20:09 Hgb 11.5 L Hct 34.6 L PT 30.3 H 35.4 H INR 2.9 H 3.4 H 11/14/22 19:43 Hgb 12.4 Hct 37.6 PT INR Last Dose Given: S&S of bleedin.5 mg on Mo, We, Fr. 5 mg all other days. Pharmacy recommendation: Continue current regime
[2022-11-15 13:39] LABS: CHLORIDE 100 mmol/L (101-111)
--- NOTE | 2022-11-15 14:22 | PROVIDER PROGRESS NOTE ---
Assessment/Plan - Problem List (1) Acute exacerbation of CHF (congestive heart failure) Qualifiers: Heart failure type: combined systolic and diastolic Qualified Code(s): I50.43 - Acute on chronic combined systolic (congestive) and diastolic (congestive) heart failure Assessment/Plan: Conclusion/Plan: acute on chronic HFmrEF. 45-50%. hx and sxs and labs support diagnosis of CHF exacerbation. ED gave patient a large dose IV Lasix 100mg. will continue diuresis with 40mg IV daily. BMP to monitor for electrolyte abn and renal injury. check cardiac enzymes - trop and BNP. update echo. monitor on tele. fluid restrict. daily weighing. I & O . Qualifiers: Heart failure type: diastolic Qualified Code(s): I50.33 - Acute on chronic diastolic (congestive) heart failure (2) Acute respiratory failure with hypoxia Conclusion/Plan: O2 saturation down 88% on RA c exertion. O2 support c NC. breathing treatment as needed. diurese patient in CHF exacerbation. (3) Atrial fibrillation, chronic Conclusion/Plan: rate controlled. opted to restart metoprolol but hold verapamil given CHF exacrbation. monitor on tele. cover hypercoagulable state 2/2 afib with warfarin but to hold at this time given supratherapeutic INR. RN can give once INR< 3 per parameter. (4) Hypertension Conclusion/Plan: controlled. cover with metoprolol. hold verapamil 2/2 CHF exacebation. hold Losartan out of concern for possible renal inury after Lasix 100mg. if no renal injury, then restart Losartan home med. prn coverage with hydralazine. (5) Supratherapeutic INR Conclusion/Plan: INR 3.5 on warfarin. no acute bleed noted and hgb/hct stable. cover hypercoagulable state 2/2 afib with warfarin but to hold at this time given supratherapeutic INR. RN can give once INR< 3 per parameter. (2) Elevated troponin Assessment/Plan: Patient's troponin was found to be elevated there have been serial checks and they are not increasing. Suspect secondary to her progressive congestive heart failure which has not been treated she has elevated troponin secondary to congestive heart failure. - Current Meds Current Meds: Current Medications Generic Name Dose Route Start Last Admin Trade Name Freq PRN Reason Stop Dose Admin Acetaminophen 650 mg 11/14/22 21:19 11/15/22 06:19 Acetaminophen 325 Mg Tablet PO 650 mg Q4HR PRN Administration Pain 1 to 4, or Fever Cholecalciferol 50 mcg 11/15/22 09:00 11/15/22 08:53 Cholecalciferol 25 Mcg Tablet PO 50 mcg DAILY YOJANA Administration Furosemide 40 mg 11/15/22 09:00 11/15/22 08:58 Furosemide 40 Mg/4 Ml Vial IVP 40 mg DAILY YOJANA Administration Metoprolol Tartrate 50 mg 11/14/22 22:00 11/15/22 08:53 Metoprolol Tartrate 50 Mg Tablet PO 50 mg BID YOJANA Administration Multivitamins 1 tab 11/15/22 08:00 11/15/22 08:58 Multivitamin Tablet PO 1 tab DAILYWM YOJANA Administration Potassium Chloride 20 meq 11/15/22 09:00 11/15/22 08:53 Potassium Chloride 10 Meq Capsule PO 20 meq DAILY YOJANA Administration Sodium Chloride 10 ml 11/15/22 01:00 11/15/22 08:58 Sodium Chloride Flush 0.9% 10 Ml Syringe IVP 10 ml 0100,0900,1700 YOJANA Administration Solifenacin 10 mg 11/15/22 09:00 11/15/22 08:53 Solifenacin Succinate 5 Mg Tablet PO 10 mg DAILY YOJANA Administration Tramadol HCl 100 mg 11/14/22 21:08 11/14/22 22:43 Tramadol 50 Mg Tablet PO 100 mg BID PRN Administration PAIN 5-7 - Lab Result Fish Bone Diagrams: 11/15/22 05:14 11/15/22 05:14 - Additional Planning My Orders: My Active Orders 11/15/22 17:00 Warfarin [Coumadin] 2.5 mg PO MoWeFr@1700 Warfarin [Coumadin] 5 mg PO 1700 Subjective - Subjective Patient Reports: Feeling Better, Resting Comfortably, Other (Patient notes decreased lower extremity edema since starting IV diuretics) Nursing Reports: No Complaints Objective Vital Signs: Vital Signs - 24 hr 11/14/22 11/14/22 11/14/22 19:21 20:24 20:55 Temperature 37.0 C 37.0 C Heart Rate 81 72 68 Heart Rate [ Brachial] Respiratory 23 17 23 Rate Blood Pressure 136/81 H 132/62 H 140/81 H Blood Pressure [Left Brachial artery] Blood Pressure [Right Brachial artery] O2 Saturation 97 98 88 L 05/25/23 05/25/23 05/25/23 21:18 21:43 22:03 Temperature 36.3 C L Heart Rate 83 63 Heart Rate [ 77 Brachial] Respiratory 14 14 20 Rate Blood Pressure 130/75 130/64 Blood Pressure [Left Brachial artery] Blood Pressure 142/81 H [Right Brachial artery] O2 Saturation 97 94 100 11/14/22 11/14/22 11/15/22 22:44 23:48 03:59 Temperature 36.6 C 36.5 C Heart Rate Heart Rate [ 57 L 71 Brachial] Respiratory 18 18 Rate Blood Pressure 142/81 H Blood Pressure 128/75 139/67 H [Left Brachial artery] Blood Pressure [Right Brachial artery] O2 Saturation 97 95 11/15/22 11/15/22 11/15/22 06:10 08:20 08:53 Temperature 36.4 C L Heart Rate Heart Rate [ 71 74 Brachial] Respiratory 18 18 Rate Blood Pressure 109/58 L Blood Pressure 125/68 118/66 [Left Brachial artery] Blood Pressure [Right Brachial artery] O2 Saturation 93 Oxygen O2 Source Room air I&O (Last 24 Hrs): Intake and Output Totals x24h 11/13/22 11/14/22 11/15/22 23:59 23:59 23:59 Intake Total 790 Output Total 4100 Balance -3310 General: Alert, Oriented x3, Cooperative HEENT: Atraumatic Neck: Supple Neuro: Alert Cardiovascular: Regular rate Respiratory: No respiratory distress, Breath sounds nml Abdomen: Normal bowel sounds Extremities: Other (Trace to 1+ bilateral pedal edema) - Results Results: Laboratory Results WBC 4.4 x10^3/uL (4.8-10.8) L 11/15/22 05:14 RBC 3.33 10^6/uL (4.20-5.40) L 11/15/22 05:14 Hgb 11.5 g/dL (12.0-16.0) L 11/15/22 05:14 Hct 34.6 % (37.0-47.0) L 11/15/22 05:14 MCV 103.9 fL (81.0-99.0) H 11/15/22 05:14 MCH 34.5 pg (27.0-31.0) H 11/15/22 05:14 MCHC 33.2 g/dL (32.0-36.0) 11/15/22 05:14 RDW 14.9 % (12.0-15.0) 11/15/22 05:14 Plt Count 186 10^3/uL (130-450) 11/15/22 05:14 MPV 9.2 fL (7.9-10.8) 11/15/22 05:14 Neut # (Auto) 3.2 10^3/uL (1.5-6.6) 11/14/22 19:43 Lymph # (Auto) 0.9 10^3/uL (1.5-3.5) L 11/14/22 19:43 Ferry # (Auto) 0.6 10^3/uL (0.0-1.0) 11/14/22 19:43 Eos # (Auto) 0.1 10^3/uL (0.0-0.7) 11/14/22 19:43 Baso # (Auto) 0.1 10^3/uL (0.0-0.1) 11/14/22 19:43 Absolute Nucleated RBC 0.00 x10^3/uL 11/14/22 19:43 Nucleated RBC % 0.0 /100WBC 11/14/22 19:43 PT 30.3 secs (9.9-12.6) H 11/15/22 05:14 INR 2.9 (0.8-1.2) H 11/15/22 05:14 VBG pH 7.463 (7.31-7.41) H 11/14/22 19:43 VBG pCO2 32.8 mmHg (41-51) L 11/14/22 19:43 VBG pO2 64.2 mmHg (25-47) H 11/14/22 19:43 VBG HCO3 23.0 mmol/L (23-28) 11/14/22 19:43 VBG Total CO2 24.0 mmol/L (24-29) 11/14/22 19:43 VBG O2 Saturation 94.2 % (60-80) H 11/14/22 19:43 VBG Base Excess -0.1 mmol/L (-2 - +2) 11/14/22 19:43 Sodium 137 mmol/L (135-145) 11/15/22 05:14 Potassium 3.8 mmol/L (3.5-5.0) 11/15/22 05:14 Chloride 100 mmol/L (101-111) L 11/15/22 05:14 Carbon Dioxide 28 mmol/L (21-32) 11/15/22 05:14 Anion Gap Not Reportable 11/15/22 05:14 BUN 40 mg/dL (6-20) H 11/15/22 05:14 Creatinine 1.0 mg/dL (0.4-1.0) 11/15/22 05:14 Estimated GFR (MDRD) 53 (>89) L 11/15/22 05:14 Glucose 85 mg/dL (70-100) 11/15/22 05:14 Calcium 9.3 mg/dL (8.5-10.3) 11/15/22 05:14 Ionized Calcium NO 11/15/22 05:14 Phosphorus 3.1 mg/dL (2.5-4.6) 11/15/22 05:14 Magnesium 1.9 mg/dL (1.7-2.8) 11/15/22 05:14 Total Bilirubin 0.9 mg/dL (0.2-1.0) 11/14/22 20:09 AST 49 IU/L (10-42) H 11/14/22 20:09 ALT 34 IU/L (10-60) 11/14/22 20:09 Alkaline Phosphatase 86 IU/L (42-121) 11/14/22 20:09 Troponin I High Sens 80.4 ng/L (2.3-14.8) H* 11/15/22 10:58 B-Natriuretic Peptide 990 pg/mL (5-100) H 11/15/22 05:14 Total Protein 7.5 g/dL (6.7-8.2) 11/14/22 20:09 Albumin 4.5 g/dL (3.2-5.5) 11/14/22 20:09 Globulin 3.0 g/dL (2.1-4.2) 11/14/22 20:09 Albumin/Globulin Ratio 1.5 (1.0-2.2) 11/14/22 20:09 Lipase 46 U/L (22-51) 11/14/22 20:09 Vitamin B12 312 pg/mL (180-914) 11/15/22 10:58 Folate 45.00 ng/mL (5.90 - >24.8) 11/15/22 10:58 Nasal Adenovirus (PCR) NOT DETECTED 11/14/22 20:14 Nasal B. parapertussis DNA (PCR) NOT DETECTED 11/14/22 20:14 Nasal Coronavir 229E PCR NOT DETECTED 11/14/22 20:14 Nasal Coronavir HKU1 PCR NOT DETECTED 11/14/22 20:14 Nasal Coronavir NL63 PCR NOT DETECTED 11/14/22 20:14 Nasal Coronavir OC43 PCR NOT DETECTED 11/14/22 20:14 Nasal Enterovir/Rhinovir PCR NOT DETECTED 11/14/22 20:14 Nasal Influenza B PCR NOT DETECTED 11/14/22 20:14 Nasal Influenza A PCR NOT DETECTED 11/14/22 20:14 Nasal Parainfluen 1 PCR NOT DETECTED 11/14/22 20:14 Nasal Parainfluen 2 PCR NOT DETECTED 11/14/22 20:14 Nasal Parainfluen 3 PCR NOT DETECTED 11/14/22 20:14 Nasal Parainfluen 4 PCR NOT DETECTED 11/14/22 20:14 Nasal RSV (PCR) NOT DETECTED 11/14/22 20:14 Nasal B.pertussis DNA PCR NOT DETECTED 11/14/22 20:14 Nasal C.pneumoniae (PCR) NOT DETECTED 11/14/22 20:14 Pierre Human Metapneumo PCR NOT DETECTED 11/14/22 20:14 Nasal M.pneumoniae (PCR) NOT DETECTED 11/14/22 20:14 Nasal SARS-CoV-2 (PCR) NOT DETECTED 11/14/22 20:14 ABX Reporting Has patient been on IV antibiotics over the past 48 hours?: No
[2022-11-15] MEDS ORDERED: BENZOCAINE/MENTHOL LOZENGE MM PRN (14:36)
[2022-11-15] MEDS: FERROUS SULFATE 325 MG TABLET PO SCH (16:22)
[2022-11-15] MEDS: WARFARIN 5 MG TABLET PO SCH (16:22)
[2022-11-15] MEDS: WARFARIN 2.5 MG TABLET PO SCH (16:22)
[2022-11-15] MEDS: traMADol 50 MG TABLET PO PRN (23:50)
[2022-11-16] MEDS: ACETAMINOPHEN 325 MG TABLET PO PRN (04:54)
[2022-11-16 05:56] LABS: HCT - HEMATOCRIT 35.5 % (37.0-47.0); HGB - HEMOGLOBIN 11.7 g/dL (12.0-16.0); MEAN CORPUSCULAR HEMOGLOBIN 34.2 pg (27.0-31.0); MEAN CORPUSCULAR VOLUME 103.8 fL (81.0-99.0); MEAN PLATELET VOLUME 9.1 fL (7.9-10.8); RED BLOOD COUNT 3.42 10^6/uL (4.20-5.40); RED CELL DISTRIBUTION WIDTH 14.6 % (12.0-15.0); WHITE BLOOD COUNT 3.9 x10^3/uL (4.8-10.8)
[2022-11-16 06:02] LABS: INR 2.1 (0.8-1.2); PT - PROTHROMBIN TIME 22.5 secs (9.9-12.6)
[2022-11-16 06:03] LABS: BUN - BLOOD UREA NITROGEN 35 mg/dL (6-20); CALCIUM 9.2 mg/dL (8.5-10.3); CARBON DIOXIDE - CO2 31 mmol/L (21-32); CHLORIDE 98 mmol/L (101-111); CREATININE 0.9 mg/dL (0.4-1.0); GFR - MDRD 60 (>89); GLUCOSE 85 mg/dL (70-100); IONIZED CALCIUM IF INDICATED NO; POTASSIUM 3.8 mmol/L (3.5-5.0); SODIUM 139 mmol/L (135-145)
[2022-11-16] MEDS: FUROSEMIDE 40 MG/4 ML VIAL IVP SCH (08:25)
[2022-11-16] MEDS: SOLIFENACIN SUCCINATE 5 MG TABLET PO SCH (08:25)
[2022-11-16] MEDS: traMADol 50 MG TABLET PO SCH ×2 (08:26→20:29)
[2022-11-16] MEDS: CHOLECALCIFEROL 25 MCG TABLET PO SCH (08:26)
[2022-11-16] MEDS: MULTIVITAMIN TABLET PO SCH (08:26)
[2022-11-16] MEDS: METOPROLOL TARTRATE 50 MG TABLET PO SCH (08:26)
[2022-11-16] MEDS: POTASSIUM CHLORIDE 10 MEQ CAPSULE PO SCH (08:26)
[2022-11-16] MEDS: FERROUS SULFATE 325 MG TABLET PO SCH ×2 (08:26→16:45)
[2022-11-16] MEDS: SODIUM CHLORIDE FLUSH 0.9% 10 ML SYRINGE IVP SCH ×3 (08:27→20:29)
--- NOTE | 2022-11-16 11:23 | PROVIDER PROGRESS NOTE ---
Assessment/Plan - Problem List (1) Acute exacerbation of CHF (congestive heart failure) Qualifiers: Heart failure type: combined systolic and diastolic Qualified Code(s): I50.43 - Acute on chronic combined systolic (congestive) and diastolic (congestive) heart failure Assessment/Plan: (1) Acute exacerbation of CHF (congestive heart failure) Qualifiers: Heart failure type: combined systolic and diastolic Qualified Code(s): I50.43 - Acute on chronic combined systolic (congestive) and diastolic (congestive) heart failure - Current Meds Current Meds: Current Medications Generic Name Dose Route Start Last Admin Trade Name Freq PRN Reason Stop Dose Admin Acetaminophen 650 mg 11/14/22 21:19 11/16/22 04:54 Acetaminophen 325 Mg Tablet PO 650 mg Q4HR PRN Administration Pain 1 to 4, or Fever Cholecalciferol 50 mcg 11/15/22 09:00 11/16/22 08:26 Cholecalciferol 25 Mcg Tablet PO 50 mcg DAILY YOJANA Administration Ferrous Sulfate 325 mg 11/15/22 10:20 11/16/22 08:26 Ferrous Sulfate 325 Mg Tablet PO 325 mg 0800,1700 YOJANA Administration Furosemide 40 mg 11/15/22 09:00 11/16/22 08:25 Furosemide 40 Mg/4 Ml Vial IVP 40 mg DAILY YOJANA Administration Metoprolol Tartrate 50 mg 11/14/22 22:00 11/16/22 08:26 Metoprolol Tartrate 50 Mg Tablet PO 50 mg BID YOJANA Administration Multivitamins 1 tab 11/15/22 08:00 11/16/22 08:26 Multivitamin Tablet PO 1 tab DAILYWM YOJANA Administration Potassium Chloride 20 meq 11/15/22 09:00 11/16/22 08:26 Potassium Chloride 10 Meq Capsule PO 20 meq DAILY YOJANA Administration Sodium Chloride 10 ml 11/15/22 01:00 11/16/22 08:27 Sodium Chloride Flush 0.9% 10 Ml Syringe IVP 10 ml 0100,0900,1700 YOJANA Administration Solifenacin 10 mg 11/15/22 09:00 11/16/22 08:25 Solifenacin Succinate 5 Mg Tablet PO 10 mg DAILY YOJANA Administration Tramadol HCl 100 mg 11/16/22 08:00 11/16/22 08:26 Tramadol 50 Mg Tablet PO 100 mg BID YOJANA Administration Warfarin Sodium 2.5 mg 11/15/22 17:00 11/15/22 16:22 Warfarin 2.5 Mg Tablet PO 2.5 mg MoWeFr@1700 [facility] Administration Warfarin Sodium 5 mg 11/15/22 17:00 11/15/22 16:22 Warfarin 5 Mg Tablet PO 5 mg 1700 [facility] Administration - Lab Result Fish Bone Diagrams: 11/16/22 05:14 11/16/22 05:14 - Additional Planning My Orders: My Active Orders 11/15/22 14:36 Benzocaine/Menthol [Cepacol] 1 lozenge MM Q2HR PRN 11/15/22 17:00 Warfarin [Coumadin] 2.5 mg PO MoWeFr@1700 Warfarin [Coumadin] 5 mg PO 1700 11/16/22 08:00 traMADol [Ultram] 100 mg PO BID 11/17/22 05:00 BMP, RFLX TO IONIZED CA IF [CHEM] DAILYLAB MAGNESIUM [CHEM] DAILYLAB 11/18/22 05:00 BMP, RFLX TO IONIZED CA IF [CHEM] DAILYLAB MAGNESIUM [CHEM] DAILYLAB 11/19/22 05:00 BMP, RFLX TO IONIZED CA IF [CHEM] DAILYLAB MAGNESIUM [CHEM] DAILYLAB Objective Vital Signs: Vital Signs - 24 hr 11/15/22 11/15/22 11/15/22 16:10 21:01 21:08 Temperature 36.7 C 36.7 C Heart Rate [ 86 79 Brachial] Respiratory 18 20 Rate Blood Pressure 114/61 Blood Pressure 130/77 114/61 [Right Brachial artery] O2 Saturation 100 79 L 11/16/22 11/16/22 11/16/22 01:00 05:11 07:45 Temperature 36.6 C 36.6 C 36.6 C Heart Rate [ 71 74 78 Brachial] Respiratory 16 16 18 Rate Blood Pressure Blood Pressure 126/81 H 118/70 119/62 [Right Brachial artery] O2 Saturation 94 92 95 11/16/22 08:26 Temperature Heart Rate [ Brachial] Respiratory Rate Blood Pressure 119/62 Blood Pressure [Right Brachial artery] O2 Saturation Oxygen O2 Source Room air I&O (Last 24 Hrs): Intake and Output Totals x24h 11/14/22 11/15/22 11/16/22 23:59 23:59 23:59 Intake Total 1290 240 Output Total 5250 1900 Balance -4385 -4311 - Results Results: Laboratory Results WBC 3.9 x10^3/uL (4.8-10.8) L 11/16/22 05:14 RBC 3.42 10^6/uL (4.20-5.40) L 11/16/22 05:14 Hgb 11.7 g/dL (12.0-16.0) L 11/16/22 05:14 Hct 35.5 % (37.0-47.0) L 11/16/22 05:14 MCV 103.8 fL (81.0-99.0) H 11/16/22 05:14 MCH 34.2 pg (27.0-31.0) H 11/16/22 05:14 MCHC 33.0 g/dL (32.0-36.0) 11/16/22 05:14 RDW 14.6 % (12.0-15.0) 11/16/22 05:14 Plt Count 196 10^3/uL (130-450) 11/16/22 05:14 MPV 9.1 fL (7.9-10.8) 11/16/22 05:14 Neut # (Auto) 3.2 10^3/uL (1.5-6.6) 11/14/22 19:43 Lymph # (Auto) 0.9 10^3/uL (1.5-3.5) L 11/14/22 19:43 [place] # (Auto) 0.6 10^3/uL (0.0-1.0) 11/14/22 19:43 Eos # (Auto) 0.1 10^3/uL (0.0-0.7) 11/14/22 19:43 Baso # (Auto) 0.1 10^3/uL (0.0-0.1) 11/14/22 19:43 Absolute Nucleated RBC 0.00 x10^3/uL 11/14/22 19:43 Nucleated RBC % 0.0 /100WBC 11/14/22 19:43 PT 22.5 secs (9.9-12.6) H 11/16/22 05:14 INR 2.1 (0.8-1.2) H 11/16/22 05:14 VBG pH 7.463 (7.31-7.41) H 11/14/22 19:43 VBG pCO2 32.8 mmHg (41-51) L 11/14/22 19:43 VBG pO2 64.2 mmHg (25-47) H 11/14/22 19:43 VBG HCO3 23.0 mmol/L (23-28) 11/14/22 19:43 VBG Total CO2 24.0 mmol/L (24-29) 11/14/22 19:43 VBG O2 Saturation 94.2 % (60-80) H 11/14/22 19:43 VBG Base Excess -0.1 mmol/L (-2 - +2) 11/14/22 19:43 Sodium 139 mmol/L (135-145) 11/16/22 05:14 Potassium 3.8 mmol/L (3.5-5.0) 11/16/22 05:14 Chloride 98 mmol/L (101-111) L 11/16/22 05:14 Carbon Dioxide 31 mmol/L (21-32) 11/16/22 05:14 Anion Gap 10.0 (6-13) 11/16/22 05:14 BUN 35 mg/dL (6-20) H 11/16/22 05:14 Creatinine 0.9 mg/dL (0.4-1.0) 11/16/22 05:14 Estimated GFR (MDRD) 60 (>89) L 11/16/22 05:14 Glucose 85 mg/dL (70-100) 11/16/22 05:14 Calcium 9.2 mg/dL (8.5-10.3) 11/16/22 05:14 Ionized Calcium NO 11/16/22 05:14 Phosphorus 3.1 mg/dL (2.5-4.6) 11/15/22 05:14 Magnesium 2.1 mg/dL (1.7-2.8) 11/16/22 05:14 Total Bilirubin 0.9 mg/dL (0.2-1.0) 11/14/22 20:09 AST 49 IU/L (10-42) H 11/14/22 20:09 ALT 34 IU/L (10-60) 11/14/22 20:09 Alkaline Phosphatase 86 IU/L (42-121) 11/14/22 20:09 Troponin I High Sens 80.4 ng/L (2.3-14.8) H* 11/15/22 10:58 B-Natriuretic Peptide 990 pg/mL (5-100) H 11/15/22 05:14 Total Protein 7.5 g/dL (6.7-8.2) 11/14/22 20:09 Albumin 4.5 g/dL (3.2-5.5) 11/14/22 20:09 Globulin 3.0 g/dL (2.1-4.2) 11/14/22 20:09 Albumin/Globulin Ratio 1.5 (1.0-2.2) 11/14/22 20:09 Lipase 46 U/L (22-51) 11/14/22 20:09 Vitamin B12 312 pg/mL (180-914) 11/15/22 10:58 Folate 45.00 ng/mL (5.90 - >24.8) 11/15/22 10:58 Nasal Adenovirus (PCR) NOT DETECTED 11/14/22 20:14 Nasal B. parapertussis DNA (PCR) NOT DETECTED 11/14/22 20:14 Nasal Coronavir 229E PCR NOT DETECTED 11/14/22 20:14 Nasal Coronavir HKU1 PCR NOT DETECTED 11/14/22 20:14 Nasal Coronavir NL63 PCR NOT DETECTED 11/14/22 20:14 Nasal Coronavir OC43 PCR NOT DETECTED 11/14/22 20:14 Nasal Enterovir/Rhinovir PCR NOT DETECTED 11/14/22 20:14 Nasal Influenza B PCR NOT DETECTED 11/14/22 20:14 Nasal Influenza A PCR NOT DETECTED 11/14/22 20:14 Nasal Parainfluen 1 PCR NOT DETECTED 11/14/22 20:14 Nasal Parainfluen 2 PCR NOT DETECTED 11/14/22 20:14 Nasal Parainfluen 3 PCR NOT DETECTED 11/14/22 20:14 Nasal Parainfluen 4 PCR NOT DETECTED 11/14/22 20:14 Nasal RSV (PCR) NOT DETECTED 11/14/22 20:14 Nasal B.pertussis DNA PCR NOT DETECTED 11/14/22 20:14 Nasal C.pneumoniae (PCR) NOT DETECTED 11/14/22 20:14 [place] Human Metapneumo PCR NOT DETECTED 11/14/22 20:14 Nasal M.pneumoniae (PCR) NOT DETECTED 11/14/22 20:14 Nasal SARS-CoV-2 (PCR) NOT DETECTED 11/14/22 20:14
--- NOTE | 2022-11-16 11:23 | PROVIDER PROGRESS NOTE ---
Assessment/Plan - Problem List (1) Acute exacerbation of CHF (congestive heart failure) Qualifiers: Heart failure type: combined systolic and diastolic Qualified Code(s): I50.43 - Acute on chronic combined systolic (congestive) and diastolic (congestive) heart failure Assessment/Plan: ((1) Acute exacerbation of CHF (congestive heart failure) Qualifiers: Heart failure type: combined systolic and diastolic Qualified Code(s): I50.43 - Acute on chronic combined systolic (congestive) and diastolic (congestive) heart failure Assessment/Plan: Conclusion/Plan: acute on chronic HFmrEF. 45-50%. hx and sxs and labs support diagnosis of CHF exacerbation. ED gave patient a large dose IV Lasix 100mg. will continue diuresis with 40mg IV daily. BMP to monitor for electrolyte abn and renal injury. check cardiac enzymes - trop and BNP. update echo. monitor on tele. fluid restrict. daily weighing. I & O . Qualifiers: Heart failure type: diastolic Qualified Code(s): I50.33 - Acute on chronic diastolic (congestive) heart failure (2) Acute respiratory failure with hypoxia Conclusion/Plan: O2 saturation down 88% on RA c exertion. O2 support c NC. breathing treatment as needed. diurese patient in CHF exacerbation. (3) Atrial fibrillation, chronic Conclusion/Plan: rate controlled. opted to restart metoprolol but hold verapamil given CHF exacrbation. monitor on tele. cover hypercoagulable state 2/2 afib with warfarin but to hold at this time given supratherapeutic INR. RN can give once INR< 3 per parameter. (4) Hypertension Conclusion/Plan: controlled. cover with metoprolol. hold verapamil 2/2 CHF exacebation. hold Losartan out of concern for possible renal inury after Lasix 100mg. if no renal injury, then restart Losartan home med. prn coverage with hydralazine. (5) Supratherapeutic INR Conclusion/Plan: INR 3.5 on warfarin. no acute bleed noted and hgb/hct stable. cover hypercoagulable state 2/2 afib with warfarin but to hold at this time given supratherapeutic INR. RN can give once INR< 3 per parameter. (2) Elevated troponin Assessment/Plan: Patient's troponin was found to be elevated there have been serial checks and they are not increasing. Suspect secondary to her progressive congestive heart failure which has not been treated she has elevated troponin secondary to congestive heart failure. - Current Meds Current Meds: Current Medications Generic Name Dose Route Start Last Admin Trade Name Micah PRN Reason Stop Dose Admin Acetaminophen 650 mg 11/14/22 21:19 11/16/22 04:54 Acetaminophen 325 Mg Tablet PO 650 mg Q4HR PRN Administration Pain 1 to 4, or Fever Cholecalciferol 50 mcg 11/15/22 09:00 11/16/22 08:26 Cholecalciferol 25 Mcg Tablet PO 50 mcg DAILY YOJANA Administration Ferrous Sulfate 325 mg 11/15/22 10:20 11/16/22 08:26 Ferrous Sulfate 325 Mg Tablet PO 325 mg 0800,1700 YOJANA Administration Furosemide 40 mg 11/15/22 09:00 11/16/22 08:25 Furosemide 40 Mg/4 Ml Vial IVP 40 mg DAILY YOJANA Administration Metoprolol Tartrate 50 mg 11/14/22 22:00 11/16/22 08:26 Metoprolol Tartrate 50 Mg Tablet PO 50 mg BID YOJANA Administration Multivitamins 1 tab 11/15/22 08:00 11/16/22 08:26 Multivitamin Tablet PO 1 tab DAILYWM YOJANA Administration Potassium Chloride 20 meq 11/15/22 09:00 11/16/22 08:26 Potassium Chloride 10 Meq Capsule PO 20 meq DAILY YOJANA Administration Sodium Chloride 10 ml 11/15/22 01:00 11/16/22 08:27 Sodium Chloride Flush 0.9% 10 Ml Syringe IVP 10 ml 0100,0900,1700 YOJANA Administration Solifenacin 10 mg 11/15/22 09:00 11/16/22 08:25 Solifenacin Succinate 5 Mg Tablet PO 10 mg DAILY YOJANA Administration Tramadol HCl 100 mg 11/16/22 08:00 11/16/22 08:26 Tramadol 50 Mg Tablet PO 100 mg BID YOJANA Administration Warfarin Sodium 2.5 mg 11/15/22 17:00 11/15/22 16:22 Warfarin 2.5 Mg Tablet PO 2.5 mg MoWeFr@1700 YOJANA Administration Warfarin Sodium 5 mg 11/15/22 17:00 11/15/22 16:22 Warfarin 5 Mg Tablet PO 5 mg 1700 YOJANA Administration - Lab Result Fish Bone Diagrams: 11/16/22 05:14 11/16/22 05:14 - Additional Planning My Orders: My Active Orders 11/15/22 14:36 Benzocaine/Menthol [Cepacol] 1 lozenge MM Q2HR PRN 11/15/22 17:00 Warfarin [Coumadin] 2.5 mg PO MoWeFr@1700 Warfarin [Coumadin] 5 mg PO 1700 11/16/22 08:00 traMADol [Ultram] 100 mg PO BID 11/17/22 05:00 BMP, RFLX TO IONIZED CA IF [CHEM] DAILYLAB MAGNESIUM [CHEM] DAILYLAB 11/18/22 05:00 BMP, RFLX TO IONIZED CA IF [CHEM] DAILYLAB MAGNESIUM [CHEM] DAILYLAB 11/19/22 05:00 BMP, RFLX TO IONIZED CA IF [CHEM] DAILYLAB MAGNESIUM [CHEM] DAILYLAB Subjective - Subjective Patient Reports: Other (Patient has noted improvement in her breathing. She does note she had an episode yesterday evening of getting somewhat agitated and thought that was because she missed a dose of tramadol she usually takes it twice daily it was ordered this morning that way. She does note that she had similar sympt) Objective Vital Signs: Vital Signs - 24 hr 11/15/22 11/15/22 11/15/22 16:10 21:01 21:08 Temperature 36.7 C 36.7 C Heart Rate [ 86 79 Brachial] Respiratory 18 20 Rate Blood Pressure 114/61 Blood Pressure 130/77 114/61 [Right Brachial artery] O2 Saturation 100 79 L 11/16/22 11/16/22 11/16/22 01:00 05:11 07:45 Temperature 36.6 C 36.6 C 36.6 C Heart Rate [ 71 74 78 Brachial] Respiratory 16 16 18 Rate Blood Pressure Blood Pressure 126/81 H 118/70 119/62 [Right Brachial artery] O2 Saturation 94 92 95 11/16/22 08:26 Temperature Heart Rate [ Brachial] Respiratory Rate Blood Pressure 119/62 Blood Pressure [Right Brachial artery] O2 Saturation Oxygen O2 Source Room air I&O (Last 24 Hrs): Intake and Output Totals x24h 11/14/22 11/15/22 11/16/22 23:59 23:59 23:59 Intake Total 1290 240 Output Total 5250 1900 Balance -3960 -1660 General: Alert, Oriented x3, No acute distress HEENT: Atraumatic Neuro: Alert, Non Focal Cardiovascular: Regular rate, Normal S1, Normal S2 Respiratory: No respiratory distress Abdomen: Soft Extremities: Other (Trace bilateral pedal edema) - Results Results: Laboratory Results WBC 3.9 x10^3/uL (4.8-10.8) L 11/16/22 05:14 RBC 3.42 10^6/uL (4.20-5.40) L 11/16/22 05:14 Hgb 11.7 g/dL (12.0-16.0) L 11/16/22 05:14 Hct 35.5 % (37.0-47.0) L 11/16/22 05:14 MCV 103.8 fL (81.0-99.0) H 11/16/22 05:14 MCH 34.2 pg (27.0-31.0) H 11/16/22 05:14 MCHC 33.0 g/dL (32.0-36.0) 11/16/22 05:14 RDW 14.6 % (12.0-15.0) 11/16/22 05:14 Plt Count 196 10^3/uL (130-450) 11/16/22 05:14 MPV 9.1 fL (7.9-10.8) 11/16/22 05:14 Neut # (Auto) 3.2 10^3/uL (1.5-6.6) 11/14/22 19:43 Lymph # (Auto) 0.9 10^3/uL (1.5-3.5) L 11/14/22 19:43 [place] # (Auto) 0.6 10^3/uL (0.0-1.0) 11/14/22 19:43 Eos # (Auto) 0.1 10^3/uL (0.0-0.7) 11/14/22 19:43 Baso # (Auto) 0.1 10^3/uL (0.0-0.1) 11/14/22 19:43 Absolute Nucleated RBC 0.00 x10^3/uL 11/14/22 19:43 Nucleated RBC % 0.0 /100WBC 11/14/22 19:43 PT 22.5 secs (9.9-12.6) H 11/16/22 05:14 INR 2.1 (0.8-1.2) H 11/16/22 05:14 VBG pH 7.463 (7.31-7.41) H 11/14/22 19:43 VBG pCO2 32.8 mmHg (41-51) L 11/14/22 19:43 VBG pO2 64.2 mmHg (25-47) H 11/14/22 19:43 VBG HCO3 23.0 mmol/L (23-28) 11/14/22 19:43 VBG Total CO2 24.0 mmol/L (24-29) 11/14/22 19:43 VBG O2 Saturation 94.2 % (60-80) H 11/14/22 19:43 VBG Base Excess -0.1 mmol/L (-2 - +2) 11/14/22 19:43 Sodium 139 mmol/L (135-145) 11/16/22 05:14 Potassium 3.8 mmol/L (3.5-5.0) 11/16/22 05:14 Chloride 98 mmol/L (101-111) L 11/16/22 05:14 Carbon Dioxide 31 mmol/L (21-32) 11/16/22 05:14 Anion Gap 10.0 (6-13) 11/16/22 05:14 BUN 35 mg/dL (6-20) H 11/16/22 05:14 Creatinine 0.9 mg/dL (0.4-1.0) 11/16/22 05:14 Estimated GFR (MDRD) 60 (>89) L 11/16/22 05:14 Glucose 85 mg/dL (70-100) 11/16/22 05:14 Calcium 9.2 mg/dL (8.5-10.3) 11/16/22 05:14 Ionized Calcium NO 11/16/22 05:14 Phosphorus 3.1 mg/dL (2.5-4.6) 11/15/22 05:14 Magnesium 2.1 mg/dL (1.7-2.8) 11/16/22 05:14 Total Bilirubin 0.9 mg/dL (0.2-1.0) 11/14/22 20:09 AST 49 IU/L (10-42) H 11/14/22 20:09 ALT 34 IU/L (10-60) 11/14/22 20:09 Alkaline Phosphatase 86 IU/L (42-121) 11/14/22 20:09 Troponin I High Sens 80.4 ng/L (2.3-14.8) H* 11/15/22 10:58 B-Natriuretic Peptide 990 pg/mL (5-100) H 11/15/22 05:14 Total Protein 7.5 g/dL (6.7-8.2) 11/14/22 20:09 Albumin 4.5 g/dL (3.2-5.5) 11/14/22 20:09 Globulin 3.0 g/dL (2.1-4.2) 11/14/22 20:09 Albumin/Globulin Ratio 1.5 (1.0-2.2) 11/14/22 20:09 Lipase 46 U/L (22-51) 11/14/22 20:09 Vitamin B12 312 pg/mL (180-914) 11/15/22 10:58 Folate 45.00 ng/mL (5.90 - >24.8) 11/15/22 10:58 Nasal Adenovirus (PCR) NOT DETECTED 11/14/22 20:14 Nasal B. parapertussis DNA (PCR) NOT DETECTED 11/14/22 20:14 Nasal Coronavir 229E PCR NOT DETECTED 11/14/22 20:14 Nasal Coronavir HKU1 PCR NOT DETECTED 11/14/22 20:14 Nasal Coronavir NL63 PCR NOT DETECTED 11/14/22 20:14 Nasal Coronavir OC43 PCR NOT DETECTED 11/14/22 20:14 Nasal Enterovir/Rhinovir PCR NOT DETECTED 11/14/22 20:14 Nasal Influenza B PCR NOT DETECTED 11/14/22 20:14 Nasal Influenza A PCR NOT DETECTED 11/14/22 20:14 Nasal Parainfluen 1 PCR NOT DETECTED 11/14/22 20:14 Nasal Parainfluen 2 PCR NOT DETECTED 11/14/22 20:14 Nasal Parainfluen 3 PCR NOT DETECTED 11/14/22 20:14 Nasal Parainfluen 4 PCR NOT DETECTED 11/14/22 20:14 Nasal RSV (PCR) NOT DETECTED 11/14/22 20:14 Nasal B.pertussis DNA PCR NOT DETECTED 11/14/22 20:14 Nasal C.pneumoniae (PCR) NOT DETECTED 11/14/22 20:14 Pierre Human Metapneumo PCR NOT DETECTED 11/14/22 20:14 Nasal M.pneumoniae (PCR) NOT DETECTED 11/14/22 20:14 Nasal SARS-CoV-2 (PCR) NOT DETECTED 11/14/22 20:14 ABX Reporting Has patient been on IV antibiotics over the past 48 hours?: No
[2022-11-16] MEDS: WARFARIN 5 MG TABLET PO SCH (16:46)
[2022-11-16] MEDS ORDERED: WARFARIN 5 MG TABLET PO SCH (17:00)
[2022-11-16] MEDS ORDERED: METOPROLOL TARTRATE 50 MG TABLET PO SCH (20:16)
[2022-11-17 05:57] LABS: PT - PROTHROMBIN TIME 21.1 secs (9.9-12.6)
[2022-11-17 05:59] LABS: BUN - BLOOD UREA NITROGEN 34 mg/dL (6-20); CALCIUM 9.3 mg/dL (8.5-10.3); CARBON DIOXIDE - CO2 31 mmol/L (21-32); CHLORIDE 99 mmol/L (101-111); CREATININE 0.9 mg/dL (0.4-1.0); GFR - MDRD 60 (>89); GLUCOSE 84 mg/dL (70-100); IONIZED CALCIUM IF INDICATED NO; MAGNESIUM 2.1 mg/dL (1.7-2.8); POTASSIUM 3.8 mmol/L (3.5-5.0); SODIUM 140 mmol/L (135-145)
[2022-11-17] MEDS: METOPROLOL TARTRATE 25 MG TABLET PO SCH ×2 (09:17→21:41)
[2022-11-17] MEDS: POTASSIUM CHLORIDE 10 MEQ CAPSULE PO SCH (09:17)
[2022-11-17] MEDS: FERROUS SULFATE 325 MG TABLET PO SCH ×2 (09:17→16:43)
[2022-11-17] MEDS: traMADol 50 MG TABLET PO SCH ×2 (09:17→21:39)
[2022-11-17] MEDS: SOLIFENACIN SUCCINATE 5 MG TABLET PO SCH (09:19)
[2022-11-17] MEDS: FUROSEMIDE 40 MG/4 ML VIAL IVP SCH (09:19)
[2022-11-17] MEDS: MULTIVITAMIN TABLET PO SCH (09:20)
[2022-11-17] MEDS: SODIUM CHLORIDE FLUSH 0.9% 10 ML SYRINGE IVP SCH ×2 (09:20→16:42)
[2022-11-17] MEDS: CHOLECALCIFEROL 25 MCG TABLET PO SCH (09:20)
--- NOTE | 2022-11-17 13:31 | PROVIDER PROGRESS NOTE ---
Assessment/Plan - Problem List (1) Acute exacerbation of CHF (congestive heart failure) Qualifiers: Heart failure type: combined systolic and diastolic Qualified Code(s): I50.43 - Acute on chronic combined systolic (congestive) and diastolic (congestive) heart failure Assessment/Plan: Assessment/Plan: Conclusion/Plan: acute on chronic HFmrEF. 45-50%. hx and sxs and labs support diagnosis of CHF exacerbation. ED gave patient a large dose IV Lasix 100mg. will continue diuresis with 40mg IV daily. BMP to monitor for electrolyte abn and renal injury. check cardiac enzymes - trop and BNP. update echo. monitor on tele. fluid restrict. daily weighing. I & O . November 17, 2022-patient has improving respiratory status and less lower extremity edema with IV diuresis Qualifiers: Heart failure type: diastolic Qualified Code(s): I50.33 - Acute on chronic diastolic (congestive) heart failure (2) Acute respiratory failure with hypoxia Conclusion/Plan: O2 saturation down 88% on RA c exertion. O2 support c NC. breathing treatment as needed. diurese patient in CHF exacerbation. November 17, 2022-patient not requiring any O2 supplementation at this time (3) Atrial fibrillation, chronic Conclusion/Plan: rate controlled. opted to restart metoprolol but hold verapamil given CHF exacrbation. monitor on tele. cover hypercoagulable state 2/2 afib with warfarin but to hold at this time given supratherapeutic INR. RN can give once INR< 3 per parameter. November 17, 2022-patient had episode of bradycardia with a heart rate of 43 atrial fibrillation 6:35 AM she was sleeping during this. There were other episodes that were also documented on telemetry heart rate of 36 also. Hence metoprolol was changed from 50 mg twice daily to 37.5 mg p.o. twice daily and will continue to monitor here in hospital. (4) Hypertension Conclusion/Plan: controlled. cover with metoprolol. hold verapamil 2/2 CHF exacebation. hold Losartan out of concern for possible renal inury after Lasix 100mg. if no renal injury, then restart Losartan home med. prn coverage with hydralazine. (5) Supratherapeutic INR Conclusion/Plan: INR 3.5 on warfarin. no acute bleed noted and hgb/hct stable. cover hypercoagulable state 2/2 afib with warfarin but to hold at this time given supratherapeutic INR. RN can give once INR< 3 per parameter. - Current Meds Current Meds: Current Medications Generic Name Dose Route Start Last Admin Trade Name Frehua PRN Reason Stop Dose Admin Acetaminophen 650 mg 11/14/22 21:19 11/16/22 04:54 Acetaminophen 325 Mg Tablet PO 650 mg Q4HR PRN Administration Pain 1 to 4, or Fever Cholecalciferol 50 mcg 11/15/22 09:00 11/17/22 09:20 Cholecalciferol 25 Mcg Tablet PO 50 mcg DAILY YOJANA Administration Ferrous Sulfate 325 mg 11/15/22 10:20 11/17/22 09:17 Ferrous Sulfate 325 Mg Tablet PO 325 mg 0800,1700 YOJAAN Administration Furosemide 40 mg 11/15/22 09:00 11/17/22 09:19 Furosemide 40 Mg/4 Ml Vial IVP 40 mg DAILY YOJANA Administration Metoprolol Tartrate 37.5 mg 11/17/22 09:00 11/17/22 09:17 Metoprolol Tartrate 25 Mg Tablet PO 37.5 mg BID YOJANA Administration Multivitamins 1 tab 11/15/22 08:00 11/17/22 09:20 Multivitamin Tablet PO 1 tab DAILYWM YOJANA Administration Potassium Chloride 20 meq 11/15/22 09:00 11/17/22 09:17 Potassium Chloride 10 Meq Capsule PO 20 meq DAILY YOJANA Administration Sodium Chloride 10 ml 11/15/22 01:00 11/17/22 09:20 Sodium Chloride Flush 0.9% 10 Ml Syringe IVP 10 ml 0100,0900,1700 YOJANA Administration Solifenacin 10 mg 11/15/22 09:00 11/17/22 09:19 Solifenacin Succinate 5 Mg Tablet PO 10 mg DAILY YOJANA Administration Tramadol HCl 100 mg 11/16/22 08:00 11/17/22 09:17 Tramadol 50 Mg Tablet PO 100 mg BID YOJANA Administration Warfarin Sodium 2.5 mg 11/15/22 17:00 11/15/22 16:22 Warfarin 2.5 Mg Tablet PO 2.5 mg [id number] YOJANA Administration Warfarin Sodium 5 mg 11/15/22 17:00 11/16/22 16:46 Warfarin 5 Mg Tablet PO 5 mg 1700 YOJANA Administration - Lab Result Fish Bone Diagrams: 11/16/22 05:14 11/17/22 05:45 - Additional Planning My Orders: My Active Orders 11/17/22 09:00 Metoprolol Tartrate [Lopressor] 37.5 mg PO BID 11/18/22 05:00 BMP, RFLX TO IONIZED CA IF [CHEM] DAILYLAB MAGNESIUM [CHEM] DAILYLAB 11/19/22 05:00 BMP, RFLX TO IONIZED CA IF [CHEM] DAILYLAB MAGNESIUM [CHEM] DAILYLAB Objective Vital Signs: Vital Signs - 24 hr 11/16/22 11/16/22 11/16/22 15:41 20:01 21:15 Temperature 36.6 C 36.6 C Heart Rate [ 61 68 Brachial] Heart Rate [ Monitoring electrodes] Respiratory 16 16 Rate Blood Pressure 121/52 L Blood Pressure 122/75 121/52 L [Right Brachial artery] O2 Saturation 98 95 11/16/22 11/17/22 11/17/22 23:35 05:00 07:44 Temperature 36.2 C L 36.5 C 36.5 C Heart Rate [ 62 Brachial] Heart Rate [ 70 59 L Monitoring electrodes] Respiratory 16 20 18 Rate Blood Pressure Blood Pressure 127/77 127/75 128/56 L [Right Brachial artery] O2 Saturation 95 94 95 11/17/22 11/17/22 09:17 11:28 Temperature 36.9 C Heart Rate [ 61 Brachial] Heart Rate [ Monitoring electrodes] Respiratory 16 Rate Blood Pressure 128/56 L Blood Pressure 119/74 [Right Brachial artery] O2 Saturation 94 Oxygen O2 Source Room air I&O (Last 24 Hrs): Intake and Output Totals x24h 11/15/22 11/16/22 11/17/22 23:59 23:59 23:59 Intake Total 1290 960 600 Output Total 5250 3350 1100 Balance -5241 -4117 -217 General: Alert, Oriented x3 HEENT: Atraumatic Neuro: Alert Cardiovascular: Normal S1, Normal S2 Respiratory: No respiratory distress Abdomen: Soft Extremities: Other (Trace bilateral pedal edema) - Results Results: Laboratory Results WBC 3.9 x10^3/uL (4.8-10.8) L 11/16/22 05:14 RBC 3.42 10^6/uL (4.20-5.40) L 11/16/22 05:14 Hgb 11.7 g/dL (12.0-16.0) L 11/16/22 05:14 Hct 35.5 % (37.0-47.0) L 11/16/22 05:14 MCV 103.8 fL (81.0-99.0) H 11/16/22 05:14 MCH 34.2 pg (27.0-31.0) H 11/16/22 05:14 MCHC 33.0 g/dL (32.0-36.0) 11/16/22 05:14 RDW 14.6 % (12.0-15.0) 11/16/22 05:14 Plt Count 196 10^3/uL (130-450) 11/16/22 05:14 MPV 9.1 fL (7.9-10.8) 11/16/22 05:14 Neut # (Auto) 3.2 10^3/uL (1.5-6.6) 11/14/22 19:43 Lymph # (Auto) 0.9 10^3/uL (1.5-3.5) L 11/14/22 19:43 [place] # (Auto) 0.6 10^3/uL (0.0-1.0) 11/14/22 19:43 Eos # (Auto) 0.1 10^3/uL (0.0-0.7) 11/14/22 19:43 Baso # (Auto) 0.1 10^3/uL (0.0-0.1) 11/14/22 19:43 Absolute Nucleated RBC 0.00 x10^3/uL 11/14/22 19:43 Nucleated RBC % 0.0 /100WBC 11/14/22 19:43 PT 21.1 secs (9.9-12.6) H 11/17/22 05:50 INR 2.0 (0.8-1.2) H 11/17/22 05:50 VBG pH 7.463 (7.31-7.41) H 11/14/22 19:43 VBG pCO2 32.8 mmHg (41-51) L 11/14/22 19:43 VBG pO2 64.2 mmHg (25-47) H 11/14/22 19:43 VBG HCO3 23.0 mmol/L (23-28) 11/14/22 19:43 VBG Total CO2 24.0 mmol/L (24-29) 11/14/22 19:43 VBG O2 Saturation 94.2 % (60-80) H 11/14/22 19:43 VBG Base Excess -0.1 mmol/L (-2 - +2) 11/14/22 19:43 Sodium 140 mmol/L (135-145) 11/17/22 05:45 Potassium 3.8 mmol/L (3.5-5.0) 11/17/22 05:45 Chloride 99 mmol/L (101-111) L 11/17/22 05:45 Carbon Dioxide 31 mmol/L (21-32) 11/17/22 05:45 Anion Gap 10.0 (6-13) 11/17/22 05:45 BUN 34 mg/dL (6-20) H 11/17/22 05:45 Creatinine 0.9 mg/dL (0.4-1.0) 11/17/22 05:45 Estimated GFR (MDRD) 60 (>89) L 11/17/22 05:45 Glucose 84 mg/dL (70-100) 11/17/22 05:45 Calcium 9.3 mg/dL (8.5-10.3) 11/17/22 05:45 Ionized Calcium NO 11/17/22 05:45 Phosphorus 3.1 mg/dL (2.5-4.6) 11/15/22 05:14 Magnesium 2.1 mg/dL (1.7-2.8) 11/17/22 05:45 Total Bilirubin 0.9 mg/dL (0.2-1.0) 11/14/22 20:09 AST 49 IU/L (10-42) H 11/14/22 20:09 ALT 34 IU/L (10-60) 11/14/22 20:09 Alkaline Phosphatase 86 IU/L (42-121) 11/14/22 20:09 Troponin I High Sens 80.4 ng/L (2.3-14.8) H* 11/15/22 10:58 B-Natriuretic Peptide 990 pg/mL (5-100) H 11/15/22 05:14 Total Protein 7.5 g/dL (6.7-8.2) 11/14/22 20:09 Albumin 4.5 g/dL (3.2-5.5) 11/14/22 20:09 Globulin 3.0 g/dL (2.1-4.2) 11/14/22 20:09 Albumin/Globulin Ratio 1.5 (1.0-2.2) 11/14/22 20:09 Lipase 46 U/L (22-51) 11/14/22 20:09 Vitamin B12 312 pg/mL (180-914) 11/15/22 10:58 Folate 45.00 ng/mL (5.90 - >24.8) 11/15/22 10:58 Nasal Adenovirus (PCR) NOT DETECTED 11/14/22 20:14 Nasal B. parapertussis DNA (PCR) NOT DETECTED 11/14/22 20:14 Nasal Coronavir 229E PCR NOT DETECTED 11/14/22 20:14 Nasal Coronavir HKU1 PCR NOT DETECTED 11/14/22 20:14 Nasal Coronavir NL63 PCR NOT DETECTED 11/14/22 20:14 Nasal Coronavir OC43 PCR NOT DETECTED 11/14/22 20:14 Nasal Enterovir/Rhinovir PCR NOT DETECTED 11/14/22 20:14 Nasal Influenza B PCR NOT DETECTED 11/14/22 20:14 Nasal Influenza A PCR NOT DETECTED 11/14/22 20:14 Nasal Parainfluen 1 PCR NOT DETECTED 11/14/22 20:14 Nasal Parainfluen 2 PCR NOT DETECTED 11/14/22 20:14 Nasal Parainfluen 3 PCR NOT DETECTED 11/14/22 20:14 Nasal Parainfluen 4 PCR NOT DETECTED 11/14/22 20:14 Nasal RSV (PCR) NOT DETECTED 11/14/22 20:14 Nasal B.pertussis DNA PCR NOT DETECTED 11/14/22 20:14 Nasal C.pneumoniae (PCR) NOT DETECTED 11/14/22 20:14 Pierre Human Metapneumo PCR NOT DETECTED 11/14/22 20:14 Nasal M.pneumoniae (PCR) NOT DETECTED 11/14/22 20:14 Nasal SARS-CoV-2 (PCR) NOT DETECTED 11/14/22 20:14 ABX Reporting Has patient been on IV antibiotics over the past 48 hours?: No
[2022-11-17] MEDS: WARFARIN 5 MG TABLET PO SCH (16:47)
[2022-11-17] MEDS: ACETAMINOPHEN 325 MG TABLET PO PRN (16:48)
[2022-11-18] MEDS: SODIUM CHLORIDE FLUSH 0.9% 10 ML SYRINGE IVP SCH ×3 (01:08→17:04)
[2022-11-18 05:41] LABS: BUN - BLOOD UREA NITROGEN 33 mg/dL (6-20); CALCIUM 9.5 mg/dL (8.5-10.3); CARBON DIOXIDE - CO2 31 mmol/L (21-32); CHLORIDE 97 mmol/L (101-111); CREATININE 0.9 mg/dL (0.4-1.0); GFR - MDRD 60 (>89); GLUCOSE 85 mg/dL (70-100); IONIZED CALCIUM IF INDICATED NO; MAGNESIUM 2.3 mg/dL (1.7-2.8); SODIUM 136 mmol/L (135-145)
[2022-11-18] MEDS: POTASSIUM CHLORIDE 10 MEQ CAPSULE PO SCH (08:21)
[2022-11-18] MEDS: FERROUS SULFATE 325 MG TABLET PO SCH ×2 (08:21→17:02)
[2022-11-18] MEDS: MULTIVITAMIN TABLET PO SCH (08:21)
[2022-11-18] MEDS: CHOLECALCIFEROL 25 MCG TABLET PO SCH (08:21)
[2022-11-18] MEDS: traMADol 50 MG TABLET PO SCH ×2 (08:21→21:28)
[2022-11-18] MEDS: SOLIFENACIN SUCCINATE 5 MG TABLET PO SCH (08:21)
[2022-11-18] MEDS: FUROSEMIDE 40 MG/4 ML VIAL IVP SCH (10:07)
[2022-11-18] MEDS: METOPROLOL TARTRATE 25 MG TABLET PO SCH (10:07)
[2022-11-18] MEDS ORDERED: LOSARTAN 50 MG TABLET PO SCH (12:00)
[2022-11-18] MEDS: LOSARTAN 50 MG TABLET PO SCH (12:22)
[2022-11-18] MEDS: WARFARIN 2.5 MG TABLET PO SCH (17:03)
[2022-11-18] MEDS: WARFARIN 5 MG TABLET PO SCH (17:03)
--- NOTE | 2022-11-18 17:33 | PROVIDER PROGRESS NOTE ---
Assessment/Plan - Problem List (1) Acute exacerbation of CHF (congestive heart failure) Qualifiers: Heart failure type: combined systolic and diastolic Qualified Code(s): I50.43 - Acute on chronic combined systolic (congestive) and diastolic (congestive) heart failure Assessment/Plan: Her EF was 45-50%, by Echo which was done in 03/13 (chart reviewed), and then she had a stress test in 07/14 which showed no ischemia. Her hx and sxs and labs supported diagnosis of CHF exacerbation. ED gave patient a large dose IV Lasix and we continued diuresis with 40mg IV daily and oral fluid restriction. Her cardiac enzymes were unremarkable. Unremarkable monitor on tele Patient has improving respiratory status and less lower extremity edema with IV diuresis Plan: Still awaiting an Echo, her last one was in 03/13 (chart reviewed), and then had stress test in 07/14 which showed no ischemia. (We have no Air Traffic Control Operator here except Maximo, today is Mon) Following BMP to monitor for electrolyte abnor and renal injury. I will change all her IV meds to p.o. forms today and if she continues to have improvement then anticipate discharge tomorrow (2) Acute respiratory failure with hypoxia Conclusion/Plan: O2 saturation was down to 88% on RA with exertion. O2 supported via NC. Also breathing treatment w/ nebs ordered as needed. We are diuresing patient in CHF exacerbation as well Plan: Will do an oximetry walk test on the day of [facility] to see if she requires a new home O2 order (3) Atrial fibrillation, chronic Conclusion/Plan: Heart brate controlled. The last Hospitalist opted to restart metoprolol but hold verapamil given CHF exacrbation. Stable monitor on tele. cover She is usually on warfarin, but was on hold given supratherapeutic INR. RN can give once INR< 3 per parameter. On November 17, 2022-patient had episode of bradycardia with a heart rate of 43 atrial fibrillation 6:35 AM she was sleeping during this. There were other episodes that were also documented on telemetry heart rate as low as 36 also. Hence metoprolol was changed from 50 mg twice daily to 37.5 mg p.o. twice daily and will continue to monitor here in hospital. Plan: Continue the warfarin with target INR 2-3 I will plan to discharge her on the new metoprolol 37.5 mg p.o. She also may not longer need Verapimil (4) Hypertension Conclusion/Plan: Her BP is controlled with metoprolol and still holding verapamil 2/2 CHF exacebation. Initially her Losartan was on hold out of concern for possible renal inury after Lasix 100mg given in ED. Also prn coverage with hydralazine for HTN iurgency was ordered. Plan: Will restart Losartan home med. (5) Supratherapeutic INR Conclusion/Plan: INR was 3.5 on warfarin. (labs were all reviewed0. There was no acute bleed noted and hgb/hct stable. Plan: RN can give once INR< 3 per parameter. - Current Meds Current Meds: Current Medications Generic Name Dose Route Start Last Admin Trade Name Freq PRN Reason Stop Dose Admin Acetaminophen 650 mg 11/14/22 21:19 11/17/22 16:48 Acetaminophen 325 Mg Tablet PO 650 mg Q4HR PRN Administration Pain 1 to 4, or Fever Cholecalciferol 50 mcg 11/15/22 09:00 11/18/22 08:21 Cholecalciferol 25 Mcg Tablet PO 50 mcg DAILY YOJANA Administration Ferrous Sulfate 325 mg 11/15/22 10:20 11/18/22 17:02 Ferrous Sulfate 325 Mg Tablet PO 325 mg 0800,1700 YOJANA Administration Losartan Potassium 50 mg 11/18/22 12:00 11/18/22 12:22 Losartan 50 Mg Tablet PO Not Given 1200 YOJANA Multivitamins 1 tab 11/15/22 08:00 11/18/22 08:21 Multivitamin Tablet PO 1 tab DAILYWM YOJANA Administration Potassium Chloride 20 meq 11/15/22 09:00 11/18/22 08:21 Potassium Chloride 10 Meq Capsule PO 20 meq DAILY YOJANA Administration Sodium Chloride 10 ml 11/15/22 01:00 11/18/22 17:04 Sodium Chloride Flush 0.9% 10 Ml Syringe IVP 10 ml 0100,0900,1700 YOJANA Administration Solifenacin 10 mg 11/15/22 09:00 11/18/22 08:21 Solifenacin Succinate 5 Mg Tablet PO 10 mg DAILY YOJANA Administration Tramadol HCl 100 mg 11/16/22 08:00 11/18/22 08:21 Tramadol 50 Mg Tablet PO 100 mg BID YOJANA Administration Warfarin Sodium 2.5 mg 11/15/22 17:00 11/18/22 17:03 Warfarin 2.5 Mg Tablet PO 2.5 mg Diego@1700 [facility] Administration Warfarin Sodium 5 mg 11/15/22 17:00 11/18/22 17:03 Warfarin 5 Mg Tablet PO 5 mg 1700 [facility] Administration - Lab Result Fish Bone Diagrams: 11/16/22 05:14 11/19/22 04:49 - Additional Planning My Orders: My Active Orders 11/18/22 12:00 Losartan [Cozaar] 50 mg PO 1200 11/18/22 21:00 Metoprolol Succinate [Toprol Xl] 37.5 mg PO BID 11/19/22 05:00 BNP - B-NATRIURETIC PEPTIDE [IAI] DAILYLAB 11/19/22 07:00 Echo Transthoracic Complete [ECHO] Routine 11/19/22 09:00 Furosemide [Lasix] 40 mg PO DAILY Subjective - Subjective Patient Reports: Feeling Better (Less SOB, much less leg edema, motivated to go home) Objective Vital Signs: Vital Signs - 24 hr 11/17/22 11/17/22 11/17/22 20:06 21:36 21:41 Temperature 36.6 C Heart Rate [ 67 Brachial] Heart Rate [ 65 Monitoring electrodes] Respiratory 20 Rate Blood Pressure 137/62 H Blood Pressure [Left Brachial artery] Blood Pressure 121/69 137/62 H [Right Brachial artery] O2 Saturation 97 95 11/18/22 11/18/22 11/18/22 00:32 04:31 08:34 Temperature 36.5 C 36.8 C 36.9 C Heart Rate [ 70 Brachial] Heart Rate [ 70 72 Monitoring electrodes] Respiratory 16 16 17 Rate Blood Pressure Blood Pressure [Left Brachial artery] Blood Pressure 134/90 H 111/75 125/79 [Right Brachial artery] O2 Saturation 93 94 96 11/18/22 11/18/22 11/18/22 10:07 12:17 12:22 Temperature 36.9 C Heart Rate [ 61 72 Brachial] Heart Rate [ Monitoring electrodes] Respiratory 17 Rate Blood Pressure 125/79 Blood Pressure 110/73 [Left Brachial artery] Blood Pressure 120/61 [Right Brachial artery] O2 Saturation 95 11/18/22 16:05 Temperature 36.5 C Heart Rate [ 65 Brachial] Heart Rate [ Monitoring electrodes] Respiratory 16 Rate Blood Pressure Blood Pressure [Left Brachial artery] Blood Pressure 126/64 [Right Brachial artery] O2 Saturation 97 Oxygen O2 Source Room air I&O (Last 24 Hrs): Intake and Output Totals x24h 11/16/22 11/17/22 11/18/22 23:59 23:59 23:59 Intake Total 960 1398 972 Output Total 3350 2400 3970 Balance -5130 -1002 -628 General: Alert, Oriented x3 HEENT: Atraumatic, Mucous membr. moist/pink Cardiovascular: No murmurs Respiratory: No respiratory distress, Breath sounds nml Extremities: No clubbing, No edema - Results Results: Laboratory Results WBC 3.9 x10^3/uL (4.8-10.8) L 11/16/22 05:14 RBC 3.42 10^6/uL (4.20-5.40) L 11/16/22 05:14 Hgb 11.7 g/dL (12.0-16.0) L 11/16/22 05:14 Hct 35.5 % (37.0-47.0) L 11/16/22 05:14 MCV 103.8 fL (81.0-99.0) H 11/16/22 05:14 MCH 34.2 pg (27.0-31.0) H 11/16/22 05:14 MCHC 33.0 g/dL (32.0-36.0) 11/16/22 05:14 RDW 14.6 % (12.0-15.0) 11/16/22 05:14 Plt Count 196 10^3/uL (130-450) 11/16/22 05:14 MPV 9.1 fL (7.9-10.8) 11/16/22 05:14 Neut # (Auto) 3.2 10^3/uL (1.5-6.6) 11/14/22 19:43 Lymph # (Auto) 0.9 10^3/uL (1.5-3.5) L 11/14/22 19:43 [place] # (Auto) 0.6 10^3/uL (0.0-1.0) 11/14/22 19:43 Eos # (Auto) 0.1 10^3/uL (0.0-0.7) 11/14/22 19:43 Baso # (Auto) 0.1 10^3/uL (0.0-0.1) 11/14/22 19:43 Absolute Nucleated RBC 0.00 x10^3/uL 11/14/22 19:43 Nucleated RBC % 0.0 /100WBC 11/14/22 19:43 PT 21.1 secs (9.9-12.6) H 11/17/22 05:50 INR 2.0 (0.8-1.2) H 11/17/22 05:50 VBG pH 7.463 (7.31-7.41) H 11/14/22 19:43 VBG pCO2 32.8 mmHg (41-51) L 11/14/22 19:43 VBG pO2 64.2 mmHg (25-47) H 11/14/22 19:43 VBG HCO3 23.0 mmol/L (23-28) 11/14/22 19:43 VBG Total CO2 24.0 mmol/L (24-29) 11/14/22 19:43 VBG O2 Saturation 94.2 % (60-80) H 11/14/22 19:43 VBG Base Excess -0.1 mmol/L (-2 - +2) 11/14/22 19:43 Sodium 136 mmol/L (135-145) 11/18/22 04:24 Potassium 4.0 mmol/L (3.5-5.0) 11/18/22 04:24 Chloride 97 mmol/L (101-111) L 11/18/22 04:24 Carbon Dioxide 31 mmol/L (21-32) 11/18/22 04:24 Anion Gap 8.0 (6-13) 11/18/22 04:24 BUN 33 mg/dL (6-20) H 11/18/22 04:24 Creatinine 0.9 mg/dL (0.4-1.0) 11/18/22 04:24 Estimated GFR (MDRD) 60 (>89) L 11/18/22 04:24 Glucose 85 mg/dL (70-100) 11/18/22 04:24 Calcium 9.5 mg/dL (8.5-10.3) 11/18/22 04:24 Ionized Calcium NO 11/18/22 04:24 Phosphorus 3.1 mg/dL (2.5-4.6) 11/15/22 05:14 Magnesium 2.3 mg/dL (1.7-2.8) 11/18/22 04:24 Total Bilirubin 0.9 mg/dL (0.2-1.0) 11/14/22 20:09 AST 49 IU/L (10-42) H 11/14/22 20:09 ALT 34 IU/L (10-60) 11/14/22 20:09 Alkaline Phosphatase 86 IU/L (42-121) 11/14/22 20:09 Troponin I High Sens 80.4 ng/L (2.3-14.8) H* 11/15/22 10:58 B-Natriuretic Peptide 990 pg/mL (5-100) H 11/15/22 05:14 Total Protein 7.5 g/dL (6.7-8.2) 11/14/22 20:09 Albumin 4.5 g/dL (3.2-5.5) 11/14/22 20:09 Globulin 3.0 g/dL (2.1-4.2) 11/14/22 20:09 Albumin/Globulin Ratio 1.5 (1.0-2.2) 11/14/22 20:09 Lipase 46 U/L (22-51) 11/14/22 20:09 Vitamin B12 312 pg/mL (180-914) 11/15/22 10:58 Folate 45.00 ng/mL (5.90 - >24.8) 11/15/22 10:58 Nasal Adenovirus (PCR) NOT DETECTED 11/14/22 20:14 Nasal B. parapertussis DNA (PCR) NOT DETECTED 11/14/22 20:14 Nasal Coronavir 229E PCR NOT DETECTED 11/14/22 20:14 Nasal Coronavir HKU1 PCR NOT DETECTED 11/14/22 20:14 Nasal Coronavir NL63 PCR NOT DETECTED 11/14/22 20:14 Nasal Coronavir OC43 PCR NOT DETECTED 11/14/22 20:14 Nasal Enterovir/Rhinovir PCR NOT DETECTED 11/14/22 20:14 Nasal Influenza B PCR NOT DETECTED 11/14/22 20:14 Nasal Influenza A PCR NOT DETECTED 11/14/22 20:14 Nasal Parainfluen 1 PCR NOT DETECTED 11/14/22 20:14 Nasal Parainfluen 2 PCR NOT DETECTED 11/14/22 20:14 Nasal Parainfluen 3 PCR NOT DETECTED 11/14/22 20:14 Nasal Parainfluen 4 PCR NOT DETECTED 11/14/22 20:14 Nasal RSV (PCR) NOT DETECTED 11/14/22 20:14 Nasal B.pertussis DNA PCR NOT DETECTED 11/14/22 20:14 Nasal C.pneumoniae (PCR) NOT DETECTED 11/14/22 20:14 Pierre Human Metapneumo PCR NOT DETECTED 11/14/22 20:14 Nasal M.pneumoniae (PCR) NOT DETECTED 11/14/22 20:14 Nasal SARS-CoV-2 (PCR) NOT DETECTED 11/14/22 20:14
[2022-11-18] MEDS: METOPROLOL SUCCINATE 25 MG TABLET PO SCH (21:28)
[2022-11-19] MEDS: SODIUM CHLORIDE FLUSH 0.9% 10 ML SYRINGE IVP SCH ×2 (01:00→08:44)
[2022-11-19] MEDS: ACETAMINOPHEN 325 MG TABLET PO PRN (05:07)
[2022-11-19 05:36] LABS: BUN - BLOOD UREA NITROGEN 30 mg/dL (6-20); CALCIUM 9.4 mg/dL (8.5-10.3); CARBON DIOXIDE - CO2 31 mmol/L (21-32); CHLORIDE 98 mmol/L (101-111); CREATININE 0.9 mg/dL (0.4-1.0); GFR - MDRD 60 (>89); GLUCOSE 84 mg/dL (70-100); IONIZED CALCIUM IF INDICATED NO; MAGNESIUM 2.3 mg/dL (1.7-2.8); POTASSIUM 4.2 mmol/L (3.5-5.0); SODIUM 138 mmol/L (135-145)
[2022-11-19] MEDS: SOLIFENACIN SUCCINATE 5 MG TABLET PO SCH (08:42)
[2022-11-19] MEDS: MULTIVITAMIN TABLET PO SCH (08:43)
[2022-11-19] MEDS: METOPROLOL SUCCINATE 25 MG TABLET PO SCH (08:43)
[2022-11-19] MEDS: POTASSIUM CHLORIDE 10 MEQ CAPSULE PO SCH (08:43)
[2022-11-19] MEDS: traMADol 50 MG TABLET PO SCH (08:43)
[2022-11-19] MEDS: FERROUS SULFATE 325 MG TABLET PO SCH (08:43)
[2022-11-19] MEDS: CHOLECALCIFEROL 25 MCG TABLET PO SCH (08:43)
[2022-11-19] MEDS ORDERED: FUROSEMIDE 40 MG TABLET PO SCH (09:00)
[2022-11-19] MEDS: LOSARTAN 50 MG TABLET PO SCH (12:39)
--- NOTE | 2022-11-19 14:18 | Discharge Plan ---
Discharge Plan Problem Reviewed?: Yes Disposition: Home, Self Care Condition: Fair Prescriptions: Losartan Potassium 25 mg PO DAILY #30 tablet Diet: Low Sodium Activity Restrictions: Activity as Tolerated Shower Restrictions: No Driving Restrictions: No Instruction Topics: Hypertension Pulmonary Health Concerns: You were hospitalized to treat shortness of breath, a very low oxygen level and we found you to have fluid overload called congestive heart failure. You received medicines that allowed the fluid to be diuresed off, and you have lost approximately 6 L of fluid. 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 And you have pulmonary hypertension, which means you have high blood pressure in your lungs. You are being discharged home and advised to follow the list of medications now prescribed for you. Your losartan dose should now be 25 mg daily. Please see your primary care provider in the next 1 to 2 weeks for hospital follow-up visit. If you have not had them, you need a stress test and breathing tests to see if you have COPD or asthma, then proper medications started. 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 You qualify to go to Cardiac and Pulmonary Rehab (here on the ground level), once all the testing is done, and you would need a referral from your provider to attend. Plan of Treatment: As above. Care Goals: Improvement in symptoms and stabilization are the goals. Assessment: IsThis information sheet is provided a reminder. Additional Instructions or Follow Up instructions: If you have new or worsening symptoms, call your PCP or Genetic Supervisor or Director [facility] [facility] for advice, or come to the ER. Follow-Up Care: [facility], [facility] No Smoking: If you smoke, Please STOP! Call for help. Follow-up with: DINA COLLAZO MD [Physician No Access] -
--- NOTE | 2022-11-19 14:27 | DISCHARGE SUMMARY ---
Discharge Summary Admit Date: 11/14/22 Discharge Date: 11/19/22 Discharging Provider: Dr Sada Hunt Primary Care Provider: Dr Janice Aparicio Code Status: Do Not Attempt Resuscitation Condition at Discharge: Stable Discharge Disposition: 01 Home, Self Care - HPI History of Present Illness: This is an 86 F with HFrEF 45-50% on Echo done 2020, atrial fibrillation on warfarin, and hypertension who presents to the ED with complaint of dyspnea with exertion associated with 20lb weight gain, increase swelling in BLE, and loss of appetite. Patient reports symptoms for the past 1.5-2wks with initial loss of appetite. She subsequently noted progressive SOB and swelling in BLE. Patient currently has difficulty ambulating the same distance without SOB. She states no chest pain. She had an episode of palpitation more than a month ago that resolved without incident. She mentions no fever. No URIs symptoms. No n/v/d. No dysuria. No rash. No trauma. No change in medications. She reports weighing herself however she denies fluid restriction. She mentions having similar sxs before associated with worsening of her heart failure. Here in the ED, patient is noted for a retrocardic opacity on CXR without support for opacity. She is hypoxic with exertion to 88% while on RA. She has an elevated BNP in the 900s. She wants to be a DNR. - HOSPITAL COURSE Hospital Course: (1) Acute exacerbation of CHF Her last EF was 45-50%, by Echo which was done in Feb 2021, and then she had a stress test in Jun 2021 which showed no ischemia. Her hx and sxs and labs here supported a diagnosis of CHF exacerbation. Her cardiac enzymes were unremarkable. She was put on IV Lasix and had a 6L (-) fluid balance from excellent diuresis. Her blood pressure was "soft" and her Losartan needed to be on hold and Metoprolol dose decreased. At discharge, the Losartan dose was ordered to be decreased from 50 mg daily to 25 mg daily and Metoprolol decreased from 50 mg BID to 37.5 mg BID. We ordered an Echo on 11/14/2022, but it could not be done until 11/19/2022, because of no radiology technician here during those days. The Echo showed a normal LVEF of 55%, but with severe LV septal flattening consistent with cor pulmonale. Therefore she had acute Diastolic heart failure, possibly caused by Right heart overload, compressing her LV. Please consider repeating her stress test and having this patient followed by a Branch Director. (2) Cor pulmonale The Echo showed severe RV dilatation with depressed RV function, severely dilated left atrium and right atrium, severe tricuspid regurgitation, and pulm. HTN with resting PA pressure 55 mmHg (this is after being diuresed 6 L). These findings had been present on her 2020 Echo. The current Echo showed a new finding of a patent foramen ovale, likely from high pressure in both atria, stretching the interatrial septum open at the PFO. Prognosis is poor with Cor pulmonale. This patient needs to have further work-up in the form of PFTs and referral to a Tissue Recovery Technician. (3) Acute respiratory failure with hypoxia O2 saturation was 88% on RA with exertion. O2 was supplemented via NC. After diuresis her O2 needs decreased to room air and she had a walking test with oximetry on the day of discharge and did not need home O2 ordered. (4) Atrial fibrillation, chronic Heart rate was excessively bradycardic (36-43 during sleep) on her home dose of Metoprolol Tartrate 50 mg BID. We decreased that dose and discharged her on new Metoprolol Tartrate 37.5 mg BID. Her Coumadin was continued. (4) Hypertension Her BP was actually "soft" on her Metoprolol and with iv Lasix. Her Losartan was on hold and then was ordered to be dropped to 25 mg daily, after discharge. She needs VS monitoring to adjust meds if needed. (5) Supratherapeutic INR INR was 3.5 on warfarin. There was no acute bleed noted and hgb/hct stable. We followed her INR, holding the Coumadin when needed, target INR was 2 to 3. - ALLERGIES Allergies/Adverse Reactions: Allergies Allergy/AdvReac Type Severity Reaction Status Date / Time adhesive tape Allergy Rash Verified 05/22/22 13:21 codeine Allergy Emesis Verified 03/14/21 17:40 Penicillins Allergy Rash Verified 03/14/21 17:40 Sulfa (Sulfonamide Allergy Emesis Verified 03/14/21 17:40 Antibiotics) - MEDICATIONS Home Medications: Ambulatory Orders Medication Instructions Recorded Confirmed Cholecalciferol (Vitamin D3) 50 mcg ORAL DAILY 12/23/16 11/15/22 [Vitamin D3] Multivitamin [Multiple Vitamins] 1 tab ORAL DAILY 12/23/16 11/15/22 Warfarin [Coumadin] 5 mg ORAL SUTUTHSA@1700 12/23/16 11/15/22 Ferrous Sulfate 325 mg PO BIDWM 03/14/21 11/15/22 Furosemide [Lasix] 40 mg PO DAILY 03/14/21 11/15/22 Potassium Chloride 10 meq PO DAILY 03/14/21 11/15/22 Warfarin [Coumadin] 7.5 mg PO MOWEFR@1700 03/14/21 11/15/22 oxyBUTYnin chloride [Ditropan Xl] 10 mg PO DAILY 03/14/21 11/15/22 traMADol [Ultram] 100 mg PO BID 03/14/21 11/15/22 Acetaminophen [Tylenol] 1,500 mg PO BID PRN 11/15/22 11/15/22 Furosemide [Lasix] 40 mg PO 1200 PRN 11/15/22 11/15/22 Melatonin 10 mg PO QPM 11/15/22 11/15/22 Losartan Potassium 25 mg PO DAILY #30 tablet 11/19/22 Metoprolol Tartrate [Lopressor] 37.5 mg PO BID #90 tablet 11/19/22 - PHYSICAL EXAM AT DISCHARGE General Appearance: positive: No acute distress, Alert Eyes Bilateral: positive: Normal inspection, EOMI ENT: positive: ENT inspection nml, No signs of dehydration Neck: positive: Nml inspection, No JVD Respiratory: positive: No respiratory distress, Breath sounds nml Cardiovascular: positive: Irregularly irregular, Systolic murmur Abdomen: positive: Non-tender, No distention Skin: positive: Warm, Dry Extremities: positive: Non-tender, Other (1-2+leg edema to mid shins) Neurologic/Psychiatric: positive: Oriented x3, Motor nml - LABS Result Diagrams: 11/16/22 05:14 11/19/22 04:49 - DIAGNOSTIC IMAGING Diagnostic Imaging Results: Final report reviewed - FOLLOW UP Follow Up: See PCP in the next 1 to 2 weeks. She needs referral to a Branch Director and a Tissue Recovery Technician. - TIME SPENT Time Spent in Discharge (Minutes): 40
[2022-11-19 14:42] VITALS: BP 126/81
== END 2022-11-19 15:45 | disposition home or self-care (01) | DRG 291 ==
LOC: ED 19:14 → MS2 21:19
PROVIDERS: ADMIT Internal Medicine; ATTEND Internal Medicine
DX: I11.0 Hypertensive heart disease with heart failure (principal); I50.9 Heart failure, unspecified; I48.91 Unspecified atrial fibrillation; I50.43 Acute on chronic combined systolic (congestive) and diastolic (congestive) heart failure; I45.10 Unspecified right bundle-branch block; Z20.822 Contact with and (suspected) exposure to COVID-19; J96.01 Acute respiratory failure with hypoxia; I48.20 Chronic atrial fibrillation, unspecified; J98.11 Atelectasis; Q21.12 Patent foramen ovale; Z79.01 Long term (current) use of anticoagulants; R79.1 Abnormal coagulation profile; I27.81 Cor pulmonale (chronic); I27.20 Pulmonary hypertension, unspecified; Z66 Do not resuscitate
CPT/HCPCS: 36415; 71045; 80048; 80053; 82607; 82746; 82803; 83690; 83735; 83880; 84100; 84484; 85025; 85027; 85610; 87633; 93005; 93306; 94761; 96374; 99285; A9270; J1940

== ENCOUNTER 2022-11-26 09:34 | Outpatient (CLI) | payer MEDICARE | END 2022-11-26 09:35 | disposition home or self-care (01) | LOC: LAB.S 09:34 | PROVIDERS: ATTEND Family Medicine | DX: I48.20 Chronic atrial fibrillation, unspecified (principal) | CPT/HCPCS: 36416; 85610 ==

== ENCOUNTER 2022-12-20 10:04 | Outpatient (CLI) | payer MEDICARE | END 2022-12-20 10:05 | disposition home or self-care (01) | LOC: LAB.S 10:04 | PROVIDERS: ATTEND Family Medicine | DX: I48.20 Chronic atrial fibrillation, unspecified (principal) | CPT/HCPCS: 36416; 85610 ==

== ENCOUNTER 2023-01-16 10:23 | Outpatient (CLI) | payer MEDICARE | END 2023-01-16 10:24 | disposition home or self-care (01) | LOC: LAB.S 10:23 | PROVIDERS: ATTEND Family Medicine | DX: I48.20 Chronic atrial fibrillation, unspecified (principal) | CPT/HCPCS: 36416; 85610 ==

== ENCOUNTER 2023-01-27 13:22 | Outpatient (CLI) | payer MEDICARE ==
[2023-01-27 21:12] LABS: CALCIUM 9.7 mg/dL (8.5-10.3); CREATININE 1.2 mg/dL (0.6-1.3); POTASSIUM 4.7 mmol/L (3.5-4.5)
== END 2023-01-27 13:23 | disposition home or self-care (01) ==
LOC: LAB.S 13:22
PROVIDERS: ATTEND Internal Medicine Cardiovascular Disease
DX: I11.0 Hypertensive heart disease with heart failure (principal); I50.32 Chronic diastolic (congestive) heart failure; I48.20 Chronic atrial fibrillation, unspecified
CPT/HCPCS: 36415; 80048

== ENCOUNTER 2023-02-13 09:08 | Outpatient (CLI) | payer MEDICARE | END 2023-02-13 09:09 | disposition home or self-care (01) | LOC: LAB.S 09:08 | PROVIDERS: ATTEND Family Medicine | DX: I48.20 Chronic atrial fibrillation, unspecified (principal) | CPT/HCPCS: 36416; 85610 ==

== ENCOUNTER 2023-04-28 09:20 | Outpatient (CLI) | payer MEDICARE | END 2023-04-28 09:21 | disposition home or self-care (01) | LOC: LAB.S 09:20 | PROVIDERS: ATTEND Family Medicine | DX: I48.20 Chronic atrial fibrillation, unspecified (principal) | CPT/HCPCS: 36416; 85610 ==

== ENCOUNTER 2023-05-06 10:03 | Outpatient (CLI) | payer MEDICARE | END 2023-05-06 10:04 | disposition home or self-care (01) | LOC: LAB.S 10:03 | PROVIDERS: ATTEND Family Medicine | DX: I48.20 Chronic atrial fibrillation, unspecified (principal) | CPT/HCPCS: 36416; 85610 ==

== ENCOUNTER 2023-05-21 09:30 | Outpatient (CLI) | payer MEDICARE | END 2023-05-21 09:31 | disposition home or self-care (01) | LOC: LAB.S 09:30 | PROVIDERS: ATTEND Family Medicine | DX: I48.20 Chronic atrial fibrillation, unspecified (principal) | CPT/HCPCS: 36416; 85610 ==

== ENCOUNTER 2023-06-03 11:25 | Outpatient (CLI) | payer MEDICARE ==
[2023-06-03 15:34] LABS: CALCIUM 9.8 mg/dL (8.5-10.3); CREATININE 1.1 mg/dL (0.6-1.3); POTASSIUM 3.4 mmol/L (3.5-4.5)
== END 2023-06-03 11:26 | disposition home or self-care (01) ==
LOC: LAB.S 11:25
PROVIDERS: ATTEND Internal Medicine Cardiovascular Disease
DX: I50.32 Chronic diastolic (congestive) heart failure (principal)
CPT/HCPCS: 36415; 80048

== ENCOUNTER 2023-06-11 10:27 | Outpatient (CLI) | payer MEDICARE | END 2023-06-11 10:28 | disposition home or self-care (01) | LOC: LAB.S 10:27 | PROVIDERS: ATTEND Family Medicine | DX: I48.20 Chronic atrial fibrillation, unspecified (principal) | CPT/HCPCS: 36416; 85610 ==

== ENCOUNTER 2023-08-07 10:27 | Outpatient (CLI) | payer MEDICARE | END 2023-08-07 10:28 | disposition home or self-care (01) | LOC: LAB.S 10:27 | PROVIDERS: ATTEND Family Medicine | DX: I48.20 Chronic atrial fibrillation, unspecified (principal) | CPT/HCPCS: 36416; 85610 ==

== ENCOUNTER 2023-09-08 10:13 | Outpatient (CLI) | payer MEDICARE | END 2023-09-08 10:14 | disposition home or self-care (01) | LOC: LAB.S 10:13 | PROVIDERS: ATTEND Family Medicine | DX: I48.20 Chronic atrial fibrillation, unspecified (principal) | CPT/HCPCS: 36416; 85610 ==

== ENCOUNTER 2023-09-09 12:33 | Emergency (ER) | payer MEDICARE ==
--- NOTE | 2023-09-09 13:05 | ED Physician Documentation ---
History of Present Illness - Stated complaint Stated Complaint: LEG/FEET SWELLING/SOA - Chief complaint Chief Complaint: General - History obtained from History obtained from: Patient, Family - History of Present Illness Timing: How many weeks ago (2) - Additonal information Additional information: This is a pleasant 87-year-old with history of CHF and hypertension is nearly 3 weeks out from a right total hip replacement. Over the past 2 weeks she has developed lower extremity edema initially just on the right where she had her hip replaced but now bilaterally. This is gradually getting worse. She has had worsening dyspnea on exertion and orthopnea. 2 days ago she was having quite a bit of exertional CP, walking around holding her chest. Better last day or so. no pleuritic chest pain. No fevers or chills. She discussed her edema and weight gain with her PCP and the plan was to take an extra 40 mg of Lasix today. However due to her dyspnea she came to the ED. Chronically on 40 mg twice daily of Lasix. She is on warfarin postoperatively her INR yesterday was 2.1. Review of Systems Constitutional: denies: Fever, Chills Cardiac: reports: Pedal edema Respiratory: reports: Dyspnea. 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 HEENT: Tonsil/Adenoidectomy - Present Medications Home Medications: Ambulatory Orders Medication Instructions Recorded Confirmed Cholecalciferol (Vitamin D3) 50 mcg ORAL DAILY 12/23/16 09/09/23 [Vitamin D3] Multivitamin [Multiple Vitamins] 1 tab ORAL DAILY 12/23/16 09/09/23 Warfarin [Coumadin] 5 mg ORAL SUTUTHSA@1700 12/23/16 09/09/23 Ferrous Sulfate 325 mg PO BIDWM 03/14/21 09/09/23 Furosemide [Lasix] 40 mg PO DAILY 03/14/21 09/09/23 Potassium Chloride 10 meq PO DAILY 03/14/21 09/09/23 Warfarin [Coumadin] 7.5 mg PO MOWEFR@1700 03/14/21 09/09/23 oxyBUTYnin chloride [Ditropan Xl] 10 mg PO BID 03/14/21 09/09/23 traMADol [Ultram] 100 mg PO BID 03/14/21 09/09/23 Acetaminophen [Tylenol] 1,500 mg PO BID PRN 11/15/22 09/09/23 Furosemide [Lasix] 40 mg PO 1200 PRN 11/15/22 09/09/23 Melatonin 10 mg PO QPM 11/15/22 09/09/23 Losartan Potassium 25 mg PO DAILY #30 tablet 11/19/22 09/09/23 Metoprolol Tartrate [Lopressor] 37.5 mg PO BID #90 tablet 11/19/22 09/09/23 - Allergies Allergies/Adverse Reactions: Allergies Allergy/AdvReac Type Severity Reaction Status Date / Time adhesive tape Allergy Rash Verified 09/09/23 12:47 codeine Allergy Emesis Verified 09/09/23 12:47 Penicillins Allergy Rash Verified 09/09/23 12:47 Sulfa (Sulfonamide Allergy Emesis Verified 09/09/23 12:47 Antibiotics) - Social History Does the pt smoke?: No Smoking Status: Never smoker Does the pt drink ETOH?: No Does the pt have substance abuse?: No - Immunizations Immunizations are current?: Yes - POLST Patient has POLST: No POLST Status: DNR PD ED PE NORMAL - Vitals Vital signs reviewed: Yes - General General: Alert and oriented X 3, No acute distress - HEENT HEENT: Atraumatic - Neck Neck: Supple, no meningeal sign, No JVD - Cardiac Cardiac: RRR, No murmur - Respiratory Respiratory: Other (Audible wheeze, appears minimally breathless. No re spiratory distress.) - Abdomen Abdomen: Normal bowel sounds - Extremities Extremities: Other (2+ pitting edema afua) Results - Vitals Vitals: Vital Signs - 24 hr 09/09/23 09/09/23 09/09/23 12:47 12:57 14:12 Temperature 36.8 C 36.6 C Heart Rate 60 57 L 72 Respiratory 16 20 20 Rate Blood Pressure 113/63 124/76 115/73 O2 Saturation 100 94 94 Oxygen O2 Source Room air - EKG (time done) 1400 EKG releavant findings:: EKG personally interpreted by author of this note. Relevant findings are: Atrial fibrillation, rate 68. Right bundle branch block. Borderline ST depression lateral leads. No significant change compared with November 14, 2022 EKG. - Labs Labs: Laboratory Tests 09/09/23 09/09/23 09/09/23 13:20 13:20 13:20 WBC 6.2 RBC 2.96 L Hgb 9.9 L Hct 31.5 L MCV 106.4 H MCH 33.4 H MCHC 31.4 L RDW 13.2 Plt Count 436 MPV 8.2 Neut # (Auto) 4.6 Lymph # (Auto) 0.6 L Holmes # (Auto) 0.8 Eos # (Auto) 0.1 Baso # (Auto) 0.1 Absolute Nucleated RBC 0.00 Nucleated RBC % 0.0 PT 25.0 H INR 2.4 H Sodium 136 Potassium 3.9 Chloride 102 Carbon Dioxide 29 Anion Gap 5.0 L BUN 27 H Creatinine 1.0 Estimated GFR (MDRD) 53 L Glucose 89 Calcium 9.2 Total Bilirubin 0.6 AST 23 ALT 15 Alkaline Phosphatase 112 Troponin I High Sens 49.2 H* Total Protein 6.1 L Albumin 3.7 Globulin 2.4 Albumin/Globulin Ratio 1.5 09/09/23 14:42 WBC RBC Hgb Hct MCV MCH MCHC RDW Plt Count MPV Neut # (Auto) Lymph # (Auto) Holmes # (Auto) Eos # (Auto) Baso # (Auto) Absolute Nucleated RBC Nucleated RBC % PT INR Sodium Potassium Chloride Carbon Dioxide Anion Gap BUN Creatinine Estimated GFR (MDRD) Glucose Calcium Total Bilirubin AST ALT Alkaline Phosphatase Troponin I High Sens 51.1 H* Total Protein Albumin Globulin Albumin/Globulin Ratio - Rads (name of study) cxr Relevant Findings:: Final report received (Moderate lung base opacity and mild to moderate effusion. Mild perihilar opacities. Findings october ), EMP independent interpretation of test (CM, effusion L>R) PD Medical Decision Making - ED course Complexity details: reviewed old records, reviewed results, re-evaluated patient Reviewed Lab Results: Normal BUN and creatinine (19/07.) and electrolytes. Elevated high-sensitivity troponin of greater than 49. Slight anemia 9.9/31.5 Chest x-ray not surprisingly with some congestive heart failure. Her high sensitive troponin was repeated and found to be stable. She was given IV Lasix 100 mg here. Given that she has a normal respiratory rate normal resting oxygen saturation she should be stable for outpatient management. Will have her add the extra Lasix dose as was previously planned as an outpatient and closely follow-up with her PCP. Departure - Departure Disposition: 01 Home, Self Care Clinical Impression: Acute exacerbation of CHF (congestive heart failure) Qualifiers: Heart failure type: unspecified Qualified Code(s): I50.9 - Heart failure, unspecified Condition: Fair Instructions: Heart Failure Dc Follow-Up: Janice Aparicio MD [Primary Care Provider] - Comments: You look like you have a bit of fluid in your legs and in your lungs. We gave an extra dose of IV Lasix here but lets have you go up as discussed previously to taking an extra Lasix at noon for the next few days. Reassuringly, your respiratory rate and oxygen saturation are normal when we tested it today. Your kidneys are working fine, there was some mild elevation of the troponin which is a cardiac enzyme likely on the basis of what we would call demand ischemia due to your congestive heart failure. Continue on the remainder of your medications, but take the extra Lasix daily for the next few days and follow your weights closely. Return to the emergency department increasing chest pain increasing shortness of breath any other concerns. Forms: PCP List
[2023-09-09 13:26] LABS: BASOPHILS # (AUTO) 0.1 10^3/uL (0.0-0.1); BASOPHILS % (AUTO) 1.4 %; EOSINOPHILS # (AUTO) 0.1 10^3/uL (0.0-0.7); EOSINOPHILS % (AUTO) 1.9 %; HCT - HEMATOCRIT 31.5 % (37.0-47.0); HGB - HEMOGLOBIN 9.9 g/dL (12.0-16.0); LYMPHOCYTES # (AUTO) 0.6 10^3/uL (1.5-3.5); LYMPHOCYTES % (AUTO) 10.3 %; MEAN CORPUSCULAR HEMOGLOBIN 33.4 pg (27.0-31.0); MEAN CORPUSCULAR HGB CONC 31.4 g/dL (32.0-36.0); MEAN CORPUSCULAR VOLUME 106.4 fL (81.0-99.0); MEAN PLATELET VOLUME 8.2 fL (7.9-10.8); MONOCYTES # (AUTO) 0.8 10^3/uL (0.0-1.0); MONOCYTES % (AUTO) 12.5 %; NEUTROPHILS # (AUTO) 4.6 10^3/uL (1.5-6.6); NEUTROPHILS % (AUTO) 73.3 %; PLT - PLATELET COUNT 436 10^3/uL (130-450); RED BLOOD COUNT 2.96 10^6/uL (4.20-5.40); RED CELL DISTRIBUTION WIDTH 13.2 % (12.0-15.0); WHITE BLOOD COUNT 6.2 x10^3/uL (4.8-10.8)
[2023-09-09 13:41] LABS: ALBUMIN 3.7 g/dL (3.2-5.5); ALBUMIN/GLOBULIN RATIO 1.5 (1.0-2.2); BILIRUBIN,TOTAL 0.6 mg/dL (0.2-1.0); CALCIUM 9.2 mg/dL (8.5-10.3); POTASSIUM 3.9 mmol/L (3.5-4.5); TOTAL PROTEIN 6.1 g/dL (6.4-8.9)
[2023-09-09 13:49] LABS: TROPONIN I HIGH SENSITIVITY 49.2 ng/L (2.3-14.8)
--- NOTE | 2023-09-09 13:49 | XRAY Report ---
PROCEDURE: Chest 1V INDICATIONS: edema TECHNIQUE: One view of the chest was acquired. COMPARISON: 11/14/2022 FINDINGS: Surgical changes and devices: Left shoulder reverse arthroplasty. Lungs and pleura: Mild bilateral perihilar opacities. Moderate left lung base opacity and mild to mo derate effusion. Mediastinum: Heart borders are obscured. There is cardiomegaly. Bones and chest wall: Degenerative changes. IMPRESSION: Moderate lung base opacity and mild to moderate effusion. Mild perihilar opacities. Findings may repr esent infection/inflammation versus edema. Cardiomegaly. Consider future imaging surveillance to asse ss for resolution. Reviewed by: Finn Elaine MD on 09/09/2023 1:47 PM PDT Approved by: Finn Elaine MD on 09/09/2023 1:47 PM PDT Station ID: [id number]
--- NOTE | 2023-09-09 14:01 | Ultrasound Report ---
PROCEDURE: Duplex Ext Veins Bilateral INDICATIONS: Joey Abdi MD TECHNIQUE: Real-time imaging, as well as color and pulse Doppler interrogation, were performed of the deep veins of both legs from the inguinal ligament to the popliteal fossa. Attempted visualization of the calf veins was performed. COMPARISON: None FINDINGS: The deep veins are normally compressible, and free of intraluminal thrombus. Color and pu lse Doppler demonstrate normal phasic intravascular flow. There is normal augmentation response to d istal compression maneuver. Lower leg veins were not well seen. There is soft tissue edema. IMPRESSION: No deep venous thrombosis of the visualized lower extremities. The lower leg veins were not well seen . Soft tissue edema is present. Reviewed by: Finn Elaine MD on 09/09/2023 1:59 PM PDT Approved by: Finn Elaine MD on 09/09/2023 1:59 PM PDT Station ID: [id number]
[2023-09-09] MEDS: FUROSEMIDE 100 MG/10 ML VIAL IVP STA (14:17)
[2023-09-09 14:18] LABS: INR 2.4 (0.8-1.2)
[2023-09-09] MEDS: ACETAMINOPHEN 500 MG TABLET PO STA (15:44)
[2023-09-09 16:13] VITALS: BP 115/60; O2SAT 97
== END 2023-09-09 16:21 | disposition home or self-care (01) ==
LOC: ED 12:33
DX: I50.9 Heart failure, unspecified (principal)
CPT/HCPCS: 36415; 71045; 80053; 84484; 85025; 85610; 93005; 93970; 96374; 99284; A9270; J1940

== ENCOUNTER 2023-09-25 10:13 | Outpatient (CLI) | payer MEDICARE | END 2023-09-25 10:14 | disposition home or self-care (01) | LOC: LAB.S 10:13 | PROVIDERS: ATTEND Family Medicine | DX: I48.20 Chronic atrial fibrillation, unspecified (principal) | CPT/HCPCS: 36416; 85610 ==

== ENCOUNTER 2023-10-06 09:38 | Outpatient (CLI) | payer MEDICARE | END 2023-10-06 09:39 | disposition home or self-care (01) | LOC: LAB.S 09:38 | PROVIDERS: ATTEND Family Medicine | DX: I48.20 Chronic atrial fibrillation, unspecified (principal) | CPT/HCPCS: 36416; 85610 ==

== ENCOUNTER 2023-10-21 08:51 | Outpatient (CLI) | payer MEDICARE | END 2023-10-21 08:52 | disposition home or self-care (01) | LOC: LAB.S 08:51 | PROVIDERS: ATTEND Family Medicine | DX: I48.20 Chronic atrial fibrillation, unspecified (principal) | CPT/HCPCS: 36416; 85610 ==

== ENCOUNTER 2023-11-10 09:01 | Outpatient (CLI) | payer MEDICARE | END 2023-11-10 09:02 | disposition home or self-care (01) | LOC: LAB.S 09:01 | PROVIDERS: ATTEND Family Medicine | DX: I48.20 Chronic atrial fibrillation, unspecified (principal) | CPT/HCPCS: 36416; 85610 ==

== ENCOUNTER 2023-11-10 14:29 | Outpatient (CLI) | payer MEDICARE | END 2023-11-10 14:30 | disposition home or self-care (01) | LOC: LAB.N 14:29 | PROVIDERS: ATTEND Registered Nurse | DX: R82.79 Other abnormal findings on microbiological examination of urine (principal); M54.9 Dorsalgia, unspecified; I48.20 Chronic atrial fibrillation, unspecified | CPT/HCPCS: 36416; 85610; 87077; 87086; 87181 ==

== ENCOUNTER 2023-11-15 09:57 | Emergency (ER) | payer MEDICARE ==
--- NOTE | 2023-11-15 10:35 | ED Physician Documentation ---
PD HPI BACK PAIN - Stated complaint Stated Complaint: BACK PX - Chief complaint Chief Complaint: Back Pain - History obtained from History obtained from: Patient - Additional information Additional information: Little over a week and a half ago she was doing a lot of gardening. This was out of the ordinary for her, she had been mostly sedentary after having her hip replaced a few months ago. There was no specific injury, but she thinks she overdid it and since then has had severe low back pain. She went to the clinic where she received carisoprodol and was also diagnosed with UTI and is on an tibiotics for same. Culture grew Klebsiella pneumonia a which was resistant to ampicillin and intermediate to nitrofurantoin. Sensitive to everything else. She is on Keflex for that. Note made of chronic anticoagulation. She denies any weakness, numbness, tingling of the legs or perineal area. She has chronic urinary incontinence, no change. She does have some burning dysuria still. She is here with her daughter. 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 HEENT: Tonsil/Adenoidectomy - Present Medications Home Medications: Ambulatory Orders Medication Instructions Recorded Confirmed Cholecalciferol (Vitamin D3) 50 mcg ORAL DAILY 12/23/16 09/09/23 [Vitamin D3] Multivitamin [Multiple Vitamins] 1 tab ORAL DAILY 12/23/16 09/09/23 Warfarin [Coumadin] 5 mg ORAL SUTUTHSA@1700 12/23/16 09/09/23 Ferrous Sulfate 325 mg PO BIDWM 03/14/21 09/09/23 Furosemide [Lasix] 40 mg PO DAILY 03/14/21 09/09/23 Potassium Chloride 10 meq PO DAILY 03/14/21 09/09/23 Warfarin [Coumadin] 7.5 mg PO MOWEFR@1700 03/14/21 09/09/23 oxyBUTYnin chloride [Ditropan Xl] 10 mg PO BID 03/14/21 09/09/23 traMADol [Ultram] 100 mg PO BID 03/14/21 09/09/23 Acetaminophen [Tylenol] 1,500 mg PO BID PRN 11/15/22 09/09/23 Furosemide [Lasix] 40 mg PO 1200 PRN 11/15/22 09/09/23 Melatonin 10 mg PO QPM 11/15/22 09/09/23 Losartan Potassium 25 mg PO DAILY #30 tablet 11/19/22 09/09/23 Metoprolol Tartrate [Lopressor] 37.5 mg PO BID #90 tablet 11/19/22 09/09/23 oxyCODONE [Roxicodone] 5 mg PO Q4-6H PRN #15 tablet 11/15/23 - Allergies Allergies/Adverse Reactions: Allergies Allergy/AdvReac Type Severity Reaction Status Date / Time adhesive tape Allergy Rash Verified 11/15/23 10:09 codeine Allergy Emesis Verified 11/15/23 10:09 Penicillins Allergy Rash Verified 11/15/23 10:09 Sulfa (Sulfonamide Allergy Emesis Verified 11/15/23 10:09 Antibiotics) - Social History Does the pt smoke?: No Smoking Status: Never smoker Does the pt drink ETOH?: No Does the pt have substance abuse?: No - Immunizations Immunizations are current?: Yes - POLST Patient has POLST: No POLST Status: DNR PD ED PE NORMAL - Vitals Vital signs reviewed: Yes - General General: Alert and oriented X 3, No acute distress - Abdomen Abdomen: Normal bowel sounds, Soft, Non tender - Back Back: Other (Tender to the mid lumbar spine. No paralumbar spinal tenderness.) - Derm Derm: Normal color, Warm and dry - Extremities Extremities: Other (Diminished reflexes in the lower extremity presumably related to bilateral TKR's. Sensation and strength intact throughout the lower extremities.) - Neuro Neuro: Alert and oriented X 3 Results - Vitals Vitals: Vital Signs - 24 hr 11/15/23 11/15/23 10:09 12:04 Temperature 36.2 C L 36.4 C L Heart Rate 65 63 Respiratory 16 18 Rate Blood Pressure 115/60 122/61 O2 Saturation 100 99 Oxygen O2 Source Room air - Labs Labs: Laboratory Tests 11/15/23 11/15/23 11:20 11:30 INR (Fingerstick) 2.3 H Urine Color YELLOW Urine Clarity CLEAR Urine pH 5.5 Ur Specific [place] 1.010 Urine Protein NEGATIVE Urine Glucose (UA) 250 H Urine Ketones NEGATIVE Urine Occult Blood NEGATIVE Urine Nitrite NEGATIVE Urine Bilirubin NEGATIVE Urine Urobilinogen 0.2 (NORMAL) Ur Leukocyte Esterase NEGATIVE Ur Microscopic Review NOT INDICATED Urine Culture Comments NOT INDICATED - Rads (name of study) CT L Spine Relevant Findings:: Final report received (Severe, multilevel degenerative disease and diffuse facet arthrosis, resulting in up to severe spinal canal narrowing at L1-2 and L2-3, and up to severe neural foraminal narrowing at L1-2 and L3-4.), EMP independent interpretation of test PD Medical Decision Making - ED course ED course: 87-year-old woman with low back pain. Seems musculoskeletal. Vascular referred pain was considered but it seems to reproducible for that. Given advanced age CT imaging was done with the findings above. She was feeling better after oxycodone. Urine was rechecked and without persistent signs of infection. INR was therapeutic. Departure - Departure Disposition: Home, Self Care Clinical Impression: Back pain Condition: Good Record reviewed to determine appropriate education?: Yes Instructions: ED Low Back Pain Injury Prescriptions: oxyCODONE [Roxicodone] 5 mg PO Q4-6H PRN #15 tablet PRN Reason: Pain Comments: I sent your prescription electronically to [facility] in [place]. Follow-up with your primary care physician with consideration for physical therapy referral. Your urinalysis has normalized and your INR today was in the therapeutic range. I am prescribing a short course of narcotic pain medication for you. These are potentially dangerous and addictive medications that should be used carefully. These medications may constipate you. Take an [id number] stool softener (docusate) twice daily with plenty of water while taking these medications. If you go 24 hours without a bowel movement, take [id number] miralax, per package instructions. Do not drink or drive while taking these medications. If you received narcotic or sedating medications while in the emergency department, do not drive for 24 hours. Store this medication in a safe, secure place and out of reach of children. It is a violation of federal law to give or sell this medication to another person or to use in a manner other than prescribed. The ED will not refill narcotic prescriptions, including prescriptions lost or stolen. To dispose of unwanted medications: 1. [facility] provides a [facility] box for medication in pill form only (no liquids) 8:00 am to 4:30 p.m. Friday-Friday in the lobby of the [facility] [place], [address] Empty pills into ziplock bag before disposal. Call [phone] for information. 2.[employer] is a free service available to all [facility] residents. Go to [email or web address] Note that many narcotic pain relievers also contain Tylenol/acetaminophen. Please ensure that your total dose of acetaminophen from all sources does not exceed 3 g (3000 mg) per day. Discharge Date/Time: 11/15/23 12:04
[2023-11-15] MEDS: oxyCODONE 5 MG TABLET PO STA (10:42)
--- NOTE | 2023-11-15 11:21 | CT Report ---
PROCEDURE: Lumbar Spine WO INDICATIONS: back pain/inj TECHNIQUE: Noncontrast 3 mm thick sections acquired from the T12 level to the sacrum. Sagittal and coronal refo rmats were constructed. For radiation dose reduction, the following was used: automated exposure co ntrol, adjustment of mA and/or kV according to patient size. COMPARISON: CT 10/05/2010. FINDINGS: Image quality: Excellent. Bones: Convex left scoliosis centered at L3. No acute vertebral body compression fractures. No suspi cious lytic or blastic bony lesions. No pars defects. Grade 1 anterolisthesis of L4 on L5. T12-L1: Moderate disc height loss and facet arthrosis. L1-L2: Disc osteophyte complex, severe disc height loss and facet arthrosis causing moderate spina l canal narrowing. Severe right neural foraminal narrowing. Severe left neural foraminal narrowing. L2-L3: Disc osteophyte complex, severe disc height loss and moderate facet arthrosis causing sever e spinal canal narrowing. Moderate right neural foraminal narrowing. Moderate left neural foraminal n arrowing. L3-L4: Disc osteophyte complex, moderate disc height loss, severe facet hypertrophy causing severe spinal canal narrowing. Severe right neural foraminal narrowing. L4-L5: Disc osteophyte complex and severe facet hypertrophy causing mild spinal canal narrowing. L5-S1: Severe facet arthrosis and moderate hypertrophy. Soft tissues: No retroperitoneal masses or hematomas. Visualized aorta is normal in caliber. Small bilateral pleural effusions. Right total hip arthroplasty. 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 No acute compression deformity. Reviewed by: Esteban Sams MD on 11/15/2023 11:20 AM PDT Approved by: Esteban Sams MD on 11/15/2023 11:20 AM PDT Station ID: [id number]
[2023-11-15 11:44] LABS: BILIRUBIN,URINE NEGATIVE (NEGATIVE); CLARITY,URINE CLEAR (CLEAR); GLUCOSE, URINE (UA) 250 mg/dL (NEGATIVE); KETONES,URINE (UA) NEGATIVE (NEGATIVE); LEUKOCYTE ESTERASE, URINE NEGATIVE (NEGATIVE); NITRITE,URINE NEGATIVE (NEGATIVE); OCCULT BLOOD,URINE NEGATIVE (NEGATIVE); PH,URINE 5.5 PH (5.0-7.5); PROTEIN,URINE NEGATIVE (NEGATIVE); UROBILINOGEN,URINE 0.2 (NORMAL) E.U./dL (NORMAL)
[2023-11-15 12:12] VITALS: BP 122/61; O2SAT 99
== END 2023-11-15 12:04 | disposition home or self-care (01) ==
LOC: ED 09:57
DX: M54.50 Low back pain, unspecified (principal); I48.91 Unspecified atrial fibrillation; Z79.01 Long term (current) use of anticoagulants; Z66 Do not resuscitate
CPT/HCPCS: 36416; 72131; 81003; 85610; 99283; A9270; 81001; 87086

== ENCOUNTER 2023-11-27 10:27 | Outpatient (CLI) | payer MEDICARE | END 2023-11-27 10:28 | disposition home or self-care (01) | LOC: LAB.S 10:27 | PROVIDERS: ATTEND Family Medicine | DX: I48.20 Chronic atrial fibrillation, unspecified (principal) | CPT/HCPCS: 36416; 85610 ==

== ENCOUNTER 2023-12-11 10:28 | Outpatient (CLI) | payer MEDICARE | END 2023-12-11 10:29 | disposition home or self-care (01) | LOC: LAB.S 10:28 | PROVIDERS: ATTEND Family Medicine | DX: I48.20 Chronic atrial fibrillation, unspecified (principal) | CPT/HCPCS: 36416; 85610 ==

== ENCOUNTER 2023-12-31 09:07 | Outpatient (CLI) | payer MEDICARE | END 2023-12-31 09:08 | disposition home or self-care (01) | LOC: LAB.S 09:07 | PROVIDERS: ATTEND Family Medicine | DX: I48.20 Chronic atrial fibrillation, unspecified (principal) | CPT/HCPCS: 36416; 85610 ==

== ENCOUNTER 2024-01-16 10:19 | Outpatient (CLI) | payer MEDICARE | END 2024-01-16 10:20 | disposition home or self-care (01) | LOC: LAB.S 10:19 | PROVIDERS: ATTEND Family Medicine | DX: I48.20 Chronic atrial fibrillation, unspecified (principal) | CPT/HCPCS: 36416; 85610 ==

== ENCOUNTER 2024-01-30 10:14 | Outpatient (CLI) | payer MEDICARE | END 2024-01-30 10:15 | disposition home or self-care (01) | LOC: LAB.S 10:14 | PROVIDERS: ATTEND Family Medicine | DX: I48.20 Chronic atrial fibrillation, unspecified (principal) | CPT/HCPCS: 85610 ==

== ENCOUNTER 2024-01-30 16:51 | Emergency (ER) | payer MEDICARE ==
--- NOTE | 2024-01-30 19:25 | ED Physician Documentation ---
PD HPI LOWER EXT INJURY - Stated complaint Stated Complaint: SWOLLEN LEGS - Chief complaint Chief Complaint: Ext Problem - History obtained from History obtained from: Patient, Family - Additional information Additional information: 88-year-old female presents stating that she was told to come in to make sure that she does not have a blood clot in her lower extremities. She reports chronic swelling of her legs and currently takes warfarin. Patient states that last week she had her warfarin dosage adjusted, but her recheck INR today was 1.6. With her swelling she was told to come in to make sure that she does not have a blood clot. Patient states that she always has swelling. It does not really seem worse today than usual. She does have compression socks but does not really wear them. She states she tries to elevate her legs but does not always remember. Takes 40mg BID lasix, dosage not changed recently. Patient states that she otherwise feels normal. Review of Systems Constitutional: denies: Fever, Chills GI: denies: Abdominal Pain, Nausea, Vomiting Musculoskeletal: reports: Extremity swelling. 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 HEENT: Tonsil/Adenoidectomy - Present Medications Home Medications: Ambulatory Orders Medication Instructions Recorded Confirmed Cholecalciferol (Vitamin D3) 50 mcg ORAL DAILY 12/23/16 09/09/23 [Vitamin D3] Multivitamin [Multiple Vitamins] 1 tab ORAL DAILY 12/23/16 09/09/23 Warfarin [Coumadin] 5 mg ORAL SUTUTHSA@1700 12/23/16 09/09/23 Ferrous Sulfate 325 mg PO BIDWM 03/14/21 09/09/23 Furosemide [Lasix] 40 mg PO DAILY 03/14/21 09/09/23 Potassium Chloride 10 meq PO DAILY 03/14/21 09/09/23 Warfarin [Coumadin] 7.5 mg PO MOWEFR@1700 03/14/21 09/09/23 oxyBUTYnin chloride [Ditropan Xl] 10 mg PO BID 03/14/21 09/09/23 traMADol [Ultram] 100 mg PO BID 03/14/21 09/09/23 Acetaminophen [Tylenol] 1,500 mg PO BID PRN 11/15/22 09/09/23 Furosemide [Lasix] 40 mg PO 1200 PRN 11/15/22 09/09/23 Melatonin 10 mg PO QPM 11/15/22 09/09/23 Losartan Potassium 25 mg PO DAILY #30 tablet 11/19/22 09/09/23 Metoprolol Tartrate [Lopressor] 37.5 mg PO BID #90 tablet 11/19/22 09/09/23 oxyCODONE [Roxicodone] 5 mg PO Q4-6H PRN #15 tablet 11/15/23 - Allergies Allergies/Adverse Reactions: Allergies Allergy/AdvReac Type Severity Reaction Status Date / Time adhesive tape Allergy Rash Verified 01/30/24 17:00 codeine Allergy Emesis Verified 01/30/24 17:00 Penicillins Allergy Rash Verified 01/30/24 17:00 Sulfa (Sulfonamide Allergy Emesis Verified 01/30/24 17:00 Antibiotics) - Social History Does the pt smoke?: No Smoking Status: Never smoker Does the pt drink ETOH?: No Does the pt have substance abuse?: No - Immunizations Immunizations are current?: Yes - POLST Patient has POLST: No POLST Status: DNR PD ED PE NORMAL - Vitals Vital signs reviewed: Yes - General General: Alert and oriented X 3, No acute distress, Well developed/nourished - Cardiac Cardiac: Strong equal pulses, Other (irregularly irregular) - Respiratory Respiratory: No respiratory distress, Clear bilaterally - Abdomen Abdomen: Soft, Non tender, Non distended - Derm Derm: Normal color, Warm and dry, No rash - Extremities Extremities: No deformity, No tenderness to palpate, Other (2+ pitting edema to thighs bilaterally. 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 Patient has chronic venous stasis changes of her lower extremities without excessive warmth or pain to suggest acute cellulitis. Patient negative for DVT. She states that she feels otherwise well and would like to go home. She was advised to continue taking her Lasix, to wear compression stockings to help decrease swelling, and to follow-up as needed with her primary care team. Departure - Departure Disposition: 01 Home, Self Care Clinical Impression: Lower extremity edema Condition: Stable Instructions: ED Edema Legs Bilateral Comments: Wear compression stockings and elevate your legs above heart level to help decrease swelling. Continue to monitor your INR Forms: PCP List Discharge Date/Time: 01/30/24 19:38
--- NOTE | 2024-01-30 19:30 | Ultrasound Report ---
PROCEDURE: Duplex Ext Veins Bilateral INDICATIONS: Aleksander Iqbal MD TECHNIQUE: Real-time imaging, as well as color and pulse Doppler interrogation, were performed of the deep veins of both legs from the inguinal ligament to the popliteal fossa. Attempted visualization of the calf veins was performed. COMPARISON: 11/09/2023 FINDINGS: The deep veins are normally compressible, and free of intraluminal thrombus. Color and pu lse Doppler demonstrate normal phasic intravascular flow. There is normal augmentation response to d istal compression maneuver. IMPRESSION: No deep venous thrombosis of the visualized lower extremities. Reviewed by: Esteban Sams MD on 01/30/2024 7:29 PM PDT Approved by: Esteban Sams MD on 01/30/2024 7:29 PM PDT Station ID: [id number]
[2024-01-30 19:44] VITALS: BP 136/83; O2SAT 99
== END 2024-01-30 19:38 | disposition home or self-care (01) ==
LOC: ED 16:51
DX: R60.0 Localized edema (principal); Z79.899 Other long term (current) drug therapy; Z66 Do not resuscitate; I48.20 Chronic atrial fibrillation, unspecified
CPT/HCPCS: 80053; 85025; 85610; 93970; 99283; 99284

== ENCOUNTER 2024-02-13 08:22 | Outpatient (CLI) | payer MEDICARE | END 2024-02-13 08:23 | disposition home or self-care (01) | LOC: LAB.S 08:22 | PROVIDERS: ATTEND Family Medicine | DX: I48.20 Chronic atrial fibrillation, unspecified (principal) | CPT/HCPCS: 36416; 85610 ==

== ENCOUNTER 2024-03-03 09:54 | Outpatient (CLI) | payer MEDICARE | END 2024-03-03 09:55 | disposition home or self-care (01) | LOC: LAB.S 09:54 | PROVIDERS: ATTEND Family Medicine | DX: I48.20 Chronic atrial fibrillation, unspecified (principal) | CPT/HCPCS: 36416; 85610 ==